=== PATIENT | female | born 1950 | race Caucasian/White ===

== ENCOUNTER 2017-08-07 15:46 | Emergency (ER) | payer MEDICARE, OTHER ==
[2017-08-07] MEDS ORDERED: ONDANSETRON 4 MG/2 ML VIAL IVP STA (16:05)
[2017-08-07] MEDS ORDERED: SODIUM CHLORIDE 0.9% 1,000 ML IV STA ×2 (16:05)
[2017-08-07] MEDS ORDERED: ACETAMINOPHEN IV (For NPO) 1,000 MG in EMPTY BAG 1 BAG IVPB STA (16:05)
[2017-08-07] MEDS ORDERED: KETOROLAC 30 MG/ML 1 ML VIAL IVP STA (16:05)
--- NOTE | 2017-08-07 16:06 | ED ---
General Adult HPI - General Chief complaint: Fever Stated complaint: Diarrhea Time Seen by Provider: 08/07/17 16:04 Source: patient, RN notes reviewed, old records reviewed Mode of arrival: ambulatory Limitations: no limitations - History of Present Illness Initial comments: This is a 67 showed female to the ER for evaluation. This patient presents for evaluation regarding nausea vomiting and diarrhea. Patient will slurred of fever. No recent antibiotic use. Denies cough or congestion no sore throat no rashes. No dysuria. No blood in her stool or vomit. No known sick contacts or recent travel history. - Related Data Previous Rx's Medication Instructions Recorded Ondansetron Odt [Zofran ODT] 4 mg PO Q8HR PRN #30 tab 08/07/17 Allergies Allergy/AdvReac Type Severity Reaction Status Date / Time Penicillins Allergy Unknown Verified 08/07/17 16:58 Review of Systems ROS Statement: Those systems with pertinent positive or pertinent negative responses have been documented in the HPI. ROS Other: All systems not noted in ROS Statement are negative. Past Medical History Past Medical History: No Reported History History of Any Multi-Drug Resistant Organisms: None Reported Past Surgical History: Joint Replacement Past Psychological History: No Psychological Hx Reported Smoking Status: Never smoker Past Alcohol Use History: None Reported Past Drug Use History: None Reported General Exam Limitations: no limitations General appearance: alert, in no apparent distress Head exam: Present: atraumatic, normocephalic, normal inspection Eye exam: Present: normal appearance, PERRL, EOMI. Absent: scleral icterus, conjunctival injection, periorbital swelling ENT exam: Present: normal exam, mucous membranes moist Neck exam: Present: normal inspection. Absent: tenderness, meningismus, lymphadenopathy Respiratory exam: Present: normal lung sounds bilaterally. Absent: respiratory distress, wheezes, rales, rhonchi, stridor Cardiovascular Exam: Present: normal rhythm, tachycardia, normal heart sounds. Absent: systolic murmur, diastolic murmur, rubs, gallop, clicks GI/Abdominal exam: Present: soft, normal bowel sounds. Absent: distended, tenderness, guarding, rebound, rigid Extremities exam: Present: normal inspection, full ROM, normal capillary refill. Absent: tenderness, pedal edema, joint swelling, calf tenderness Back exam: Present: normal inspection Neurological exam: Present: alert, oriented X3, CN II-XII intact Psychiatric exam: Present: normal affect, normal mood Skin exam: Present: warm, dry, intact, normal color. Absent: rash Course Vital Signs 08/07/17 08/07/17 08/07/17 15:54 16:19 16:30 Temperature 102.4 F H 102.5 F H Pulse Rate 112 H 110 H Respiratory 20 18 Rate Blood Pressure 137/62 130/69 O2 Sat by Pulse 96 96 Oximetry 08/07/17 08/07/17 17:52 20:08 Temperature 100.2 F H 99.0 F Pulse Rate 88 106 H Respiratory 18 18 Rate Blood Pressure 100/51 100/53 O2 Sat by Pulse 98 Oximetry EKG Findings - EKG Comments: EKG Findings:: EKG shows sinus tachycardia rate 105, RI 124, QRS 96, QTc 462 Medical Decision Making - Medical Decision Making 67-year-old female to the ER for evaluation of fever. Diarrhea. No source of fever found. Flow as well as significant 30 for fever negative and patient can be discharged home - Lab Data Result diagrams: 08/07/17 16:10 08/07/17 16:10 Lab Results 08/07/17 08/07/17 08/07/17 Range/Units 16:10 16:10 16:10 WBC 15.4 H (3.8-10.6) k/uL RBC 4.49 (3.80-5.40) m/uL Hgb 13.5 (11.4-16.0) gm/dL Hct 40.1 (34.0-46.0) % MCV 89.2 (80.0-100.0) fL MCH 30.0 (25.0-35.0) pg MCHC 33.6 (31.0-37.0) g/dL RDW 14.5 (11.5-15.5) % Plt Count 176 (150-450) k/uL Neutrophils % 83 % Lymphocytes % 4 % Monocytes % 9 % Eosinophils % 0 % Basophils % 0 % Neutrophils # 12.9 H (1.3-7.7) k/uL Lymphocytes # 0.6 L (1.0-4.8) k/uL Monocytes # 1.5 H (0-1.0) k/uL Eosinophils # 0.0 (0-0.7) k/uL Basophils # 0.0 (0-0.2) k/uL PT (9.0-12.0) sec INR (<1.2) APTT (22.0-30.0) sec Sodium 132 L (137-145) mmol/L Potassium 4.0 (3.5-5.1) mmol/L Chloride 101 (98-107) mmol/L Carbon Dioxide 20 L (22-30) mmol/L Anion Gap 11 mmol/L BUN 15 (7-17) mg/dL Creatinine 0.81 (0.52-1.04) mg/dL Est GFR (MDRD) Af Amer >60 (>60 ml/min/1.73 sqM) Est GFR (MDRD) Non-Af >60 (>60 ml/min/1.73 sqM) Glucose 104 H (74-99) mg/dL Calcium 8.9 (8.4-10.2) mg/dL Phosphorus 2.4 L (2.5-4.5) mg/dL Magnesium 1.7 (1.6-2.3) mg/dL Total Bilirubin 1.0 (0.2-1.3) mg/dL AST 25 (14-36) U/L ALT 30 (9-52) U/L Alkaline Phosphatase 73 (38-126) U/L Total Creatine Kinase 95 (30-135) U/L CK-MB (CK-2) 0.7 (0.0-2.4) ng/mL CK-MB (CK-2) Rel Index 0.7 Troponin I 0.017 (0.000-0.034) ng/mL Total Protein 6.5 (6.3-8.2) g/dL Albumin 3.9 (3.5-5.0) g/dL Lipase 56 (23-300) U/L Urine Color Urine Appearance (Clear) Urine pH (5.0-8.0) Ur Specific [place] (1.001-1.035) Urine Protein (Negative) Urine Glucose (UA) (Negative) Urine Ketones (Negative) Urine Blood (Negative) Urine Nitrite (Negative) Urine Bilirubin (Negative) Urine Urobilinogen (<2.0) mg/dL Ur Leukocyte Esterase (Negative) Urine RBC (0-5) /hpf Urine WBC (0-5) /hpf Ur Squamous Epith Cells (0-4) /hpf Urine Bacteria (None) /hpf Cellular Casts (0) /lpf Granular Casts (0) /lpf Urine Mucus (None) /hpf Influenza Type A RNA (Not Detectd) Influenza Type B (PCR) (Not Detectd) 08/07/17 08/07/17 08/07/17 Range/Units 16:10 16:10 16:57 WBC (3.8-10.6) k/uL RBC (3.80-5.40) m/uL Hgb (11.4-16.0) gm/dL Hct (34.0-46.0) % MCV (80.0-100.0) fL MCH (25.0-35.0) pg MCHC (31.0-37.0) g/dL RDW (11.5-15.5) % Plt Count (150-450) k/uL Neutrophils % % Lymphocytes % % Monocytes % % Eosinophils % % Basophils % % Neutrophils # (1.3-7.7) k/uL Lymphocytes # (1.0-4.8) k/uL Monocytes # (0-1.0) k/uL Eosinophils # (0-0.7) k/uL Basophils # (0-0.2) k/uL PT 12.1 H (9.0-12.0) sec INR 1.2 H (<1.2) APTT 29.3 (22.0-30.0) sec Sodium (137-145) mmol/L Potassium (3.5-5.1) mmol/L Chloride (98-107) mmol/L Carbon Dioxide (22-30) mmol/L Anion Gap mmol/L BUN (7-17) mg/dL Creatinine (0.52-1.04) mg/dL Est GFR (MDRD) Af Amer (>60 ml/min/1.73 sqM) Est GFR (MDRD) Non-Af (>60 ml/min/1.73 sqM) Glucose (74-99) mg/dL Calcium (8.4-10.2) mg/dL Phosphorus (2.5-4.5) mg/dL Magnesium (1.6-2.3) mg/dL Total Bilirubin (0.2-1.3) mg/dL AST (14-36) U/L ALT (9-52) U/L Alkaline Phosphatase (38-126) U/L Total Creatine Kinase (30-135) U/L CK-MB (CK-2) (0.0-2.4) ng/mL CK-MB (CK-2) Rel Index Troponin I (0.000-0.034) ng/mL Total Protein (6.3-8.2) g/dL Albumin (3.5-5.0) g/dL Lipase (23-300) U/L Urine Color Yellow Urine Appearance Cloudy H (Clear) Urine pH 5.5 (5.0-8.0) Ur Specific [place] 1.023 (1.001-1.035) Urine Protein 2+ H (Negative) Urine Glucose (UA) Negative (Negative) Urine Ketones 2+ H (Negative) Urine Blood Moderate H (Negative) Urine Nitrite Negative (Negative) Urine Bilirubin Negative (Negative) Urine Urobilinogen <2.0 (<2.0) mg/dL Ur Leukocyte Esterase Negative (Negative) Urine RBC 15 H (0-5) /hpf Urine WBC 6 H (0-5) /hpf Ur Squamous Epith Cells <1 (0-4) /hpf Urine Bacteria Occasional H (None) /hpf Cellular Casts 1 (0) /lpf Granular Casts 6 (0) /lpf Urine Mucus Moderate H (None) /hpf Influenza Type A RNA Not Detected (Not Detectd) Influenza Type B (PCR) Not Detected (Not Detectd) - Radiology Data Radiology results: report reviewed (Gallbladder ultrasound, x-ray, CT head and pelvis is negative for acute disease), image reviewed Disposition Clinical Impression: Viral infection, Fever, Colitis Disposition: HOME SELF-CARE Condition: Good Instructions: Fever in Adults (ED), Colitis (ED) Prescriptions: Ondansetron Odt [Zofran ODT] 4 mg PO Q8HR PRN #30 tab PRN Reason: nausea/vomiting Referrals: Joby Loredo DO [Primary Care Provider] - 1-2 days
[2017-08-07 16:37] VITALS: RESP 18
[2017-08-07 16:43] LABS: Basophils % (A) 0 %; CH 29.3; CHCM 33.1; Eosinophils % (A) 0 %; HCT 40.1 % (34.0-46.0); HDW 2.58; HGB 13.5 gm/dL (11.4-16.0); Luc # (Auto) 0.42; Luc % (Auto) 3; Lymphocytes # (A) 0.6 k/uL (1.0-4.8); Lymphocytes % (A) 4 %; MCHC 33.6 g/dL (31.0-37.0); MCV 89.2 fL (80.0-100.0); Monocytes # (A) 1.5 k/uL (0-1.0); Monocytes % (A) 9 %; Neutrophils # (A) 12.9 k/uL (1.3-7.7); Neutrophils % (A) 83 %; RBC 4.49 m/uL (3.80-5.40); RDW 14.5 % (11.5-15.5); WBC 15.4 k/uL (3.8-10.6); WBC (Perox) 16.05
--- NOTE | 2017-08-07 16:48 | XR ---
EXAMINATION TYPE: XR chest 2V DATE OF EXAM: 08/07/2017 COMPARISON: NONE HISTORY: Weakness and diarrhea TECHNIQUE: Frontal and lateral views of the chest are obtained. FINDINGS: Heart is enlarged. There is no heart failure. Lungs are clear of consolidation. There is m ild thoracolumbar kyphotic curvature with 15% wedging of T12 vertebra. There is 10% wedging of T11. T here are no hilar masses. IMPRESSION: Cardiomegaly. No acute lung disease.
[2017-08-07 16:53] LABS: INR 1.2 (<1.2); Partial Thromboplastin Time 29.3 sec (22.0-30.0); Prothrombin Time 12.1 sec (9.0-12.0)
[2017-08-07 16:57] LABS: ALT 30 U/L (9-52); AST 25 U/L (14-36); Alkaline Phosphatase 73 U/L (38-126); Anion Gap 11 mmol/L; Blood Urea Nitrogen 15 mg/dL (7-17); Calcium 8.9 mg/dL (8.4-10.2); Carbon Dioxide 20 mmol/L (22-30); Chloride 101 mmol/L (98-107); Glucose 104 mg/dL (74-99); Magnesium 1.7 mg/dL (1.6-2.3); Non-African American GFR(MDRD) >60 (>60 ml/min/1.73 sqM); Phosphorus 2.4 mg/dL (2.5-4.5); Sodium 132 mmol/L (137-145); Total Protein 6.5 g/dL (6.3-8.2)
[2017-08-07 17:12] LABS: Appearance,Urine Cloudy (Clear); Bacteria,Urine Occasional /hpf; Bilirubin,Urine Negative (Negative); Glucose,Urine (UA) Negative (Negative); Granular Casts,Urine 6 /lpf (0); Ketones,Urine 2+ (Negative); Leukocyte Esterase,Urine Negative (Negative); Mucus,Urine Moderate /hpf; Nitrite,Urine Negative (Negative); PH, Urine 5.5 (5.0-8.0); Particle Count 17182; Protein,Urine 2+ (Negative); RBC,Urine 15 /hpf (0-5); Specific Gravity,Urine 1.023 (1.001-1.035); Squamous Epithelial Cell,Urine <1 /hpf (0-4); UA Billing (MACRO vs. MICRO) MICRO; Urobilinogen,Urine <2.0 mg/dL (<2.0); WBC,Urine 6 /hpf (0-5)
[2017-08-07 17:17] LABS: Creatine Kinase MB 0.7 ng/mL (0.0-2.4); Troponin I 0.017 ng/mL (0.000-0.034)
[2017-08-07] MEDS ORDERED: RX INFO: IV CONTRAST WAS GIVEN 1 EACH MISC MISCELLANE PRN (17:52)
--- NOTE | 2017-08-07 18:59 | CT ---
EXAMINATION TYPE: CT abdomen pelvis w con DATE OF EXAM: 08/07/2017 COMPARISON: NONE HISTORY: Fever and diarrhea x4 days. CT DLP: 865 mGycm Automated exposure control for dose reduction was used. TECHNIQUE: Helical acquisition of images was performed from the lung bases through the pelvis. CONTRAST: Performed without Oral Contrast and with IV Contrast, patient injected with 100 mL of Omnipaque 300. FINDINGS: Heart is markedly enlarged. There is some patchy atelectasis at the lung bases. There is no pleural e ffusion. Gallbladder is large and measures 4.5 cm in diameter. There is mild enlargement of the biliary tree. The common bile duct measures 8 mm. The pancreas appears normal. Spleen is large. There is no adrenal mass. Kidneys show satisfactory contrast opacification. There is no hydronephrosi s. Left hip prosthesis is noted. There is fluid in the rectosigmoid colon. The bladder distends augusta hly. Detail in the pelvis is limited by metal artifact. Appendix is not seen. There is no sign of cornelia endicitis. There are tortuous veins at the splenic hilum. There is a large portal vein that measures 1.8 cm. There are probably some varices at the gastroesophageal junction. IMPRESSION: THERE IS FLUID IN THE RECTOSIGMOID COLON CONSISTENT WITH DIARRHEA. MILD DILATION OF THE BILIARY TREE AND BORDERLINE DILATED GALLBLADDER. THIS IS CONSISTENT WITH GALLBLA DDER DYSFUNCTION. COMMON BILE DUCT OBSTRUCTION CANNOT BE EXCLUDED. BORDERLINE SPLENOMEGALY. THERE IS EVIDENCE FOR PORTAL VENOUS HYPERTENSION. CARDIOMEGALY.
--- NOTE | 2017-08-07 20:03 | US ---
EXAMINATION TYPE: US gallbladder DATE OF EXAM: 08/07/2017 COMPARISON: NONE CLINICAL HISTORY: Pain. Diarrhea EXAM MEASUREMENTS: Liver Length: 15.4 cm Gallbladder Wall: 0.19 cm CBD: 0.53 cm Right Kidney: 9.3 x 3.4 x 4.2 cm Pancreas: wnl Liver: wnl Gallbladder: wnl Evidence for sonographic Borjas's sign: No CBD: wnl Right Kidney: No hydronephrosis or masses seen IMPRESSION: Negative right upper quadrant abdominal sonogram. No gallstones or dilated ducts.
[2017-08-07 20:09] VITALS: BP 100/53; PULSE 106; TEMP 99
== END 2017-08-07 20:33 | disposition home or self-care (01) ==
LOC: SUPCPDRO 15:46 → EC 15:46
DX: K52.9 Noninfective gastroenteritis and colitis, unspecified (principal); B34.9 Viral infection, unspecified; Z88.0 Allergy status to penicillin
CPT/HCPCS: 36415; 93005; 80053; 82550; 82553; 83690; 83735; 84100; 84484; 85025; 85610; 85730; 81001; 87040; 87086; 87502; 71020; 76705; 74177; 99284; 96374; 96375 ×2; 96361 ×4; J2405; J1885; Q9967; J0131

== ENCOUNTER 2017-08-08 17:52 | Inpatient (IN) | payer MEDICARE ==
[2017-08-08] MEDS ORDERED: SODIUM CHLORIDE 0.9% 1,000 ML IV STA ×2 (18:02)
[2017-08-08] MEDS ORDERED: IBUPROFEN 600 MG TAB PO STA (18:02)
[2017-08-08] MEDS ORDERED: ACETAMINOPHEN TAB 500 MG TAB PO STA (18:02)
[2017-08-08] MEDS ORDERED: SODIUM CHLORIDE 0.9% 500 ML IV STA (18:02)
[2017-08-08 18:40] LABS: Basophils # (A) 0.1 k/uL (0-0.2); Basophils % (A) 0 %; CH 30.3; CHCM 33.3; Eosinophils % (A) 0 %; HCT 42.7 % (34.0-46.0); HDW 2.74; Luc # (Auto) 0.26; Luc % (Auto) 1; Lymphocytes # (A) 0.3 k/uL (1.0-4.8); MCH 29.9 pg (25.0-35.0); MCHC 32.7 g/dL (31.0-37.0); MCV 91.3 fL (80.0-100.0); Mean Platelet Volume 7.7; Monocytes # (A) 1.3 k/uL (0-1.0); Monocytes % (A) 6 %; Neutrophils # (A) 20.8 k/uL (1.3-7.7); RBC 4.67 m/uL (3.80-5.40); RDW 13.2 % (11.5-15.5); WBC 22.7 k/uL (3.8-10.6)
[2017-08-08 18:44] LABS: Lymphocytes % (A) 1 %; Neutrophils % (A) 92 %
[2017-08-08 18:52] LABS: ALT 37 U/L (9-52); AST 29 U/L (14-36); Alkaline Phosphatase 85 U/L (38-126); Anion Gap 13 mmol/L; Blood Urea Nitrogen 28 mg/dL (7-17); Carbon Dioxide 19 mmol/L (22-30); Chloride 99 mmol/L (98-107); Glucose 94 mg/dL (74-99); Non-African American GFR(MDRD) 50 (>60 ml/min/1.73 sqM); Potassium 4.1 mmol/L (3.5-5.1); Sodium 131 mmol/L (137-145); Total Bilirubin 0.8 mg/dL (0.2-1.3); Total Protein 5.9 g/dL (6.3-8.2)
--- NOTE | 2017-08-08 18:54 | ED ---
General Adult HPI - General Chief complaint: Fever Stated complaint: disoriented, confused Time Seen by Provider: 08/08/17 18:01 Source: patient, RN notes reviewed, old records reviewed Mode of arrival: ambulatory Limitations: no limitations - History of Present Illness Initial comments: This is a 67-year-old female to the ER for evaluation. Patient's mildly altered secondary to likely dehydration and fever. Patient brought in by past or who found patient not acting appropriately. Patient states she's had persistent fever since her ER discharge yesterday she does remember event is remarkable going home states she has not been eating or drinking since she left the hospital does not feel well. But doesn't denies any new complaints aside from diarrhea. No headache chest pain shortness of breath no neck pain back pain no abdominal pain. No nausea vomiting. Has had 2 episodes of diarrhea. - Related Data Home Medications Medication Instructions Recorded Confirmed Acetaminophen Tab [Tylenol Tab] 325 - 650 mg PO Q4H PRN 08/08/17 08/08/17 Previous Rx's Medication Instructions Recorded Ondansetron Odt [Zofran ODT] 4 mg PO Q8HR PRN #30 tab 08/07/17 Allergies Allergy/AdvReac Type Severity Reaction Status Date / Time Penicillins Allergy Unknown Verified 08/08/17 18:57 Review of Systems ROS Statement: Those systems with pertinent positive or pertinent negative responses have been documented in the HPI. ROS Other: All systems not noted in ROS Statement are negative. Past Medical History Past Medical History: No Reported History History of Any Multi-Drug Resistant Organisms: None Reported Past Surgical History: Joint Replacement Past Psychological History: Anxiety Smoking Status: Never smoker Past Alcohol Use History: None Reported Past Drug Use History: None Reported General Exam Limitations: no limitations General appearance: alert, in no apparent distress, anxious, in distress Head exam: Present: atraumatic, normocephalic, normal inspection Eye exam: Present: normal appearance, PERRL, EOMI. Absent: scleral icterus, conjunctival injection, periorbital swelling ENT exam: Present: mucous membranes dry Neck exam: Present: normal inspection. Absent: tenderness, meningismus, lymphadenopathy Respiratory exam: Present: normal lung sounds bilaterally. Absent: respiratory distress, wheezes, rales, rhonchi, stridor Cardiovascular Exam: Present: normal rhythm, tachycardia, normal heart sounds. Absent: systolic murmur, diastolic murmur, rubs, gallop, clicks GI/Abdominal exam: Present: soft, normal bowel sounds. Absent: distended, tenderness, guarding, rebound, rigid Extremities exam: Present: normal inspection, full ROM, normal capillary refill. Absent: tenderness, pedal edema, joint swelling, calf tenderness Back exam: Present: normal inspection Neurological exam: Present: alert, oriented X3, CN II-XII intact Psychiatric exam: Present: normal affect, normal mood Skin exam: Present: warm, dry, intact, normal color. Absent: rash Course Vital Signs 08/08/17 08/08/17 17:53 19:17 Temperature 103.2 F H 99.1 F Pulse Rate 133 H 97 Respiratory 20 18 Rate Blood Pressure 137/75 110/53 O2 Sat by Pulse 96 Oximetry - Reevaluation(s) Reevaluation #1: 08/08/17 19:22 ER visit from yesterday is thoroughly reviewed Reevaluation #2: 08/08/17 19:22 Symptoms control at this point EKG Findings - EKG Comments: EKG Findings:: EKG shows sinus tachycardia rate 119, RI 126, QRS 92, QTc 450 Medical Decision Making - Medical Decision Making 67-year-old ER for evaluation of persistent fever, altered mental status. Patient's coming in the ER for evaluation regarding consistent fever since yesterday continued diarrhea. Patient denies any other complaints of fever no source of fever found. Patient is increased white count from yesterday today and will admit for hospital antibiotic coverage and continued evaluation and treatment, rehydration. - Lab Data Result diagrams: 08/08/17 18:18 08/08/17 18:18 Lab Results 08/08/17 08/08/17 08/08/17 Range/Units 18:18 18:18 18:18 WBC 22.7 H (3.8-10.6) k/uL RBC 4.67 (3.80-5.40) m/uL Hgb 14.0 (11.4-16.0) gm/dL Hct 42.7 (34.0-46.0) % MCV 91.3 (80.0-100.0) fL MCH 29.9 (25.0-35.0) pg MCHC 32.7 (31.0-37.0) g/dL RDW 13.2 (11.5-15.5) % Plt Count 214 (150-450) k/uL Neutrophils % 92 % Lymphocytes % 1 % Monocytes % 6 % Eosinophils % 0 % Basophils % 0 % Neutrophils # 20.8 H (1.3-7.7) k/uL Lymphocytes # 0.3 L (1.0-4.8) k/uL Monocytes # 1.3 H (0-1.0) k/uL Eosinophils # 0.0 (0-0.7) k/uL Basophils # 0.1 (0-0.2) k/uL Sodium 131 L (137-145) mmol/L Potassium 4.1 (3.5-5.1) mmol/L Chloride 99 (98-107) mmol/L Carbon Dioxide 19 L (22-30) mmol/L Anion Gap 13 mmol/L BUN 28 H (7-17) mg/dL Creatinine 1.10 H (0.52-1.04) mg/dL Est GFR (MDRD) Af Amer >60 (>60 ml/min/1.73 sqM) Est GFR (MDRD) Non-Af 50 (>60 ml/min/1.73 sqM) Glucose 94 (74-99) mg/dL Plasma Lactic Acid Karel (0.7-2.0) mmol/L Calcium 9.0 (8.4-10.2) mg/dL Total Bilirubin 0.8 (0.2-1.3) mg/dL AST 29 (14-36) U/L ALT 37 (9-52) U/L Alkaline Phosphatase 85 (38-126) U/L Total Protein 5.9 L (6.3-8.2) g/dL Albumin 3.6 (3.5-5.0) g/dL Urine Color Urine Appearance (Clear) Urine pH (5.0-8.0) Ur Specific [place] (1.001-1.035) Urine Protein (Negative) Urine Glucose (UA) (Negative) Urine Blood (Negative) Urine Nitrite (Negative) Urine Bilirubin (Negative) Urine Urobilinogen (<2.0) mg/dL Ur Leukocyte Esterase (Negative) Urine RBC (0-5) /hpf Urine WBC (0-5) /hpf Urine Bacteria (None) /hpf Granular Casts (0) /lpf Urine Mucus (None) /hpf Urine Yeast (Budding) (None) /hpf Influenza Type A RNA Not Detected (Not Detectd) Influenza Type B (PCR) Not Detected (Not Detectd) Group A Strep Rapid (Negative) 08/08/17 08/08/17 08/08/17 Range/Units 18:18 18:18 19:00 WBC (3.8-10.6) k/uL RBC (3.80-5.40) m/uL Hgb (11.4-16.0) gm/dL Hct (34.0-46.0) % MCV (80.0-100.0) fL MCH (25.0-35.0) pg MCHC (31.0-37.0) g/dL RDW (11.5-15.5) % Plt Count (150-450) k/uL Neutrophils % % Lymphocytes % % Monocytes % % Eosinophils % % Basophils % % Neutrophils # (1.3-7.7) k/uL Lymphocytes # (1.0-4.8) k/uL Monocytes # (0-1.0) k/uL Eosinophils # (0-0.7) k/uL Basophils # (0-0.2) k/uL Sodium (137-145) mmol/L Potassium (3.5-5.1) mmol/L Chloride (98-107) mmol/L Carbon Dioxide (22-30) mmol/L Anion Gap mmol/L BUN (7-17) mg/dL Creatinine (0.52-1.04) mg/dL Est GFR (MDRD) Af Amer (>60 ml/min/1.73 sqM) Est GFR (MDRD) Non-Af (>60 ml/min/1.73 sqM) Glucose (74-99) mg/dL Plasma Lactic Acid [place] 1.0 (0.7-2.0) mmol/L Calcium (8.4-10.2) mg/dL Total Bilirubin (0.2-1.3) mg/dL AST (14-36) U/L ALT (9-52) U/L Alkaline Phosphatase (38-126) U/L Total Protein (6.3-8.2) g/dL Albumin (3.5-5.0) g/dL Urine Color Dark Brown Urine Appearance Cloudy H (Clear) Urine pH 5.5 (5.0-8.0) Ur Specific [place] 1.033 (1.001-1.035) Urine Protein 3+ H (Negative) Urine Glucose (UA) Negative (Negative) Urine Blood Moderate H (Negative) Urine Nitrite Negative (Negative) Urine Bilirubin 1+ H (Negative) Urine Urobilinogen 3.0 (<2.0) mg/dL Ur Leukocyte Esterase Negative (Negative) Urine RBC 5 (0-5) /hpf Urine WBC 11 H (0-5) /hpf Urine Bacteria Rare H (None) /hpf Granular Casts 8 (0) /lpf Urine Mucus Rare H (None) /hpf Urine Yeast (Budding) Few H (None) /hpf Influenza Type A RNA (Not Detectd) Influenza Type B (PCR) (Not Detectd) Group A Strep Rapid Negative (Negative) - Radiology Data Radiology results: report reviewed (X-ray abdominal series with chest is negative), image reviewed Disposition Clinical Impression: Viral infection, Fever, Colitis Disposition: ADMITTED IP TO THIS HOSP Condition: Fair Referrals: Joby Loredo DO [Primary Care Provider] - 1-2 days
--- NOTE | 2017-08-08 19:01 | XR ---
EXAMINATION TYPE: XR abdomen acute w cxr DATE OF EXAM: 08/08/2017 COMPARISON: NONE HISTORY: Confusion pain and fever TECHNIQUE: Supine, upright, and left side down lateral decubitus views of the abdomen are obtained. FINDINGS: Heart is enlarged. There is no gross heart failure. There is no sign of intestinal obstruction or pne umoperitoneum. Fecal pattern is normal. There is probably infiltrate in the left lower lobe. There ar e some amorphous calcifications over the left upper quadrant. I see no calculi in the left kidney on the CT scan yesterday. There is left hip prosthesis. IMPRESSION: Nonacute abdomen. Cardiomegaly. There is a possible new pneumonia in the left lower lobe compared to CT scan yesterday.
[2017-08-08 19:16] LABS: Appearance,Urine Cloudy (Clear); Bacteria,Urine Rare /hpf; Bilirubin,Urine 1+ (Negative); Glucose,Urine (UA) Negative (Negative); Granular Casts,Urine 8 /lpf (0); Ketones,Urine 2+ (Negative); Leukocyte Esterase,Urine Negative (Negative); Mucus,Urine Rare /hpf; Nitrite,Urine Negative (Negative); PH, Urine 5.5 (5.0-8.0); Particle Count 32292; Protein,Urine 3+ (Negative); RBC,Urine 5 /hpf (0-5); Specific Gravity,Urine 1.033 (1.001-1.035); UA Billing (MACRO vs. MICRO) MICRO; WBC,Urine 11 /hpf (0-5)
[2017-08-08] MEDS ORDERED: LEVOFLOXACIN 750MG-D5W PMX 750 MG in DEXTROSE/WATER 1 150ML.BAG IVPB STA (19:19)
[2017-08-08] MEDS ORDERED: SODIUM CHLORIDE 0.9% 1,000 ML IV SCH (19:30)
[2017-08-08] MEDS: SODIUM CHLORIDE 0.9% 500 ML IV SCH ×2 (19:47→20:20)
[2017-08-08 23:15] VITALS: BMI 21.3
[2017-08-09] MEDS: SODIUM CHLORIDE 0.9% 500 ML IV SCH (00:45)
[2017-08-09] MEDS: LACTATED RINGERS 1,000 ML IV SCH ×3 (04:59→16:25)
[2017-08-09] MEDS: ENOXAPARIN 40 MG/0.4 ML SYRINGE SQ SCH (07:55)
[2017-08-09] MEDS: metroNIDAZOLE 250 MG TABLET PO SCH ×3 (07:55→21:32)
[2017-08-09] MEDS ORDERED: ACETAMINOPHEN TAB 325 MG TAB PO PRN (08:40)
[2017-08-09] MEDS: ACETAMINOPHEN TAB 325 MG TAB PO PRN (09:17)
--- NOTE | 2017-08-09 12:05 | HP ---
HISTORY AND PHYSICAL DATE OF ADMISSION: 08/08/17 DATE OF SERVICE: 08/09/17. PRESENTING COMPLAINT: Not feeling well, fever. HISTORY OF PRESENTING COMPLAINT: This is a very pleasant 67-year-old patient of Dr. Loredo. Unremarkable past medical history. 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 About close to 7-10 days ago, she started having abdominal pain, diarrhea which progressed to get worse started over to 3 times a day up to now 10 times a day yesterday. Denied any blood. Developed a fever, weak, tired, lethargic. The patient presented for the same. Denies any urinary symptoms. Denies any respiratory symptoms. Denies any skin symptoms. REVIEW OF SYSTEMS: CONSTITUTIONAL: Weak, tired, febrile. HEENT: None. RESPIRATORY: None. CARDIOVASCULAR: None. GASTROINTESTINAL: As above. GENITOURINARY: None. MUSCULOSKELETAL: None. DERMATOLOGICAL: Chronic change in the feet. HEMATOLOGIC, LYMPHATIC: None. PSYCHIATRY: The patient was slightly confused yesterday. NEUROLOGICAL: None. PAST MEDICAL HISTORY: Shingles with chronic feet changes including ingrowing toenail for which she sees a mushroom press operator. PAST SURGICAL HISTORY: Left hip replacement. SOCIAL HISTORY: No smoking, no alcohol. Lives by herself. FAMILY HISTORY: Reviewed, noncontributory to presentation. HOME MEDICATIONS: 1. Zofran 4 mg q.8h p.r.n. 2. Tylenol 325 q.4h p.r.n. ALLERGIES: PENICILLIN. PHYSICAL EXAMINATION: Vital signs on presentation temperature 103.2, pulse 133, respiratory blood pressure 137/75, pulse ox 96% on room air. GENERAL APPEARANCE: Average build lying in bed, tired appearing. EYES: Pupils equal. Conjunctivae normal. HEENT: Oral cavity dry mucous membrane. NECK: JVD not raised. Mass not palpable. RESPIRATORY: Effort normal. Lungs are clear. CARDIOVASCULAR: 1st and 2nd sounds normal. No edema. ABDOMEN: Soft. Mild tenderness, diffuse. Liver and spleen not palpable. No guarding or rigidity. LYMPHATIC: No lymph node palpable in the neck or axillae. PSYCHIATRY: Alert and oriented x3. Mood and affect normal. NEUROLOGICAL: Pupils equal. Cranial nerves grossly intact. Power and sensation grossly intact. INVESTIGATIONS: White count 22.7, potassium 4.1, sodium 131, BUN 20, creatinine 1.10. Urine protein 3+, ketone 2+. Stool positive for C. diff. ASSESSMENT: 1. Acute C diff colitis causing severe sepsis on presentation including acute delirium, present on admission from patient having received clindamycin recently. 2. Hyponatremia. 3. Clinical dehydration. PLAN: Patient is started on IV fluids and started on Flagyl. The patient will be put on a liquid diet and Lovenox for DVT prophylaxis. We will check serum osmolality and sodium. Care was discussed with the patient. Questions were answered. MMODL / IJN: [id number] /
[2017-08-09 12:18] LABS: CH 29.3; CHCM 31.8; HDW 2.64; HGB 12.5 gm/dL (11.4-16.0); MCH 29.8 pg (25.0-35.0); MCHC 32.1 g/dL (31.0-37.0); MCV 92.9 fL (80.0-100.0); Mean Platelet Volume 7.9; RDW 14.3 % (11.5-15.5)
[2017-08-09 12:32] LABS: Anion Gap 9 mmol/L; Blood Urea Nitrogen 19 mg/dL (7-17); Calcium 8.3 mg/dL (8.4-10.2); Carbon Dioxide 17 mmol/L (22-30); Chloride 106 mmol/L (98-107); Glucose 87 mg/dL (74-99); Non-African American GFR(MDRD) >60 (>60 ml/min/1.73 sqM); Potassium 3.6 mmol/L (3.5-5.1); Sodium 132 mmol/L (137-145)
[2017-08-09] MEDS: LACTOBACILLUS ACIDOPH & BULGAR 1 EACH PACKET PO SCH ×3 (12:57→21:32)
[2017-08-09] MEDS ORDERED: LEVOFLOXACIN 750MG-D5W PMX 750 MG in DEXTROSE/WATER 1 150ML.BAG IVPB SCH (20:00)
[2017-08-10] MEDS: LACTATED RINGERS 1,000 ML IV SCH ×4 (00:53→23:24)
[2017-08-10] MEDS: metroNIDAZOLE 250 MG TABLET PO SCH ×2 (06:00→13:47)
[2017-08-10 08:05] LABS: Basophils % (A) 0 %; CH 29.8; CHCM 32.3; Eosinophils % (A) 0 %; HCT 39.8 % (34.0-46.0); HDW 2.78; HGB 12.5 gm/dL (11.4-16.0); Luc # (Auto) 0.25; Luc % (Auto) 2; Lymphocytes # (A) 0.4 k/uL (1.0-4.8); Lymphocytes % (A) 2 %; MCH 29.1 pg (25.0-35.0); MCHC 31.4 g/dL (31.0-37.0); MCV 92.8 fL (80.0-100.0); Mean Platelet Volume 7.2; Monocytes # (A) 0.6 k/uL (0-1.0); Monocytes % (A) 4 %; Neutrophils # (A) 15.3 k/uL (1.3-7.7); Neutrophils % (A) 93 %; RBC 4.29 m/uL (3.80-5.40); RDW 13.4 % (11.5-15.5); WBC 16.6 k/uL (3.8-10.6); WBC (Perox) 17.11
[2017-08-10 08:23] LABS: Anion Gap 7 mmol/L; Blood Urea Nitrogen 16 mg/dL (7-17); Calcium 8.2 mg/dL (8.4-10.2); Carbon Dioxide 19 mmol/L (22-30); Chloride 105 mmol/L (98-107); Glucose 99 mg/dL (74-99); Non-African American GFR(MDRD) >60 (>60 ml/min/1.73 sqM); Potassium 3.8 mmol/L (3.5-5.1); Sodium 131 mmol/L (137-145)
[2017-08-10] MEDS: LACTOBACILLUS ACIDOPH & BULGAR 1 EACH PACKET PO SCH ×3 (08:28→22:12)
[2017-08-10] MEDS: ACETAMINOPHEN TAB 325 MG TAB PO PRN (08:28)
[2017-08-10] MEDS: ENOXAPARIN 40 MG/0.4 ML SYRINGE SQ SCH (08:28)
--- NOTE | 2017-08-10 18:45 | PN ---
PROGRESS NOTE DATE OF SERVICE: 08/10/17. ATTENDING NOTE: This patient seen and examined by me. I discussed with nurse practitioner, Ms. Fortune. The patient is admitted with C diff colitis, some improvement in the diarrhea. Still tired. The patient is still what she eats. PHYSICAL EXAMINATION: Temperature 98.5, pulse 94, respirations 16, blood pressure 120/73, pulse ox 95% on room air. ABDOMEN: Soft, minimal tender. LUNGS: Clear. CARDIOVASCULAR: First and second sounds normal. INVESTIGATIONS: White count 15.6, potassium 3.8, serum osmolality 271. ASSESSMENT: 1. Acute C diff colitis causing severe sepsis on presentation including acute delirium, improving slowly. 2. Hyposmolar hyponatremia. 3. Clinical dehydration. 4. Metabolic acidosis. PLAN: Will change the patient from Flagyl to oral vancomycin even though the diarrhea is slowly improving. The patient will be advanced to soft bland diet as she is very selective to what she eats. Continue with IV fluids. Add sodium bicarb tablets. MMODL / IJN: [id number] /
[2017-08-10] MEDS: CHERRY FLAVOR 60 ML BOTTLE PO PRN ×2 (18:46→23:25)
[2017-08-10] MEDS: VANCOMYCIN ORAL SOLUTION 250 MG/5 ML BOTTLE PO SCH ×2 (18:46→23:24)
[2017-08-10] MEDS: SODIUM BICARBONATE TAB 650 MG TAB PO SCH ×2 (18:47→22:13)
[2017-08-11] MEDS: VANCOMYCIN ORAL SOLUTION 250 MG/5 ML BOTTLE PO SCH ×3 (05:55→17:24)
[2017-08-11] MEDS: CHERRY FLAVOR 60 ML BOTTLE PO PRN ×3 (05:55→17:24)
[2017-08-11] MEDS: ENOXAPARIN 40 MG/0.4 ML SYRINGE SQ SCH (07:59)
[2017-08-11] MEDS: LACTOBACILLUS ACIDOPH & BULGAR 1 EACH PACKET PO SCH ×3 (07:59→22:04)
[2017-08-11] MEDS: SODIUM BICARBONATE TAB 650 MG TAB PO SCH ×3 (07:59→22:04)
[2017-08-11 08:17] LABS: Basophils % (A) 0 %; CH 29.8; CHCM 32.2; Eosinophils % (A) 0 %; HCT 40.4 % (34.0-46.0); HDW 2.87; HGB 12.9 gm/dL (11.4-16.0); Luc # (Auto) 0.28; Luc % (Auto) 2; Lymphocytes # (A) 0.3 k/uL (1.0-4.8); Lymphocytes % (A) 2 %; MCH 29.7 pg (25.0-35.0); MCHC 31.9 g/dL (31.0-37.0); MCV 93.2 fL (80.0-100.0); Mean Platelet Volume 7.2; Monocytes # (A) 0.6 k/uL (0-1.0); Monocytes % (A) 4 %; Neutrophils % (A) 92 %; RBC 4.33 m/uL (3.80-5.40); RDW 13.6 % (11.5-15.5); WBC 15.3 k/uL (3.8-10.6); WBC (Perox) 15.89
[2017-08-11 08:30] LABS: Anion Gap 7 mmol/L; Blood Urea Nitrogen 13 mg/dL (7-17); Carbon Dioxide 20 mmol/L (22-30); Chloride 106 mmol/L (98-107); Glucose 112 mg/dL (74-99); Non-African American GFR(MDRD) >60 (>60 ml/min/1.73 sqM); Potassium 3.5 mmol/L (3.5-5.1); Sodium 133 mmol/L (137-145)
[2017-08-11] MEDS: LACTATED RINGERS 1,000 ML IV SCH ×2 (08:45→17:40)
--- NOTE | 2017-08-11 12:18 | CDI ---
In responding to this query, please exercise your independent professional judgment. The [facility] Coding Staff and Clinical Documentation Specialists appreciate your assistance in clarifying documentation, maintaining compliance with coding guidelines, accurately documenting patients condition and capturing severity of illness. The fact that a question is asked does not imply that any particular answer is desired or expected. Communication forms are a method of clarifying documentation and are not made part of the Legal Health Record. Thank you in advance for your clarification. Last Revision, November 2015 Melania Boykin [address] [place] [address] Documentation Clarification Form Date: 08/11/2017 12:03:00 PM From: Milagros Hammonds RN, CCDS Admit Date: 08/08/2017 7:18:00 PM Patient Name: Susanna Krishnamurthy Visit Number: [id number] Dr. Karl Fischer Delirium was documented in the H&P and progress Notes Patient history/risk factors: Foot infection TX as outpt with Abx Clinical Indicators: EC: Patient's mildly altered secondary to likely dehydration and fever. Patient brought in by past or who found patient not acting appropriately. Attending: Severe sepsis with C-diff, clinical dehydration, Hyperosmolar hyponatremia, metabolic acidosis Labs: WBC 22.7/15./16.6/15.3, Na+ 131, BUN 28/19/16, Creatinine 1.1/.78/.73, + C -diff AXR: cardiomegly, new left lower lobe pneumonia compared to CT scan yesterday Treatment: LR @ 125cc/hr Levaquin 750mg IVPB QD 1.5L IVF Bolus In your professional opinion, please clarify the etiology of the altered mental status, if known. Encephalopathy (specify Type-metabolic, toxic, hypertensive and Underlying Medical Illness) Dementia (if know, specify Type and if with/without Behavioral Disturbance) Other condition (please specify) Unable to determine Please document in your progress notes and discharge summary in order to capture severity of illness and risk of mortality. Include clinical findings that support your diagnosis. FYI: Press F11 to launch patient chart. ANGELO
--- NOTE | 2017-08-11 18:06 | P.PN ---
Progress Note - Text Progress Note Date: 08/11/17 DATE OF SERVICE: 08/10/2017 PRESENTING COMPLAINT: Nausea, vomiting, not feeling well HISTORY OF PRESENT ILLNESS: 67-year-old female who presented with not feeling well and fever, finished a course of clindamycin about 3 weeks ago began having abdominal pain about 7-10 days ago with diarrhea which progressively got worse, episodes of diarrhea 10 times a day. Patient admitted with acute C. diff colitis causing severe sepsis. INTERVAL HISTORY: 08/10/2017: Patient seen in follow-up, continues to be nauseated. Has not had any episodes of vomiting today. Diarrhea has slowed down considerably. Patient's ambulatory within the room, can tolerate some of her clear liquid diet. REVIEW OF SYSTEMS: Done for constitutional ,cardiovascular, GI, pulmonary with relevant findings as above. CURRENT MEDICATIONS Tylenol, Lovenox 40 mg subcu daily, Lactinex 1 packet by mouth 3 times a day, sodium bicarbonate tablets. 5 mg by mouth 3 times a day. Vancomycin oral solution 250 mg by mouth every 6 hours. PHYSICAL EXAM VITAL SIGNS: Temperature 100.4, pulse 105, respiratory rate 18, blood pressure 110/70, oxygen saturation 92% on room air. GENERAL APPEARANCE: Sitting up in bed not in distress. EYES: Pupils equal. Conjunctiva normal. HEENT: Oral cavity dry mucous membranes NECK: JVD not raised. Mass not palpable. RESPIRATORY: Respiratory effort normal. Lungs diminished to auscultation. CARDIOVASCULAR: First and second sounds normal. No edema. ABDOMEN: Soft. Liver and spleen not palpable. Mild tenderness. No mass palpable. PSYCHIATRY: Alert and oriented x3. Mood and affect normal. INVESTIGATIONS: White blood cell count 16.6, sodium 131, potassium 3.8 ASSESSMENT: -Acute C. diff colitis causing severe sepsis on presentation including acute delirium, present on admission from patient having clindamycin recently, slow to respond -Hyponatremia, likely hypoosmolar due to decreased oral intake, slow to respond -Clinical dehydration, slow to respond PLAN: Continue IV fluids and antibiotics in the form of Flagyl. Diet changed to a soft diet we'll see how she can tolerate this. Plan of care discussed with the patient at the bedside we will follow closely. 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 Fischer
--- NOTE | 2017-08-11 18:23 | P.PN ---
Progress Note - Text Progress Note Date: 08/11/17 DATE OF SERVICE: 08/11/2017 PRESENTING COMPLAINT: Nausea, vomiting, not feeling well HISTORY OF PRESENT ILLNESS: 67-year-old female who presented with not feeling well and fever, finished a course of clindamycin about 3 weeks ago began having abdominal pain about 7-10 days ago with diarrhea which progressively got worse, episodes of diarrhea 10 times a day. Patient admitted with acute C. diff colitis causing severe sepsis. INTERVAL HISTORY: 08/11/2017: Patient seen in follow-up, remains nauseated, stooling less. No episodes of vomiting today. Patient's ambulatory within the room. Unable to eat much of the food, yogurt is about the only thing she can tolerate. 08/10/2017: Patient seen in follow-up, continues to be nauseated. Has not had any episodes of vomiting today. Diarrhea has slowed down considerably. Patient's ambulatory within the room, can tolerate some of her clear liquid diet. REVIEW OF SYSTEMS: Done for constitutional ,cardiovascular, GI, pulmonary with relevant findings as above. CURRENT MEDICATIONS Tylenol, Lovenox 40 mg subcu daily, Lactinex 1 packet by mouth 3 times a day, sodium bicarbonate tablets. 5 mg by mouth 3 times a day. Vancomycin oral solution 250 mg by mouth every 6 hours. PHYSICAL EXAM VITAL SIGNS: Temperature 99.1, pulse 76, respiratory rate 16, blood pressure 122/74, oxygen saturation 92% on room air. GENERAL APPEARANCE: Lying in bed not in distress. EYES: Pupils equal. Conjunctiva normal. HEENT: Oral cavity dry mucous membranes NECK: JVD not raised. Mass not palpable. RESPIRATORY: Respiratory effort normal. Lungs diminished to auscultation. CARDIOVASCULAR: First and second sounds normal. No edema. ABDOMEN: Soft. Liver and spleen not palpable. No tenderness. No mass palpable. PSYCHIATRY: Alert and oriented x3. Mood and affect normal. INVESTIGATIONS: White blood cell count 15.3, sodium 133, potassium 3.5 ASSESSMENT: -Acute C. diff colitis causing severe sepsis on presentation, present on admission from patient having clindamycin recently, slow to respond -acute delirium likely due to metabolic encephalopathy secondary to severe sepsis, resolved -Hyponatremia, likely hypoosmolar due to decreased oral intake, slow to respond -Clinical dehydration, slow to respond PLAN: Continue IV fluids and antibiotics in the form of Flagyl. Diet changed to a soft diet we'll see how she can tolerate this. Plan of care discussed with the patient at the bedside we will follow closely. 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 Fischer
--- NOTE | 2017-08-11 18:40 | PN ---
PROGRESS NOTE DATE OF SERVICE: August 11, 2017. ATTENDING NOTE: The patient was seen and examined by me. I discussed with my nurse practitioner, Ms. Fortune. Patient admitted with C diff colitis. I started the patient on vancomycin yesterday. Diarrhea slowly getting better. The patient is rather picky about her food, ate some. PHYSICAL EXAMINATION: On examination, afebrile, pulse 76, respirations 16. Blood pressure 120/74. ABDOMEN: Soft, minimal tenderness if any. Bowel sounds are present. INVESTIGATIONS: White count 15.3, potassium 3.5. ASSESSMENT: 1. Acute C diff colitis causing severe sepsis on presentation including acute delirium, slow to respond but improving. 2. Hyposmolar hyponatremia. 3. Metabolic acidosis. PLAN: Keep the patient on current dose of vancomycin. Keep with IV fluids. The patient encouraged to be out of bed. HEENA / UCHEN: [id number] /
[2017-08-12] MEDS: CHERRY FLAVOR 60 ML BOTTLE PO PRN ×3 (00:20→12:02)
[2017-08-12] MEDS: VANCOMYCIN ORAL SOLUTION 250 MG/5 ML BOTTLE PO SCH ×3 (00:20→12:02)
[2017-08-12] MEDS: LACTATED RINGERS 1,000 ML IV SCH ×2 (02:24→10:08)
[2017-08-12 08:03] VITALS: BP 141/94; PULSE 62; RESP 15; TEMP 97.7
[2017-08-12] MEDS: SODIUM BICARBONATE TAB 650 MG TAB PO SCH (08:10)
[2017-08-12] MEDS: LACTOBACILLUS ACIDOPH & BULGAR 1 EACH PACKET PO SCH (08:10)
[2017-08-12] MEDS: ENOXAPARIN 40 MG/0.4 ML SYRINGE SQ SCH (08:10)
[2017-08-12 08:53] LABS: Anion Gap 6 mmol/L; Blood Urea Nitrogen 9 mg/dL (7-17); Calcium 8.3 mg/dL (8.4-10.2); Carbon Dioxide 23 mmol/L (22-30); Chloride 104 mmol/L (98-107); Glucose 119 mg/dL (74-99); Non-African American GFR(MDRD) >60 (>60 ml/min/1.73 sqM); Potassium 3.3 mmol/L (3.5-5.1); Sodium 133 mmol/L (137-145)
--- NOTE | 2017-08-12 17:50 | DS ---
DISCHARGE SUMMARY DATE OF ADMISSION: 08/08/17. DATE OF DISCHARGE: 08/12/17 FINAL DIAGNOSES: 1. Acute C diff colitis with severe sepsis, present on admission from having taking clindamycin recently. 2. Acute delirium and acute metabolic encephalopathy secondary to severe sepsis, present on admission, resolved. 3. Hyponatremia likely hypoosmolar due to decreased salt intake. 4. Dehydration present on admission. HOSPITAL COURSE: This is a patient who presents with diarrhea for which C diff colitis positive. Responded well to vancomycin. At the time of discharge was down to 1 or 2 bowel movements a day. Diet is greatly improved. Up and about. No further abdominal pain. PHYSICAL EXAMINATION: On exam abdomen is soft, nontender. Psych AO x3 3. Care was discussed with the patient. DISCHARGE MEDICATIONS: 1. Zofran 4 mg q.8h p.r.n. 2. Lactinex 1 tab p.o. t.i.d., 60 tablets. 3. Sodium bicarb 325 p.o. t.i.d. 4. Vancomycin 250 mg p.o. q.6 for [address] Loredo on August 15, 2017. Diet soft bland. Care was discussed the patient and friend at the bedside. Questions were answered. Copy to Dr. Loredo. MMODL / IJN: [id number] /
== END 2017-08-12 16:00 | disposition home or self-care (01) | DRG 871 ==
LOC: EC 17:52 → 4MS4W 19:18
PROVIDERS: ADMIT Hospitalist; ATTEND Hospitalist
DX: A41.9 Sepsis, unspecified organism (principal); G93.41 Metabolic encephalopathy; E87.2 Acidosis; A04.72 Enterocolitis due to Clostridium difficile, not specified as recurrent; E87.1 Hypo-osmolality and hyponatremia; R65.20 Severe sepsis without septic shock; E86.0 Dehydration; Z96.642 Presence of left artificial hip joint; Z88.0 Allergy status to penicillin
CPT/HCPCS: 36415; 71020; 74022; 74177; 76705; 80048; 80053; 81001; 82550; 82553; 83605; 83690; 83735; 83930; 84100; 84484; 85025; 85027; 85610; 85730; 87040; 87081; 87086; 87324; 87430; 87502; 93005; 94760; 96361; 96365; 96374; 96375; 99284; 99285

== ENCOUNTER → 2017-12-11 | Outpatient (CLI) | payer MEDICARE ==
--- NOTE | 2017-12-15 10:53 | MM ---
Reason for exam: screening (asymptomatic). Last mammogram was performed 2 years and 9 months ago. History: Patient is postmenopausal and is nulliparous. Benign US biopsy breast VAD LT of the left breast, March 03, 2015. Benign right mammotome panel of the right breast, April 07, 2009. Physical Findings: A clinical breast exam by your physician is recommended on an annual basis and results should be correlated with mammographic findings. MG 3D Screening Mammo W/Cad Bilateral CC and MLO view(s) were taken. Prior study comparison: March 03, 2015, left breast MG diagnostic mammo LT w CAD. February 14, 2015, left breast MG work up mamm w CAD LT. The breast tissue is heterogeneously dense. This may lower the sensitivity of mammography. Stable benign calcifications. No significant changes when compared with prior studies. ASSESSMENT: Benign, BI-RAD 2 RECOMMENDATION: Routine screening mammogram of both breasts in 1 year.
== END | disposition home or self-care (01) ==
LOC: RADMAMWWP 12:50
PROVIDERS: ATTEND Family Medicine
DX: Z12.31 Encounter for screening mammogram for malignant neoplasm of breast (principal)
CPT/HCPCS: 77063; 77067

== ENCOUNTER 2020-02-16 02:53 | Emergency (ER) | payer MEDICARE ==
[2020-02-16] MEDS ORDERED: SODIUM CHLORIDE 0.9% 500 ML 500 ML IV ONE (02:59)
--- NOTE | 2020-02-16 03:02 | ED ---
General Adult HPI - General Source: patient, EMS, RN notes reviewed, old records reviewed <Mateo Ogden - Last Filed: 02/16/20 05:56> <Remigio Rodriguez - Last Filed: 02/16/20 11:43> - General Stated complaint: Altered Mental Status Time Seen by Provider: 02/16/20 02:59 - History of Present Illness Initial comments: 69-year-old female presented for evaluation of confusion, visual hallucination. Patient had contacted police stating that there was agreeable who had been in her house and was now missing. She states that this girl had a cat on a leash and that the cat was no longer on a leash. Please had investigated and there was no child in the home. The patient lives alone with no close family. She denies any previous psychiatric history. She denies fever. She states she has been eating and drinking well. No vomiting. No dyspnea. Patient is convinced that she had a small child in the home with a cat who is now missing. (Mateo Ogden) - Related Data Previous Rx's Medication Instructions Recorded Ondansetron Odt [Zofran ODT] 4 mg PO Q8HR PRN #30 tab 08/07/17 Lactobacillus Acidoph & Bulgar 1 each PO TID #60 packet 08/12/17 [Lactinex] Sodium Bicarbonate Tab 325 mg PO TID tab 08/12/17 Vancomycin Oral Solution 250 mg PO Q6HR 7 Days #140 ml 08/12/17 Allergies Allergy/AdvReac Type Severity Reaction Status Date / Time Penicillins Allergy Unknown Verified 08/08/17 18:57 Review of Systems ROS Other: All systems not noted in ROS Statement are negative. <Mateo Ogden - Last Filed: 02/16/20 05:56> ROS Other: All systems not noted in ROS Statement are negative. <Remigio Rodriguez - Last Filed: 02/16/20 11:43> ROS Statement: Those systems with pertinent positive or pertinent negative responses have been documented in the HPI. Past Medical History Past Medical History: No Reported History Additional Past Medical History / Comment(s): Shingles 10/2016 History of Any Multi-Drug Resistant Organisms: None Reported Past Surgical History: Joint Replacement Additional Past Surgical History / Comment(s): Left hip replacement. Past Psychological History: No Psychological Hx Reported Smoking Status: Never smoker Past Alcohol Use History: None Reported Past Drug Use History: None Reported <Mateo Ogden - Last Filed: 02/16/20 05:56> General Exam General appearance: alert, in no apparent distress Head exam: Present: atraumatic, normocephalic Eye exam: Present: normal appearance, PERRL ENT exam: Present: normal exam, mucous membranes dry Neck exam: Present: normal inspection. Absent: tenderness, meningismus Respiratory exam: Present: normal lung sounds bilaterally. Absent: respiratory distress, wheezes Cardiovascular Exam: Present: regular rate, normal rhythm GI/Abdominal exam: Present: soft. Absent: distended, tenderness, guarding, rebound Extremities exam: Present: normal inspection, full ROM. Absent: tenderness Neurological exam: Present: alert, oriented X3, CN II-XII intact. Absent: motor sensory deficit Psychiatric exam: Present: normal affect, normal mood. Absent: homicidal ideation, suicidal ideation Skin exam: Present: warm, dry, intact. Absent: cyanosis, diaphoretic <Mateo Ogden - Last Filed: 02/16/20 05:56> Course <Mateo Ogden - Last Filed: 02/16/20 05:56> Vital Signs 02/16/20 02/16/20 03:03 11:00 Temperature 98.4 F 98.0 F Pulse Rate 82 78 Respiratory 16 18 Rate Blood Pressure 153/88 130/77 O2 Sat by Pulse 100 99 Oximetry - Reevaluation(s) Reevaluation #1: 02/16/20 04:30 Patient is alert and oriented however she has some persistent odd conversation and continues to refer to the hallucination of a small child with a cat. (Mateo Ogden) Reevaluation #2: 02/16/20 04:31 Multiple attempts to contact the listed next of kin, unsuccessful at this time. (Mateo Ogden) Reevaluation #3: 02/16/20 05:22 Was able to discuss the patient's baseline mental status with her friend Maria Teresa ways her listed next of kin. She states that she's had increasing thoughts and paranoia she has been having hallucinations over the course of several weeks. She states this has progressed over weeks to months. She states that this behav ior is new for this patient, no history of dementia, no history of psychiatric illness. 02/16/20 0600 (Mateo Ogden) EKG Findings - EKG Comments: EKG Findings:: EKG: Sinus rhythm, occasional PVC, short NC, rate of 80, NC interval 102, QRS duration 90, QTC 452, no ST segment elevation <Mateo Ogden - Last Filed: 02/16/20 05:56> Medical Decision Making - Lab Data Result diagrams: 02/16/20 03:23 02/16/20 03:23 <Mateo Ogden - Last Filed: 02/16/20 05:56> - Lab Data Result diagrams: 02/16/20 03:23 02/16/20 03:23 <Remigio Rodriguez - Last Filed: 02/16/20 11:43> - Medical Decision Making 69-year-old female presented to the emergency department after calling 911 stating that there was a small child in her home. She states that the child did not speak and was accompanied by a cat. Workup in the emergency department reveals normal CBC, normal CMP, trace signs of urinary tract infection with culture pending. Head CT is negative for intracranial hemorrhage or mass ef fect. Patient remained stable while the emergency department. Patient's care is signed out at shift change to Dr. Rodriguez awaiting EPS evaluation. (Mateo Ogden) Patient care signed out to me by previous shift physician. Briefly, patient is a 61-year-old female presents with visual hallucinations. Plan at sign out was follow-up with EPS recommendations. Patient medically stable. She is evaluated by EPS. Because recommends discharge. Outpatient planning was arranged by EPS. Patient cooperative likely stable for discharge at this time. Patient not exhibiting any visual or auditory hallucinations at this time. She does not appear to be psychotic upon evaluation. (Remigio Rodriguez) - Lab Data Lab Results 02/16/20 02/16/20 02/16/20 Range/Units 03:23 03:23 03:23 WBC 5.4 (3.8-10.6) k/uL RBC 4.55 (3.80-5.40) m/uL Hgb 13.2 (11.4-16.0) gm/dL Hct 40.8 (34.0-46.0) % MCV 89.7 (80.0-100.0) fL MCH 29.0 (25.0-35.0) pg MCHC 32.3 (31.0-37.0) g/dL RDW 13.4 (11.5-15.5) % Plt Count 178 (150-450) k/uL Neutrophils % 67 % Lymphocytes % 17 % Monocytes % 10 % Eosinophils % 3 % Basophils % 1 % Neutrophils # 3.6 (1.3-7.7) k/uL Lymphocytes # 0.9 L (1.0-4.8) k/uL Monocytes # 0.5 (0-1.0) k/uL Eosinophils # 0.1 (0-0.7) k/uL Basophils # 0.1 (0-0.2) k/uL PT 10.7 (9.0-12.0) sec INR 1.0 (<1.2) APTT 25.0 (22.0-30.0) sec Sodium (137-145) mmol/L Potassium (3.5-5.1) mmol/L Chloride (98-107) mmol/L Carbon Dioxide (22-30) mmol/L Anion Gap mmol/L BUN (7-17) mg/dL Creatinine (0.52-1.04) mg/dL Est GFR (CKD-EPI)AfAm (>60 ml/min/1.73 sqM) Est GFR (CKD-EPI)NonAf (>60 ml/min/1.73 sqM) Glucose (74-99) mg/dL Calcium (8.4-10.2) mg/dL Total Bilirubin (0.2-1.3) mg/dL AST (14-36) U/L ALT (4-34) U/L Alkaline Phosphatase (38-126) U/L Total Protein (6.3-8.2) g/dL Albumin (3.5-5.0) g/dL Urine Color Yellow Urine Appearance Clear (Clear) Urine pH 5.5 (5.0-8.0) Ur Specific [place] 1.009 (1.001-1.035) Urine Protein Negative (Negative) Urine Glucose (UA) Negative (Negative) Urine Ketones Negative (Negative) Urine Blood Negative (Negative) Urine Nitrite Negative (Negative) Urine Bilirubin Negative (Negative) Urine Urobilinogen <2.0 (<2.0) mg/dL Ur Leukocyte Esterase Large H (Negative) Urine RBC <1 (0-5) /hpf Urine WBC 18 H (0-5) /hpf Urine Bacteria Rare H (None) /hpf Urine Mucus Rare H (None) /hpf Urine Opiates Screen Not Detected (NotDetected) Ur Oxycodone Screen Not Detected (NotDetected) Urine Methadone Screen Not Detected (NotDetected) Ur Propoxyphene Screen Not Detected (NotDetected) Ur Barbiturates Screen Not Detected (NotDetected) U Tricyclic Antidepress Not Detected (NotDetected) Ur Phencyclidine Scrn Not Detected (NotDetected) Ur Amphetamines Screen Not Detected (NotDetected) U Methamphetamines Scrn Not Detected (NotDetected) U Benzodiazepines Scrn Not Detected (NotDetected) Urine Cocaine Screen Not Detected (NotDetected) U Marijuana (THC) Screen Not Detected (NotDetected) Serum Alcohol mg/dL 02/16/20 Range/Units 03:23 WBC (3.8-10.6) k/uL RBC (3.80-5.40) m/uL Hgb (11.4-16.0) gm/dL Hct (34.0-46.0) % MCV (80.0-100.0) fL MCH (25.0-35.0) pg MCHC (31.0-37.0) g/dL RDW (11.5-15.5) % Plt Count (150-450) k/uL Neutrophils % % Lymphocytes % % Monocytes % % Eosinophils % % Basophils % % Neutrophils # (1.3-7.7) k/uL Lymphocytes # (1.0-4.8) k/uL Monocytes # (0-1.0) k/uL Eosinophils # (0-0.7) k/uL Basophils # (0-0.2) k/uL PT (9.0-12.0) sec INR (<1.2) APTT (22.0-30.0) sec Sodium 137 (137-145) mmol/L Potassium 4.9 (3.5-5.1) mmol/L Chloride 104 (98-107) mmol/L Carbon Dioxide 26 (22-30) mmol/L Anion Gap 7 mmol/L BUN 20 H (7-17) mg/dL Creatinine 0.72 (0.52-1.04) mg/dL Est GFR (CKD-EPI)AfAm >90 (>60 ml/min/1.73 sqM) Est GFR (CKD-EPI)NonAf 87 (>60 ml/min/1.73 sqM) Glucose 89 (74-99) mg/dL Calcium 9.1 (8.4-10.2) mg/dL Total Bilirubin 0.7 (0.2-1.3) mg/dL AST 35 (14-36) U/L ALT 14 (4-34) U/L Alkaline Phosphatase 43 (38-126) U/L Total Protein 6.8 (6.3-8.2) g/dL Albumin 4.2 (3.5-5.0) g/dL Urine Color Urine Appearance (Clear) Urine pH (5.0-8.0) Ur Specific [place] (1.001-1.035) Urine Protein (Negative) Urine Glucose (UA) (Negative) Urine Ketones (Negative) Urine Blood (Negative) Urine Nitrite (Negative) Urine Bilirubin (Negative) Urine Urobilinogen (<2.0) mg/dL Ur Leukocyte Esterase (Negative) Urine RBC (0-5) /hpf Urine WBC (0-5) /hpf Urine Bacteria (None) /hpf Urine Mucus (None) /hpf Urine Opiates Screen (NotDetected) Ur Oxycodone Screen (NotDetected) Urine Methadone Screen (NotDetected) Ur Propoxyphene Screen (NotDetected) Ur Barbiturates Screen (NotDetected) U Tricyclic Antidepress (NotDetected) Ur Phencyclidine Scrn (NotDetected) Ur Amphetamines Screen (NotDetected) U Methamphetamines Scrn (NotDetected) U Benzodiazepines Scrn (NotDetected) Urine Cocaine Screen (NotDetected) U Marijuana (THC) Screen (NotDetected) Serum Alcohol <10 mg/dL Disposition <Mateo Ogden - Last Filed: 02/16/20 05:56> Is patient prescribed a controlled substance at d/c from ED?: No Time of Disposition: 11:43 <Bayudan,Remigio D - Last Filed: 02/16/20 11:43> Clinical Impression: Hallucinations Disposition: HOME SELF-CARE Condition: Good Instructions (If sedation given, give patient instructions): Hallucinations (ED) Referrals: Joby Loredo DO [Primary Care Provider] - 1-2 days
--- NOTE | 2020-02-16 03:25 | CT ---
EXAMINATION TYPE: CT brain wo con DATE OF EXAM: 02/16/2020 COMPARISON: None HISTORY: AMS CT DLP: 1078.40 mGycm Automated exposure control for dose reduction was used. Ventricles have normal size. There is no mass effect nor midline shift. There is no sign of intracran ial hemorrhage. Calvarium is intact. The skull base is intact. IMPRESSION: Negative unenhanced head CT scan.
[2020-02-16 03:42] LABS: Basophils # (A) 0.1 k/uL (0-0.2); Basophils % (A) 1 %; Eosinophils # (A) 0.1 k/uL (0-0.7); Eosinophils % (A) 3 %; HCT 40.8 % (34.0-46.0); HGB 13.2 gm/dL (11.4-16.0); Lymphocytes # (A) 0.9 k/uL (1.0-4.8); Lymphocytes % (A) 17 %; MCHC 32.3 g/dL (31.0-37.0); MCV 89.7 fL (80.0-100.0); Monocytes # (A) 0.5 k/uL (0-1.0); Monocytes % (A) 10 %; Neutrophils # (A) 3.6 k/uL (1.3-7.7); Neutrophils % (A) 67 %; Platelet Count 178 k/uL (150-450); RBC 4.55 m/uL (3.80-5.40); RDW 13.4 % (11.5-15.5); WBC 5.4 k/uL (3.8-10.6)
[2020-02-16 03:46] LABS: Appearance,Urine Clear (Clear); Bacteria,Urine Rare /hpf; Bilirubin,Urine Negative (Negative); Blood,Urine Negative (Negative); Color,Urine Yellow; Glucose,Urine (UA) Negative (Negative); Ketones,Urine Negative (Negative); Leukocyte Esterase,Urine Large (Negative); Mucus,Urine Rare /hpf; Nitrite,Urine Negative (Negative); PH, Urine 5.5 (5.0-8.0); Protein,Urine Negative (Negative); RBC,Urine <1 /hpf (0-5); Specific Gravity,Urine 1.009 (1.001-1.035); Urobilinogen,Urine <2.0 mg/dL (<2.0); WBC,Urine 18 /hpf (0-5)
[2020-02-16 03:52] LABS: ALT 14 U/L (4-34); AST 35 U/L (14-36); African American GFR (CKD) >90 (>60 ml/min/1.73 sqM); Albumin 4.2 g/dL (3.5-5.0); Alcohol <10 mg/dL; Alkaline Phosphatase 43 U/L (38-126); Amphetamine Screen,Urine Not Detected (NotDetected); Anion Gap 7 mmol/L; Barbiturate Screen,Urine Not Detected (NotDetected); Benzodiazepines Screen,Urine Not Detected (NotDetected); Blood Urea Nitrogen 20 mg/dL (7-17); Calcium 9.1 mg/dL (8.4-10.2); Carbon Dioxide 26 mmol/L (22-30); Chloride 104 mmol/L (98-107); Cocaine Screen,Urine Not Detected (NotDetected); Glucose 89 mg/dL (74-99); Methadone Screen, Urine Not Detected (NotDetected); Non-African American GFR(CKD) 87 (>60 ml/min/1.73 sqM); Opiate Screen,Urine Not Detected (NotDetected); Oxycodone Screen, Urine Not Detected (NotDetected); Phencyclidine Screen,Urine Not Detected (NotDetected); Sodium 137 mmol/L (137-145); Total Bilirubin 0.7 mg/dL (0.2-1.3); Total Protein 6.8 g/dL (6.3-8.2); Tricyclic Antidepressant,Urine Not Detected (NotDetected); Urn Cannabinoid Scrn Not Detected (NotDetected)
[2020-02-16 03:53] LABS: Prothrombin Time 10.7 sec (9.0-12.0)
[2020-02-16 03:55] LABS: Potassium 4.9 mmol/L (3.5-5.1)
[2020-02-16] MEDS ORDERED: cefTRIAXone IN SWFI 1,000 MG/10 ML SYRINGE IVP STA (05:21)
[2020-02-16 11:03] VITALS: BP 130/77; PULSE 78; RESP 18; TEMP 98
== END 2020-02-16 11:50 | disposition home or self-care (01) ==
LOC: EC 02:53
DX: R44.1 Visual hallucinations (principal); R41.82 Altered mental status, unspecified; Z88.0 Allergy status to penicillin; Z96.642 Presence of left artificial hip joint
CPT/HCPCS: 99285 ×2; 96374 ×2; 36415; 93005; 80053; 85025; 85610; 85730; 81001; 80306; 87086; 70450; G0480; J0696; 80320

== ENCOUNTER 2020-02-17 17:49 | Inpatient (IN) | payer MEDICAID, MEDICARE ==
--- NOTE | 2020-02-17 18:26 | ED ---
Psych HPI - General Source: patient Mode of arrival: ambulatory <David Figueroa - Last Filed: 02/17/20 19:40> <Roshan Sherman - Last Filed: 02/17/20 22:58> - General Chief Complaint: Psychiatric Symptoms Stated Complaint: UTI/hallucinations Time Seen by Provider: 02/17/20 18:07 - History of Present Illness Initial Comments: Patient is a 69-year-old female presents emergency department for hallucinations. Patient brought to the ED by her friend. The friend states that she was recently discharged from the hospital with a urinary tract infection. Patient states after she was discharged from the hospital, she continues to have visual hallucinations of people walking in her house. States they keep pushing her away and a running quickly passer. The patient's friend states the patient is not getting better after she was discharged from the hospital. She is concerned for the patient's well-being as she lives alone in a condo with no family members nearby. Patient denies any night sweats fevers or chills. Denies any nausea vomiting diarrhea. Denies any abdominal pain. Denies any suicidal thoughts or ideations. (David Figueroa) - Related Data Home Medications Medication Instructions Recorded Confirmed Alendronate Sodium [Fosamax] 70 mg PO WE 02/16/20 02/17/20 Ergocalciferol [Vitamin D2 50,000 unit PO HULL 02/16/20 02/17/20 (DRISDOL)] Fluticasone Propionate 1 spray EA NOSTRIL DAILY 02/16/20 02/17/20 Metoprolol Succinate [Toprol XL] 25 mg PO DAILY 02/16/20 02/17/20 Aspirin EC [Ecotrin Low Dose] 81 mg PO DAILY 02/17/20 02/17/20 Allergies Allergy/AdvReac Type Severity Reaction Status Date / Time Penicillins Allergy Unknown Verified 02/17/20 21:07 Review of Systems ROS Other: All systems not noted in ROS Statement are negative. <David Figueroa - Last Filed: 02/17/20 19:40> ROS Other: All systems not noted in ROS Statement are negative. <Roshan Sherman - Last Filed: 02/17/20 22:58> ROS Statement: Those systems with pertinent positive or pertinent negative responses have been documented in the HPI. Past Medical History Past Medical History: No Reported History Additional Past Medical History / Comment(s): Shingles 10/2016 History of Any Multi-Drug Resistant Organisms: None Reported Past Surgical History: Joint Replacement Additional Past Surgical History / Comment(s): Left hip replacement. Past Psychological History: No Psychological Hx Reported Smoking Status: Never smoker Past Alcohol Use History: None Reported Past Drug Use History: None Reported <David Figueroa - Last Filed: 02/17/20 19:40> General Exam Limitations: no limitations General appearance: alert, in no apparent distress Head exam: Present: atraumatic, normocephalic, normal inspection Eye exam: Present: normal appearance, PERRL, EOMI Pupils: Present: normal accommodation ENT exam: Present: normal exam Neck exam: Present: normal inspection, full ROM Respiratory exam: Present: normal lung sounds bilaterally Cardiovascular Exam: Present: regular rate, normal rhythm, normal heart sounds Extremities exam: Present: normal inspection, full ROM Back exam: Present: normal inspection, full ROM Neurological exam: Present: alert, CN II-XII intact, normal gait Psychiatric exam: Present: normal affect, normal mood Skin exam: Present: warm, dry, intact, normal color <David Figueroa - Last Filed: 02/17/20 19:40> Course Vital Signs 02/17/20 18:01 Temperature 98.2 F Pulse Rate 85 Respiratory 20 Rate Blood Pressure 111/61 O2 Sat by Pulse 96 Oximetry Medical Decision Making <David Figueroa - Last Filed: 02/17/20 19:40> <Roshan Sherman - Last Filed: 02/17/20 22:58> - Medical Decision Making Patient is 69-year-old female presenting to the emergency department chief complaint of hallucinations. Patient brought to the ED by her friend. UA pending. EPS notified. At this time patient care will be transferred to Dr. Sherman. (David Figueroa) EPS evaluated the patient and determined the patient needed admission. (Roshan Sherman) - Lab Data Lab Results 02/17/20 Range/Units 19:35 Urine Color Yellow Urine Appearance Clear (Clear) Urine pH 5.0 (5.0-8.0) Ur Specific [place] 1.023 (1.001-1.035) Urine Protein Negative (Negative) Urine Glucose (UA) Negative (Negative) Urine Ketones Negative (Negative) Urine Blood Trace H (Negative) Urine Nitrite Negative (Negative) Urine Bilirubin Negative (Negative) Urine Urobilinogen <2.0 (<2.0) mg/dL Ur Leukocyte Esterase Small H (Negative) Urine RBC 2 (0-5) /hpf Urine WBC 12 H (0-5) /hpf Ur Squamous Epith Cells <1 (0-4) /hpf Hyaline Casts 1 (0-2) /lpf Urine Mucus Rare H (None) /hpf Disposition <David Figueroa - Last Filed: 02/17/20 19:40> <Roshan Sherman - Last Filed: 02/17/20 22:58> Clinical Impression: Hallucinations, Acute psychosis Disposition: ADMITTED IP TO THIS HOSP Condition: Good Referrals: Joby Loredo DO [Primary Care Provider] - 1-2 days
[2020-02-17 19:48] LABS: Appearance,Urine Clear (Clear); Bilirubin,Urine Negative (Negative); Blood,Urine Trace (Negative); Color,Urine Yellow; Glucose,Urine (UA) Negative (Negative); Hyaline Casts,Urine 1 /lpf (0-2); Ketones,Urine Negative (Negative); Leukocyte Esterase,Urine Small (Negative); Mucus,Urine Rare /hpf; Nitrite,Urine Negative (Negative); Protein,Urine Negative (Negative); RBC,Urine 2 /hpf (0-5); Specific Gravity,Urine 1.023 (1.001-1.035); Squamous Epithelial Cell,Urine <1 /hpf (0-4); Urobilinogen,Urine <2.0 mg/dL (<2.0); WBC,Urine 12 /hpf (0-5)
[2020-02-18] MEDS ORDERED: ZIPRASIDONE 20 MG VIAL IM PRN (02:24)
[2020-02-18] MEDS ORDERED: MAGNESIUM HYDROXIDE 2,400 MG/10 ML CUP PO PRN (02:24)
[2020-02-18] MEDS: ACETAMINOPHEN TAB 325 MG TAB PO PRN (06:28)
[2020-02-18 07:22] LABS: Basophils % (A) 1 %; Eosinophils # (A) 0.2 k/uL (0-0.7); Eosinophils % (A) 3 %; HCT 45.3 % (34.0-46.0); HGB 14.9 gm/dL (11.4-16.0); Lymphocytes # (A) 1.2 k/uL (1.0-4.8); Lymphocytes % (A) 15 %; MCH 30.2 pg (25.0-35.0); MCHC 32.8 g/dL (31.0-37.0); MCV 92.1 fL (80.0-100.0); Mean Platelet Volume 8.1; Monocytes # (A) 0.6 k/uL (0-1.0); Monocytes % (A) 8 %; Neutrophils # (A) 5.5 k/uL (1.3-7.7); Neutrophils % (A) 71 %; Platelet Count 228 k/uL (150-450); RBC 4.92 m/uL (3.80-5.40); RDW 13.6 % (11.5-15.5); WBC 7.7 k/uL (3.8-10.6)
[2020-02-18 07:31] LABS: ALT 14 U/L (4-34); AST 28 U/L (14-36); African American GFR (CKD) >90 (>60 ml/min/1.73 sqM); Albumin 4.5 g/dL (3.5-5.0); Alkaline Phosphatase 63 U/L (38-126); Anion Gap 9 mmol/L; Bilirubin,Unconjugated 0.8 mg/dL (0.0-1.1); Blood Urea Nitrogen 18 mg/dL (7-17); Calcium 9.7 mg/dL (8.4-10.2); Carbon Dioxide 22 mmol/L (22-30); Chloride 108 mmol/L (98-107); Cholesterol 202 mg/dL (<200); Glucose 82 mg/dL (74-99); HDL Cholesterol 82 mg/dL (40-60); LDL Cholesterol,Calculated 102 mg/dL (0-99); Non-African American GFR(CKD) >90 (>60 ml/min/1.73 sqM); Potassium 4.5 mmol/L (3.5-5.1); Sodium 139 mmol/L (137-145); Total Bilirubin 0.7 mg/dL (0.2-1.3); Total Protein 7.1 g/dL (6.3-8.2); Triglycerides 89 mg/dL (<150)
[2020-02-18] MEDS: FLUTICASONE 50MCG/SPRAY NASAL 16GM EA NOSTRIL SCH (09:56)
[2020-02-18] MEDS: METOPROLOL SUCCINATE (ER) 25 MG TAB.ER.24H PO SCH (09:56)
[2020-02-18] MEDS: ASPIRIN 81 MG PO SCH (09:58)
[2020-02-18 14:20] LABS: Hemoglobin A1C 5.7 % (4.0-6.0)
--- NOTE | 2020-02-18 14:41 | P.HP ---
Psychiatric H&P - . H&P Date: 02/18/20 History & Physical: IDENTIFYING DATA: The patient is single 69-year-old female admitted voluntarily to the psychiatric unit. HISTORY OF PRESENT ILLNESS: [facility] with the complaint of visual hallucinations that have been present intermittently over the last "couple weeks" She describes several experiences where she saw "people" and her house. She talked about "strangers" walking into her house and sit at her kitchen table or on her couch in the living room. These people would not speak to her. She also talked about them suddenly "disappearing." She is distressed by this experience because he understands that is not normal. She attributes these visual experiences to the aftereffects of anesthesia. She talked about having a heart valve replacement last year. She denied other symptoms of psychosis including auditory, tactile or olfactory hallucinations. She denied experiencing ideas reference, thought insertion, thought broadcasting or thought control. She did not express paranoid thoughts or paranoid police. She is anxious about these experiences but she denied persistent, severe and uncontrolled anxiety. She denied panic attacks, obsessions or compulsions. She denied feeling persistently depressed or having thoughts of or suicide. She does not drink alcohol and denied use of drugs to get high, help her sleep or change her mood. PAST PSYCHIATRIC HISTORY: She denied a history of psychiatric treatment or psychiatric hospitalizations PAST MEDICAL HISTORY: Shingles, joint replacement ALLERGIES: Penicillin SUBSTANCE USE HISTORY: She denied history of substance abuse problems FAMILY PSYCHIATRIC/SUBSTANCE USE HISTORY:. She did not have family history of psychiatric or substance use LEGAL HISTORY: Denied SOCIAL HISTORY: She reported recent intact family. She was an only child. She is single and has no children. 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 She lives alone in an apartment in [place]. MENTAL STATUS EXAM: She presented as a casually groomed short elderly female with close cropped hair and glasses. She made eye contact and attended to the interview. She had no distinction features. She had scoliosis. She had a anxious facial expression. She was alert and oriented to person, place and time. She showed no abnormality of psychomotor activity. She had no abnormal movements. Her speech was spontaneous with normal rate, rhythm and volume. Her affect was anxious but stable and appropriate. She denied suicidal ideation and wishes. She denied homicidal ideation. She denied feeling hopeless, helpless or worthless. She ruminated about her hallucinatory experiences but did not express ideas reference, paranoid ideation or delusions. Her thinking was concrete. Associations were coherent, logical and goal directed. She had difficulty with memory and word finding. She described visual hallucinations but did not describe depersonalization or derealization. Global impression of intellect is average to above. She has insight or understanding of her illness and need for treatment. [facility] completed the [facility]. Her total score was 19/30; a score of less than 26 is consistent with cognitive impairment. She had impairment with visual spatial executive functioning, naming and delayed recall. Specifically, he could not perform alternating trails were copied a cube. She did not accurately the name the images of animals. She is unable to remember any of the memory words. She was oriented to date, month, year, day and city but did not know the name of the hospital. STRENGTHS: Able income, stable housing, relatively good health WEAKNESSES: Cognitive impairment, lack of psychosocial support IMPRESSION: She is a 61-year-old single female with no history of psychiatric illness or substance use problems. She presented with recent onset of visual hallucinations involving well formed perceptions of people. She denied experiencing other symptoms of psychosis as well as symptoms suggestive of major mood or anxiety disorder. Her performance on formal mental status testing is consistent with a major neurocognitive disorder. PRINCIPLE DIAGNOSIS: Unspecified neurocognitive disorder, rule out major neurocognitive disorder due to Alzheimer's disease, with Lewy bodies, vascular neurocognitive disorder or neurocognitive disorder due to multiple medical conditions. RECOMMENDATION: Admit to the psychiatric unit. Safety precautions. Consult medicine for initial physical exam and medical history. cardroom worker completed initial psychosocial assessment and coordinate discharge and aftercare. We discussed treatment options and she agreed to a trial of Namenda. Encourage participation in therapeutic groups and activities. Evaluate clinical status response to treatment daily basis. Allergies Allergy/AdvReac Type Severity Reaction Status Date / Time Penicillins Allergy Unknown Verified 02/17/20 21:07 Vital Signs Temp 97.8 F 02/18/20 01:00 Pulse 84 02/18/20 09:59 Resp 16 02/18/20 09:59 BP 112/78 02/18/20 09:59 Pulse Ox 98 02/17/20 23:52 Intake & Output 02/17/20 02/18/2020 18:59 06:59 18:59 Weight 51.71 kg 50.802 kg Laboratory Last Values WBC 7.7 k/uL (3.8-10.6) 02/18/20 06:42 RBC 4.92 m/uL (3.80-5.40) 02/18/20 06:42 Hgb 14.9 gm/dL (11.4-16.0) 02/18/20 06:42 Hct 45.3 % (34.0-46.0) 02/18/20 06:42 MCV 92.1 fL (80.0-100.0) 02/18/20 06:42 MCH 30.2 pg (25.0-35.0) 02/18/20 06:42 MCHC 32.8 g/dL (31.0-37.0) 02/18/20 06:42 RDW 13.6 % (11.5-15.5) 02/18/20 06:42 Plt Count 228 k/uL (150-450) 02/18/20 06:42 Neutrophils % 71 % 02/18/20 06:42 Lymphocytes % 15 % 02/18/20 06:42 Monocytes % 8 % 02/18/20 06:42 Eosinophils % 3 % 02/18/20 06:42 Basophils % 1 % 02/18/20 06:42 Neutrophils # 5.5 k/uL (1.3-7.7) 02/18/20 06:42 Lymphocytes # 1.2 k/uL (1.0-4.8) 02/18/20 06:42 Monocytes # 0.6 k/uL (0-1.0) 02/18/20 06:42 Eosinophils # 0.2 k/uL (0-0.7) 02/18/20 06:42 Basophils # 0.0 k/uL (0-0.2) 02/18/20 06:42 Sodium 139 mmol/L (137-145) 02/18/20 06:42 Potassium 4.5 mmol/L (3.5-5.1) 02/18/20 06:42 Chloride 108 mmol/L (98-107) H 02/18/20 06:42 Carbon Dioxide 22 mmol/L (22-30) 02/18/20 06:42 Anion Gap 9 mmol/L 02/18/20 06:42 BUN 18 mg/dL (7-17) H 02/18/20 06:42 Creatinine 0.67 mg/dL (0.52-1.04) 02/18/20 06:42 Est GFR (CKD-EPI)AfAm >90 (>60 ml/min/1.73 sqM) 02/18/20 06:42 Est GFR (CKD-EPI)NonAf >90 (>60 ml/min/1.73 sqM) 02/18/20 06:42 Glucose 82 mg/dL (74-99) 02/18/20 06:42 Calcium 9.7 mg/dL (8.4-10.2) 02/18/20 06:42 Total Bilirubin 0.7 mg/dL (0.2-1.3) 02/18/20 06:42 Conjugated Bilirubin 0.0 mg/dL (0.0-0.3) 02/18/20 06:42 Unconjugated Bilirubin 0.8 mg/dL (0.0-1.1) 02/18/20 06:42 Delta Bilirubin 0.0 mg/dL (0.0-0.2) 02/18/20 06:42 AST 28 U/L (14-36) 02/18/20 06:42 ALT 14 U/L (4-34) 02/18/20 06:42 Alkaline Phosphatase 63 U/L (38-126) 02/18/20 06:42 Total Protein 7.1 g/dL (6.3-8.2) 02/18/20 06:42 Albumin 4.5 g/dL (3.5-5.0) 02/18/20 06:42 Triglycerides 89 mg/dL (<150) 02/18/20 06:42 Cholesterol 202 mg/dL (<200) H 02/18/20 06:42 LDL Cholesterol, Calc 102 mg/dL (0-99) H 02/18/20 06:42 HDL Cholesterol 82 mg/dL (40-60) H 02/18/20 06:42 TSH 2.740 mIU/L (0.465-4.680) 02/18/20 06:42 Urine Color Yellow 02/17/20 19:35 Urine Appearance Clear (Clear) 02/17/20 19:35 Urine pH 5.0 (5.0-8.0) 02/17/20 19:35 Ur Specific [place] 1.023 (1.001-1.035) 02/17/20 19:35 Urine Protein Negative (Negative) 02/17/20 19:35 Urine Glucose (UA) Negative (Negative) 02/17/20 19:35 Urine Ketones Negative (Negative) 02/17/20 19:35 Urine Blood Trace (Negative) H 02/17/20 19:35 Urine Nitrite Negative (Negative) 02/17/20 19:35 Urine Bilirubin Negative (Negative) 02/17/20 19:35 Urine Urobilinogen <2.0 mg/dL (<2.0) 02/17/20 19:35 Ur Leukocyte Esterase Small (Negative) H 02/17/20 19:35 Urine RBC 2 /hpf (0-5) 02/17/20 19:35 Urine WBC 12 /hpf (0-5) H 02/17/20 19:35 Ur Squamous Epith Cells <1 /hpf (0-4) 02/17/20 19:35 Hyaline Casts 1 /lpf (0-2) 02/17/20 19:35 Urine Mucus Rare /hpf (None) H 02/17/20 19:35 02/18/20 12:55 02/18/20 14:40
--- NOTE | 2020-02-19 03:06 | P.CONS ---
History of Present Illness - Reason for Consult Consult date: 02/19/20 - History of Present Illness Patient is a 69-year-old female with a PMH of osteoporosis and shingles presented to the ED with complaints of visual hallucinations ongoing for the past several weeks. She was voluntarily admitted to the mental health unit where she was seen and evaluated. She was in good spirits and denied any active complaints. She denied chest pain, shortness of breath, fever, chills, abdominal pain, nausea, or vomiting. She underwent an extensive evaluation in the emergency room with WBC count 7.7, hemoglobin 14.9, platelets 228, sodium 139, potassium 4.5, chloride 108, BUN 18, creatinine 0.67. Review of Systems Pertinent positives and negatives as discussed in HPI, a complete review of systems was performed and all other systems are negative. Past Medical History Past Medical History: No Reported History Additional Past Medical History / Comment(s): Shingles 10/2016 History of Any Multi-Drug Resistant Organisms: None Reported Past Surgical History: Joint Replacement Additional Past Surgical History / Comment(s): Left hip replacement. Smoking Status: Never smoker Medications and Allergies Home Medications Medication Instructions Recorded Confirmed Type Alendronate Sodium [Fosamax] 70 mg PO WE 02/16/20 02/17/20 History Ergocalciferol [Vitamin D2 50,000 unit PO HULL 02/16/20 02/17/20 History (DRISDOL)] Fluticasone Propionate 1 spray EA NOSTRIL DAILY 02/16/20 02/17/20 History Metoprolol Succinate [Toprol XL] 25 mg PO DAILY 02/16/20 02/17/20 History Aspirin EC [Ecotrin Low Dose] 81 mg PO DAILY 02/17/20 02/17/20 History Allergies Allergy/AdvReac Type Severity Reaction Status Date / Time Penicillins Allergy Unknown Verified 02/17/20 21:07 Physical Exam Vitals: Vital Signs Temp Pulse Resp BP 02/18/20 22:30 98.5 F 02/18/20 18:54 98.5 F 02/18/20 13:30 98.9 F 02/18/20 09:59 84 16 112/78 General: non toxic, no distress, appears at stated age, normal weight Derm: no unusual rashes/lesions no unusual ecchymoses, warm, dry Head: atraumatic, normocephalic, symmetric Eyes: EOMI, no lid lag, anicteric sclera, pupils equal round reactive to light ENT: Nose and ears atraumatic, no thrush, no pharyngeal erythema Neck: No thyromegaly, no cervical lymphadenopathy, trachea midline, supple Mouth: no lip lesion, mucus membranes moist Cardiovascular: S1S2 reg, no murmur, positive posterior tibial pulse bilateral, no edema, capillary refill less than 2 seconds Lungs: CTA bilateral, no rhonchi, no rales , no accessory muscle use Abdominal: soft, nontender to palpation, no guarding, no appreciable organomegaly, normal bowel sounds Ext: no gross muscle atrophy, muscle strength 5 out of 5 in all 4 extremities grossly, no contractures, Neuro: CN II-XI grossly intact, light touch intact all 4 extremities, finger to nose within normal limits, Psych: Alert, oriented, appropriate affect Results CBC & Chem 7: 02/18/20 06:42 02/18/20 06:42 Labs: Abnormal Lab Results - Last 24 Hours (Table) 02/18/20 Range/Units 06:42 Chloride 108 H (98-107) mmol/L BUN 18 H (7-17) mg/dL Cholesterol 202 H (<200) mg/dL LDL Cholesterol, Calc 102 H (0-99) mg/dL HDL Cholesterol 82 H (40-60) mg/dL Microbiology - Last 24 Hours (Table) 02/17/20 19:35 Urine Culture - Final Urine,Voided Assessment and Plan Plan: Abnormal UA, likely asymptomatic bacteriuria -Patient denied urinary complaints or abdominal pain Osteoporosis -Continue home meds Hallucinations -As per psychiatry Thank you for allowing us to participate in the care of this patient. We will follow peripherally. Do not hesitate to contact us with questions. Someone can be reached from the [facility] hospitalist group at all hours of the day at [phone].
[2020-02-19] MEDS: MAG HYDROX/AL HYDROX/SIMETH 30 ML CUP PO PRN ×2 (06:07→17:19)
[2020-02-19] MEDS: ASPIRIN 81 MG PO SCH (07:58)
[2020-02-19] MEDS: MEMANTINE 5 MG TAB PO SCH (07:58)
[2020-02-19] MEDS: FLUTICASONE 50MCG/SPRAY NASAL 16GM EA NOSTRIL SCH (07:58)
[2020-02-19] MEDS: METOPROLOL SUCCINATE (ER) 25 MG TAB.ER.24H PO SCH (07:59)
[2020-02-19 08:02] VITALS: RESP 16
[2020-02-19 14:55] LABS: T4, Free (Free Thyroxine) 1.7 ng/dL (0.78-2.19)
--- NOTE | 2020-02-19 15:16 | P.PN ---
Progress Note - Text Progress Note Date: 02/19/20 Clinical Problems: Unspecified neurocognitive disorder, rule out major neurocognitive disorder due to Alzheimer's disease, with Lewy bodies, vascular neurocognitive disorder or neurocognitive disorder due to multiple medical conditions. Interim history: I reviewed the medical record and interviewed the patient. Her only concern was going home. We again talked about my diagnostic impression and I attempted to explain as sensitively as I could that I suspect that she has a major neurocognitive disorder or what he sometimes called a "dementia". I explained that in terms related to her recognized difficulties with word finding and memory. She denied that she has experienced "visions" (visual hallucinations) since her admission and while she has been on this unit. She took the first dose of Namenda this morning and denied adverse effects. I also reviewed the computed tomography scan completed on 02/16/2020. Although was read as normal by the radiologist she didn't appear to have enlarged ventricles and increased atrophy particularly in the cerebellum. Mental status exam: She presented as a small, thin and frail-appearing elderly woman with scoliosis. She made eye contact and attended to interview. She showed no abnormality of psychomotor activity. Speech was spontaneous with normal rate and rhythm. She had intermittent word finding difficulties and word errors. Her affect was blunted but stable and appropriate. She denied suicidal ideation or wishes. She denied feeling hopeless, helpless or worthless. She denied visual hallucinations and did not appear to responding to internal stimuli. Assessment: She has signs and symptoms of major neurocognitive disorder and evidence from the computed tomography scan of atrophy. She benefit from a neurology consult and evaluation. Plan: Continue inpatient pending the neurology evaluation. Continue safety pr ecautions. Continue Namenda 5 mg daily and titrated according to clinical response and tolerance. Continue other medications as recommended by the insolvency consultant hospitalist. Evaluate clinical status response to treatment daily basis.
--- NOTE | 2020-02-19 17:07 | P.CNNES ---
History of Present Illness Consult date: 02/19/20 Reason for Consult: mental status change Chief complaint: visual hallucinations History of Present Illness: The patient is a 69-year-old female who is seen in neurologic consultation on February 19, 2020, via teleneurology. She presented to the emergency department, with her friend who brought her in because of visual hallucinations. The patient is able to tell me that she has been experiencing these hallucina tions for approximately 3-4 weeks. She does not refer to them as hallucinations area she says she has been seeing people in her house. She says they are walking around her house. When she initially saw them she was afraid they would harm her. She says these people do not come into her house every day. She denies actual interaction with these people. They have not touched her. They have not spoken to her. The patient denies a history of similar events. The patient denies tactile and auditory hallucinations. In regards to her memory, the patient has noted difficulty for proximally one year. She feels as if her thinking has slowed down. She has difficulty describing it for me. She denies forgetting to turn off the stove, the water, forgetting to take her medications and locking the doors. The patient continues to drive. She denies getting lost in her own neighborhood. The patient does report occasional difficulty with word finding. She denies difficulties with balance. She denies visual changes and headache. She denies weakness, paresthesias and falls. Patient denies difficulty sleeping. Past Medical History Past Medical History: No Reported History Additional Past Medical History / Comment(s): Nas 10/2016 History of Any Multi-Drug Resistant Organisms: None Reported Past Surgical History: Joint Replacement Additional Past Surgical History / Comment(s): Left hip replacement. Smoking Status: Never smoker Medications and Allergies Home Medications Medication Instructions Recorded Confirmed Type Alendronate Sodium [Fosamax] 70 mg PO WE 02/16/20 02/17/20 History Ergocalciferol [Vitamin D2 50,000 unit PO HULL 02/16/20 02/17/20 History (DRISDOL)] Fluticasone Propionate 1 spray EA NOSTRIL DAILY 02/16/20 02/17/20 History Metoprolol Succinate [Toprol XL] 25 mg PO DAILY 02/16/20 02/17/20 History Aspirin EC [Ecotrin Low Dose] 81 mg PO DAILY 02/17/20 02/17/20 History Allergies Allergy/AdvReac Type Severity Reaction Status Date / Time Penicillins Allergy Unknown Verified 02/17/20 21:07 Physical Examination - Vital Signs Vital Signs: Vital Signs Temp Pulse Resp BP Pulse Ox 02/19/20 12:49 98.6 F 02/19/20 08:01 85 16 119/69 02/19/20 05:58 98.8 F 92 18 104/58 98 02/18/20 22:30 98.5 F 02/18/20 18:54 98.5 F Gen.: The patient is well-nourished, well-developed and in no acute distress. She is dressed in her street clothes. HEENT: Head is atraumatic, normocephalic. Fundus not visualized. There is no scleral icterus. Mucous membranes are moist. Heart: Regular rate and rhythm Lungs: Clear to auscultation Extremities: Without edema Neurological examination Mental status: The patient is awake, alert and oriented to her name, date of , age, current year, month, and Pres. She incorrectly states that the day of the week as "Friday" when it is actually Friday. There is registration of 3/3 objects. There is recall of 1/3 objects after 5 minutes and distraction. T he patient is able to accurately spell "world" forward and backward. The patient accurately perform his serial threes from 20 until getting to 8, when she then subtracts 1 and states that she thinks she is done. There is no a anomia, or right left confusion. The patient is oriented to the state she is in. She is not oriented to her current location, city or County. The patient is able to tell me her home address. The patient is able to accurately repeat phrases. When drawing the face of a clock, the patient initially draws a small [place] and attempts to place the numbers inside the [place]. She makes a second attempt and draws the [place] larger. She places all of the numbers on the c lock, however they are not all in the correct position and are not accurately spaced. When attempting to place the hands on the clock to show the time of 1:45, she places one hand pointing to the #4 and the other hand pointing to the #5. The patient is able to accurately write a sentence. Cranial nerves: Pupils are equal, round and reactive to light. Visual kendall are full to confrontation. Extraocular movements are intact. There is no nystagmus. Facial sensation is intact. There is no facial asymmetry. Hearing is grossly intact. Uvula and palate are midline. Shoulder shrug is symmetric. Tongue protrudes midline. Motor: Strength is 5/5 throughout Sensation: Grossly intact to light touch Coordination: Finger to nose testing and rapid alternating movements are intact Deep tendon reflexes: 2+/4+ throughout Results - Laboratory Findings CBC and BMP: 02/18/20 06:42 02/18/20 06:42 Abnormal Lab Findings: Abnormal Labs 02/17/20 02/18/20 19:35 06:42 Chloride 108 H BUN 18 H Cholesterol 202 H LDL Cholesterol, Calc 102 H HDL Cholesterol 82 H Urine Blood Trace H Ur Leukocyte Esterase Small H Urine WBC 12 H Urine Mucus Rare H - Diagnostic Findings Additional findings: CT scan of the brain images are reviewed. There does appear to be some cerebellar atrophy. Ventricles are not enlarged Assessment and Plan Assessment: 1. Mental status changes, consisting of visual hallucinations 2-3 weeks and memory problems 1 year Abnormal Mini-Mental Status exam 2. Abnormal urinalysis Plan: 1. Check labs for metabolic etiology of memory problems-TSH, vitamin B12 level, VDRL, 2. MRI of brain Time with Patient: Greater than 30 (spent 45 minutes with patient via teleneurology)
[2020-02-20] MEDS: ASPIRIN 81 MG PO SCH (08:50)
[2020-02-20] MEDS: FLUTICASONE 50MCG/SPRAY NASAL 16GM EA NOSTRIL SCH (08:51)
[2020-02-20] MEDS: MEMANTINE 5 MG TAB PO SCH (08:51)
[2020-02-20] MEDS ORDERED: ERGOCALCIFEROL 50,000 UNIT CAP PO SCH (09:00)
--- NOTE | 2020-02-20 10:31 | P.PN ---
Progress Note - Text Progress Note Date: 02/20/20 Clinical Problems: Unspecified neurocognitive disorder with behavioral changes, rule out major neurocognitive disorder due to Alzheimer's disease, with Lewy bodies, vascular neurocognitive disorder or neurocognitive disorder due to multiple medical conditions. Interim history: I reviewed the medical record and interviewed the patient. She reported recurrence of visual hallucinations or "illusions" last night. She talked about a group of people in the hallway outside his room practicing for what she thought was a play or a musical. She also talked about seeing people walking back and forth across her window last night. She recognizes that these experiences are unusual but is not overtly distressed, frightened or scared. She denied side effects to the initial dose of Namenda. Neurology consult appreciated. TSH normal, vitamin B12 pending. The neurologist also ordered a MRI of the brain. Mental status exam: She presented as a Frail appearing elderly woman who was pleasant on approach. She made eye contact and attended the interview. She was anxious but not restless or agitated. Her speech was spontaneous and she had difficulty with word finding. Her affect was anxious but appropriate. She denied suicidal ideation, or homicidal ideation. Her she did not feel hopeless, helpless or worthless. She did not express ideas reference, paranoid ideation or delusions. Her thinking was concrete but her associations were coherent and logical. She denied current auditory of visual or olfactory hallucinations did not appear to be responding to internal stimuli. Assessment: She continues to have intermittent visual hallucinations. She is on the initial dose of Namenda. I'm reluctant to start an antipsychotic because she has not had an adequate trial of memory enhancing agents. Plan: Continue inpatient treatment. Continue safety precautions. Continue Na menda 5 mg daily and titrate according to clinical response and tolerance. Begin Aricept 5 mg at bedtime and titrated according to clinical response and tolerance. MRI of the brain pending. suction worker to coordinate discharge and aftercare services. Evaluate clinical status response to treatment daily basis.
[2020-02-20] MEDS: METOPROLOL SUCCINATE (ER) 25 MG TAB.ER.24H PO SCH (10:40)
[2020-02-20] MEDS ORDERED: LOPERAMIDE 2 MG CAP PO STA (13:57)
[2020-02-20] MEDS ORDERED: LOPERAMIDE 2 MG CAP PO PRN (13:57)
[2020-02-20] MEDS: DONEPEZIL 5 MG TAB PO SCH (20:59)
[2020-02-21] MEDS: FLUTICASONE 50MCG/SPRAY NASAL 16GM EA NOSTRIL SCH (08:49)
[2020-02-21] MEDS: MEMANTINE 5 MG TAB PO SCH (08:49)
[2020-02-21] MEDS: METOPROLOL SUCCINATE (ER) 25 MG TAB.ER.24H PO SCH (08:49)
[2020-02-21] MEDS: ASPIRIN 81 MG PO SCH (08:49)
--- NOTE | 2020-02-21 11:34 | P.PN ---
Progress Note - Text Progress Note Date: 02/21/20 Clinical Problems: Unspecified neurocognitive disorder with behavioral changes, rule out major neurocognitive disorder due to Alzheimer's disease, with Lewy bodies, vascular neurocognitive disorder or neurocognitive disorder due to multiple medical conditions. Interim history: I reviewed the medical record and interviewed the patient. She thought she saw him "little people" last night but when she went to investigate a disappeared. She had experience was not as well formed or persistent as well as occurred on Friday morning. She denied side effects to initial dose of either Aricept or Namenda. We had planned on discharge day but the MRI is scheduled for tomorrow. After discussion with the treatment team thought was best to postpone the discharge until she completes the MRI and MRA is reviewed by the neurologist. Mental status exam: She presented as a frail appearing elderly woman who was pleasant on approach. She made eye contact and attended the interview. She was anxious but not restless or agitated. Her speech was spontaneous and she had difficulty with word finding. Her affect was anxious but appropriate. She denied suicidal ideation, or homicidal ideation. Her she did not feel hopeless, helpless or worthless. She did not express ideas reference, paranoid ideation or delusions. Her thinking was concrete but her associations were coherent and logical. She denied current auditory of visual or olfactory hallucinations did not appear to be responding to internal stimuli. Assessment: The visual hallucinations may be diminishing. I'm reluctant to start an antipsychotic because she has not had an adequate trial of memory enhancing agents. Plan: Continue inpatient treatment. Continue safety precautions. Continue Namenda 5 mg daily and Aricept 5 mg and titrate according to clinical response and tolerance. Discharge tomorrow after the MRI and reviewed with MRI by the neurologist. dialysis social worker to coordinate discharge and aftercare services. Evaluate clinical status response to treatment daily basis.
[2020-02-21] MEDS: ACETAMINOPHEN TAB 325 MG TAB PO PRN (16:13)
[2020-02-21] MEDS: DONEPEZIL 5 MG TAB PO SCH (19:48)
[2020-02-22] MEDS ORDERED: LORazepam 1 MG TAB PO PRN (08:32)
[2020-02-22] MEDS: ASPIRIN 81 MG PO SCH (08:35)
[2020-02-22] MEDS: FLUTICASONE 50MCG/SPRAY NASAL 16GM EA NOSTRIL SCH (08:35)
[2020-02-22] MEDS: MEMANTINE 5 MG TAB PO SCH (08:37)
[2020-02-22] MEDS: METOPROLOL SUCCINATE (ER) 25 MG TAB.ER.24H PO SCH (10:53)
[2020-02-22 10:55] VITALS: BP 133/88; PULSE 86
--- NOTE | 2020-02-22 11:45 | P.DS ---
Providers Date of admission: 02/17/20 23:19 Attending physician: Manuel Vaughan MD Consults: 02/18/20 02:24 Consult Physician Routine Consulting Provider: Katy Collins Consult Reason/Comments: H & P and medical management Do you want consulting provider notified?: Already Contacted 02/19/20 08:54 Consult Physician Routine Consulting Provider: Elisabeth Briceño Consult Reason/Comments: new dementia. CT read normal but apparent cerebellar degeneration Do you want consulting provider notified?: Yes Primary care physician: Joby Allen Bacheldor - Discharge Diagnosis(es) (1) Major neurocognitive disorder due to Alzheimer's disease, possible Current Visit: Yes Status: Chronic Priority: Medium (2) Hallucinations Current Visit: Yes Status: Acute Priority: Medium Hospital Course: he patient is single 69-year-old female admitted voluntarily to the psychiatric unit. [facility] with the complaint of visual hallucinations that have been present intermittently over the last "couple weeks" She describes several experiences where she saw "people" and her house. She talked about "strangers" walking into her house and sit at her kitchen table or on her couch in the living room. These people would not speak to her. She also talked about them suddenly "disappearing." She is distressed by this experience because he understands that is not normal. She attributes these visual experiences to the aftereffects of anesthesia. She talked about having a heart valve replacement last year. She denied other symptoms of psychosis including auditory, tactile or olfactory hallucinations. She denied experiencing ideas reference, thought insertion, thought broadcasting or thought control. She did not express paranoid thoughts or paranoid police. She is anxious about these experiences but she denied persistent, severe and uncontrolled anxiety. She denied panic attacks, obsessions or compulsions. She denied feeling persistently depressed or having thoughts of or suicide. She does not drink alcohol and denied use of drugs to get high, help her sleep or change her mood. We completed the [place] Cognitive Assessment. Her total score was 19/30; a score of less than 26 is consistent with cognitive impairment. She had impairment with visual spatial executive functioning, naming and delayed recall. Specifically, he could not perform alternating trails were copied a cube. She did not accurately the name the images of animals. She is unable to remember any of the memory words. She was oriented to date, month, year, day and city bu t did not know the name of the hospital. We admitted her voluntarily to the psychiatric unit under care of this investment underwriter. Provided a competence a biopsychosocial assessment. The customer support consultant Hospital was completed initial physical exam and medical history and diagnosed osteoporosis and an abnormal UA likely asymptomatic bacteremia. The hospitalist did not recommend specific treatments. We resumed her outpatient medications including aspirin 81 mg per day, vitamin D to 50,000 units once per week, Flonase daily, Toprol-XL 25 mg daily and Fosamax 70 mg by mouth once weekly. And on contrasted computed tomography scan of the brain from 02/16/2020 showed no signs of intracranial hemorrhage, mass effect or midline shift. The consultants neurology for evaluation of new onset dementia. Neurologist recommended TSH, B12 the and VDRL as well as MRI of the brain. His laboratory tests were normal. The MRI will need to be completed as an outpatient. We started the Namenda 5 mg daily and Aricept 5 mg at bedtime with treatment of memory impairment in perceptual disturbances. During the first few nights hospitalization she reported experiencing the visual hallucinations. Some of these experiences were well formed. However after starting Namenda and Aricept she reported an absence of these visual hallucinations. The time of discharge she presented as a casually groomed short elderly woman who was pleasant on approach. She made eye contact and attended the interview. She had marked scoliosis but no distinguishing features she had a blunted but bright facial expression. She showed slight psychomotor retardation but no abnormal movements or speech was spontaneous with normal rate, rhythm and volume. She had word finding difficulties. Her affect was blunted but stable and appropriate. She denied suicidal ideation or wishes. She denied homicidal ideation. She denied feeling hopeless, helpless or worthless. She did not express ideas reference, paranoid ideation or delusions. Her thinking was abstract and associations were coherent and logical. She denied hallucinations and did not appear to be responding to internal stimuli. Patient Condition at Discharge: Good Plan - Discharge Summary New Discharge Prescriptions: New Donepezil [Aricept] 5 mg PO HS #30 tab Memantine [Namenda] 5 mg PO DAILY #30 tab Continue Metoprolol Succinate [Toprol XL] 25 mg PO DAILY Fluticasone Propionate 1 spray EA NOSTRIL DAILY Ergocalciferol [Vitamin D2 (DRISDOL)] 50,000 unit PO HULL Alendronate Sodium [Fosamax] 70 mg PO WE Aspirin EC [Ecotrin Low Dose] 81 mg PO DAILY Discharge Medication List Alendronate Sodium [Fosamax] 70 mg PO WE 02/16/20 [History] Ergocalciferol [Vitamin D2 (DRISDOL)] 50,000 unit PO UHLL 02/16/20 [History] Fluticasone Propionate 1 spray EA NOSTRIL DAILY 02/16/20 [History] Metoprolol Succinate [Toprol XL] 25 mg PO DAILY 02/16/20 [History] Aspirin EC [Ecotrin Low Dose] 81 mg PO DAILY 02/17/20 [History] Donepezil [Aricept] 5 mg PO HS #30 tab 02/21/20 [Rx] Memantine [Namenda] 5 mg PO DAILY #30 tab 02/21/20 [Rx] Follow up Appointment(s)/Referral(s): Niharika Garza [facility] [Outside] - 02/24/20 10:30 am (Bhumika Remy) Joby Loredo DO [Primary Care Provider] - 1-2 days Discharge Disposition: HOME SELF-CARE
[2020-02-22 16:46] VITALS: TEMP 97.8
[2020-02-23] MEDS ORDERED: NON FORMULARY DRUG (Alendronate Sodium [Fosamax] 70 MG) PO SCH (09:00)
== END 2020-02-22 17:17 | disposition home or self-care (01) | DRG 57 ==
LOC: EC 17:49 → 3MHU 23:19
PROVIDERS: ADMIT Psychiatry & Neurology Psychiatry; ATTEND Psychiatry & Neurology Psychiatry
DX: G30.9 Alzheimer's disease, unspecified (principal); F23 Brief psychotic disorder; F02.80 Dementia in other diseases classified elsewhere, unspecified severity, without behavioral disturbance, psychotic disturbance, mood disturbance, and anxiety; M41.9 Scoliosis, unspecified; M81.0 Age-related osteoporosis without current pathological fracture; Z79.82 Long term (current) use of aspirin; Z79.83 Long term (current) use of bisphosphonates; Z79.899 Other long term (current) drug therapy; Z96.642 Presence of left artificial hip joint; Z88.0 Allergy status to penicillin
CPT/HCPCS: 80053; 80061; 81001; 82075; 82140; 82248; 82607; 83036; 84439; 84443; 85025; 87086; 99285

== ENCOUNTER 2020-10-21 07:21 | Emergency (ER) | payer MEDICARE ==
[2020-10-21 07:38] VITALS: TEMP 98.4
--- NOTE | 2020-10-21 08:02 | ED ---
General Adult HPI - General Chief complaint: Altered Mental Status Stated complaint: Very confused/poss uti Source: patient Mode of arrival: ambulatory Limitations: no limitations - History of Present Illness Initial comments: Susanna is a pleasant 70-year-old female who is brought in by private vehicle this morning for evaluation of confusion and concern that she has a urinary tract infection. Patient reports that for the past week she's had some lower urinary tract symptoms, S urine that she reports is darker than usual and cloudy. This morning she got confused and walked to a local gas station looking for her vehicle that was apparently parked in her garage. EMS was called the patient was able to contact a friend who agreed to bring her to the hospital for further evaluation. Patient denies any fevers chills nausea or vomiting she reports she's been eating and drinking well. She denies any injuries headaches or other symptoms. Per the patient's medical record she was admitted in January 2020 for confusion related to UTI and there was concern she had dementia, she was previously prescribed aricept and namenda but denies taking them at this time. - Related Data Home Medications Medication Instructions Recorded Confirmed Alendronate Sodium [Fosamax] 70 mg PO WE 02/16/20 10/21/20 Ergocalciferol [Vitamin D2 50,000 unit PO HULL 02/16/20 10/21/20 (DRISDOL)] Metoprolol Succinate [Toprol XL] 25 mg PO DAILY 02/16/20 10/21/20 Aspirin EC [Ecotrin Low Dose] 81 mg PO DAILY 02/17/20 10/21/20 Previous Rx's Medication Instructions Recorded Donepezil [Aricept] 5 mg PO HS #30 tab 02/21/20 Memantine [Namenda] 5 mg PO DAILY #30 tab 02/21/20 Allergies Allergy/AdvReac Type Severity Reaction Status Date / Time Penicillins Allergy Unknown Verified 10/21/20 09:57 Review of Systems ROS Statement: Those systems with pertinent positive or pertinent negative responses have been documented in the HPI. ROS Other: All systems not noted in ROS Statement are negative. Past Medical History Past Medical History: Atrial Fibrillation Additional Past Medical History / Comment(s): [place]enn[place] 10/2016 History of Any Multi-Drug Resistant Organisms: None Reported Past Surgical History: Cardiac Valve Replacement, Joint Replacement Additional Past Surgical History / Comment(s): Left hip replacement. Past Psychological History: No Psychological Hx Reported Smoking Status: Never smoker Past Alcohol Use History: None Reported Past Drug Use History: None Reported General Exam - General Exam Comments Initial Comments: Physical Exam GENERAL: Patient is well-developed and well-nourished. Patient is nontoxic and well-hydrated and is in no distress. HENT: Normocephalic, Atraumatic. EYES: PERRL, EOMI PULMONARY: Unlabored respirations. CARDIOVASCULAR: RRR Warm and well perfused extremities ABDOMEN: Non-distended SKIN: No rashes or bruising : Deferred NEUROLOGIC: Alert and oriented to person place and month Normal speech Normal gait, ambulating independently throughout the department MUSCULOSKELETAL: Moving all extremities with no apparent injury Thoracic kyphosis PSYCHIATRIC: No SI/HI Limitations: no limitations Course Vital Signs 10/21/20 10/21/20 10/21/20 07:30 10:13 12:00 Temperature 98.4 F Pulse Rate 78 82 80 Respiratory 18 16 16 Rate Blood Pressure 146/88 140/88 144/80 O2 Sat by Pulse 95 100 100 Oximetry Medical Decision Making - Medical Decision Making Patient was seen and evaluated, history obtained from patient, friend at bedside and EMS Patient with some confusion this morning, concerned she has UTI as she has had similar symptoms in the past Per medical record patient has history of dementia but non-compliant with medications due to side effects UA with no signs of UTI Labs and CT with no significant abnormality, CT with chronic changes Patient remains awake, alert, oriented to person, place, month/year, president and reason for visit to ER She has been on the phone with multiple friends checking on her, patient has called a friend for a ride home. Patient feels comfortable being discharged at this time. This time there is no indication for admission patient remains awake alert and oriented and will be discharged home with planned follow-up with her primary care physician. Close return parameters or need to call 911 were discussed with the patient who expresses understanding. Patient was able to ambulate independently out of the emergency department. - Lab Data Result diagrams: 10/21/20 08:03 10/21/20 08:03 Lab Results 10/21/20 10/21/20 10/21/20 Range/Units 07:51 08:03 08:03 WBC 8.7 (3.8-10.6) k/uL RBC 5.19 (3.80-5.40) m/uL Hgb 15.8 (11.4-16.0) gm/dL Hct 47.0 H (34.0-46.0) % MCV 90.5 (80.0-100.0) fL MCH 30.4 (25.0-35.0) pg MCHC 33.6 (31.0-37.0) g/dL RDW 12.9 (11.5-15.5) % Plt Count 223 (150-450) k/uL MPV 7.6 Neutrophils % 78 % Lymphocytes % 11 % Monocytes % 8 % Eosinophils % 1 % Basophils % 1 % Neutrophils # 6.8 (1.3-7.7) k/uL Lymphocytes # 1.0 (1.0-4.8) k/uL Monocytes # 0.7 (0-1.0) k/uL Eosinophils # 0.1 (0-0.7) k/uL Basophils # 0.1 (0-0.2) k/uL Sodium 139 (137-145) mmol/L Potassium 4.3 (3.5-5.1) mmol/L Chloride 104 (98-107) mmol/L Carbon Dioxide 27 (22-30) mmol/L Anion Gap 8 mmol/L BUN 18 H (7-17) mg/dL Creatinine 0.67 (0.52-1.04) mg/dL Est GFR (CKD-EPI)AfAm >90 (>60 ml/min/1.73 sqM) Est GFR (CKD-EPI)NonAf >90 (>60 ml/min/1.73 sqM) Glucose 99 (74-99) mg/dL Calcium 9.9 (8.4-10.2) mg/dL Total Bilirubin 0.7 (0.2-1.3) mg/dL AST 29 (14-36) U/L ALT 15 (4-34) U/L Alkaline Phosphatase 61 (38-126) U/L Total Protein 8.0 (6.3-8.2) g/dL Albumin 5.0 (3.5-5.0) g/dL Urine Color Yellow Urine Appearance Clear (Clear) Urine pH 6.0 (5.0-8.0) Ur Specific [place] 1.013 (1.001-1.035) Urine Protein Negative (Negative) Urine Glucose (UA) Negative (Negative) Urine Ketones Negative (Negative) Urine Blood Trace H (Negative) Urine Nitrite Negative (Negative) Urine Bilirubin Negative (Negative) Urine Urobilinogen <2.0 (<2.0) mg/dL Ur Leukocyte Esterase Trace H (Negative) Urine RBC 2 (0-5) /hpf Urine WBC 1 (0-5) /hpf Urine Bacteria Rare H (None) /hpf Urine Mucus Rare H (None) /hpf Disposition Clinical Impression: Confusion Disposition: HOME SELF-CARE Condition: Stable Additional Instructions: Contact your regular doctor today to discuss dementia Call 911 or return to the ER if you have any confusion Is patient prescribed a controlled substance at d/c from ED?: No Referrals: Joby Loredo DO [Primary Care Provider] - 1-2 days
[2020-10-21 08:25] LABS: Appearance,Urine Clear (Clear); Bacteria,Urine Rare /hpf; Bilirubin,Urine Negative (Negative); Blood,Urine Trace (Negative); Color,Urine Yellow; Glucose,Urine (UA) Negative (Negative); Ketones,Urine Negative (Negative); Leukocyte Esterase,Urine Trace (Negative); Mucus,Urine Rare /hpf; Nitrite,Urine Negative (Negative); Protein,Urine Negative (Negative); RBC,Urine 2 /hpf (0-5); Specific Gravity,Urine 1.013 (1.001-1.035); Urobilinogen,Urine <2.0 mg/dL (<2.0); WBC,Urine 1 /hpf (0-5)
[2020-10-21] MEDS ORDERED: SODIUM CHLORIDE 0.9% 500 ML 500 ML IV ONE (08:32)
[2020-10-21 09:02] LABS: Basophils # (A) 0.1 k/uL (0-0.2); Basophils % (A) 1 %; Eosinophils # (A) 0.1 k/uL (0-0.7); Eosinophils % (A) 1 %; HGB 15.8 gm/dL (11.4-16.0); Lymphocytes % (A) 11 %; MCH 30.4 pg (25.0-35.0); MCHC 33.6 g/dL (31.0-37.0); MCV 90.5 fL (80.0-100.0); Mean Platelet Volume 7.6; Monocytes # (A) 0.7 k/uL (0-1.0); Monocytes % (A) 8 %; Neutrophils # (A) 6.8 k/uL (1.3-7.7); Neutrophils % (A) 78 %; Platelet Count 223 k/uL (150-450); RBC 5.19 m/uL (3.80-5.40); RDW 12.9 % (11.5-15.5); WBC 8.7 k/uL (3.8-10.6)
[2020-10-21 09:12] LABS: ALT 15 U/L (4-34); AST 29 U/L (14-36); African American GFR (CKD) >90 (>60 ml/min/1.73 sqM); Alkaline Phosphatase 61 U/L (38-126); Anion Gap 8 mmol/L; Blood Urea Nitrogen 18 mg/dL (7-17); Calcium 9.9 mg/dL (8.4-10.2); Carbon Dioxide 27 mmol/L (22-30); Chloride 104 mmol/L (98-107); Glucose 99 mg/dL (74-99); Non-African American GFR(CKD) >90 (>60 ml/min/1.73 sqM); Potassium 4.3 mmol/L (3.5-5.1); Sodium 139 mmol/L (137-145); Total Bilirubin 0.7 mg/dL (0.2-1.3)
--- NOTE | 2020-10-21 09:33 | XR ---
EXAMINATION TYPE: XR chest 2V DATE OF EXAM: 10/21/2020 COMPARISON: 08/07/2017 INDICATION: Altered mental status TECHNIQUE: Frontal and lateral views of the chest are obtained. FINDINGS: The heart size is normal. Sternotomy wires are present from prior CABG and cardiac valve surgery The pulmonary vasculature is normal. The lungs are clear. There is increased AP diameter is exaggeration of the thoracic kyphosis. Correl ate for senile emphysematous change IMPRESSION: 1. No acute pulmonary process.
--- NOTE | 2020-10-21 09:43 | CT ---
EXAMINATION TYPE: CT brain wo con DATE OF EXAM: 10/21/2020 COMPARISON: 02/16/2020 INDICATION: Altered mental status DLP: 1090 mGycm, Automated exposure control for dose reduction was used. CONTRAST: None CT of the brain is performed utilizing 3 mm thick sections through the posterior fossa and 3 mm thick sections through the remaining calvarium. Study is performed within 24 hours of arrival to the hosp ital. No abnormal hyperdensity is present to suggest an acute intracranial hemorrhage. No mass lesion is evident. No acute infarcts are evident. Some mild subcortical white matter changes are present may be related to microvascular ischemic change. Ventricles and sulci are prominent for the patient age. This may be more focal in the cerebellum. Paranasal sinuses and mastoid air cells within the [id number] are clear. IMPRESSIONS: 1. Cerebral atrophy. There is some mild deep white matter chronic appearing ischemic change 2. No acute intracranial process.
[2020-10-21 10:45] VITALS: RESP 16
[2020-10-21 12:01] VITALS: BP 144/80; PULSE 80
== END 2020-10-21 12:00 | disposition home or self-care (01) ==
LOC: EC 07:21
DX: R41.0 Disorientation, unspecified (principal); F03.90 Unspecified dementia, unspecified severity, without behavioral disturbance, psychotic disturbance, mood disturbance, and anxiety; Z79.82 Long term (current) use of aspirin; Z91.14 Patient's other noncompliance with medication regimen; Z88.0 Allergy status to penicillin; Z96.642 Presence of left artificial hip joint; Z95.2 Presence of prosthetic heart valve
CPT/HCPCS: 70450; 71046; 80053; 81001; 85025; 96360; 99285

== ENCOUNTER 2022-01-30 17:15 | Emergency (ER) | payer MEDICARE ==
[2022-01-30] MEDS ORDERED: SODIUM CHLORIDE 0.9% 1,000 ML IV ONE (17:29)
[2022-01-30 17:32] VITALS: RESP 16; TEMP 98.8
[2022-01-30 18:08] LABS: Appearance,Urine Clear (Clear); Bilirubin,Urine Negative (Negative); Blood,Urine Small (Negative); Color,Urine Light Yellow; Glucose,Urine (UA) Negative (Negative); Ketones,Urine Negative (Negative); Leukocyte Esterase,Urine Negative (Negative); Nitrite,Urine Negative (Negative); Protein,Urine Negative (Negative); RBC,Urine 3 /hpf (0-5); Urobilinogen,Urine <2.0 mg/dL (<2.0); WBC,Urine <1 /hpf (0-5)
[2022-01-30 18:09] LABS: Basophils % (A) 1 %; Eosinophils # (A) 0.1 k/uL (0-0.7); Eosinophils % (A) 2 %; HCT 45.1 % (34.0-46.0); HGB 14.3 gm/dL (11.4-16.0); Lymphocytes # (A) 0.7 k/uL (1.0-4.8); Lymphocytes % (A) 10 %; MCH 29.4 pg (25.0-35.0); MCHC 31.8 g/dL (31.0-37.0); MCV 92.6 fL (80.0-100.0); Monocytes # (A) 0.7 k/uL (0-1.0); Monocytes % (A) 10 %; Neutrophils # (A) 5.6 k/uL (1.3-7.7); Neutrophils % (A) 75 %; Platelet Count 221 k/uL (150-450); RBC 4.87 m/uL (3.80-5.40); RDW 13.8 % (11.5-15.5); WBC 7.5 k/uL (3.8-10.6)
[2022-01-30 18:15] LABS: Partial Thromboplastin Time 26.7 sec (22.0-30.0); Prothrombin Time 10.8 sec (9.0-12.0)
[2022-01-30 18:18] LABS: Amphetamine Screen,Urine Not Detected (NotDetected); Barbiturate Screen,Urine Not Detected (NotDetected); Benzodiazepines Screen,Urine Not Detected (NotDetected); Cocaine Screen,Urine Not Detected (NotDetected); Methadone Screen, Urine Not Detected (NotDetected); Opiate Screen,Urine Not Detected (NotDetected); Oxycodone Screen, Urine Not Detected (NotDetected); Phencyclidine Screen,Urine Not Detected (NotDetected); Tricyclic Antidepressant,Urine Not Detected (NotDetected); Urn Cannabinoid Scrn Not Detected (NotDetected)
[2022-01-30 18:24] LABS: ALT 11 U/L (4-34); AST 29 U/L (14-36); African American GFR (CKD) >90 (>60 ml/min/1.73 sqM); Albumin 4.5 g/dL (3.5-5.0); Alkaline Phosphatase 66 U/L (38-126); Anion Gap 6 mmol/L; Blood Urea Nitrogen 16 mg/dL (7-17); Calcium 9.3 mg/dL (8.4-10.2); Carbon Dioxide 24 mmol/L (22-30); Chloride 107 mmol/L (98-107); Glucose 93 mg/dL (74-99); Non-African American GFR(CKD) 89 (>60 ml/min/1.73 sqM); Sodium 137 mmol/L (137-145); Total Bilirubin 0.7 mg/dL (0.2-1.3); Total Protein 7.3 g/dL (6.3-8.2)
--- NOTE | 2022-01-30 18:28 | XR ---
EXAMINATION TYPE: XR chest 2V DATE OF EXAM: 01/30/2022 COMPARISON: 10/21/2020 INDICATION: Altered mental status TECHNIQUE: Frontal and lateral views of the chest are obtained. FINDINGS: The heart size is a prominent. The pulmonary vasculature is common and. The lungs are clear. Hyperinflation flattening of the diaphragms with increased AP diameter is prese nt compatible with COPD. IMPRESSION: 1. No acute pulmonary process. 2. COPD
--- NOTE | 2022-01-30 18:31 | CT ---
EXAMINATION TYPE: CT brain wo con DATE OF EXAM: 01/30/2022 COMPARISON: 10/21/2020 INDICATION: weakness, ams DLP: 1100.4 mGycm, Automated exposure control for dose reduction was used. CONTRAST: None CT of the brain is performed utilizing 3 mm thick sections through the posterior fossa and 3 mm thick sections through the remaining calvarium. Study is performed within 24 hours of arrival to the hosp ital. No abnormal hyperdensity is present to suggest an acute intracranial hemorrhage. No mass lesion is evident. No acute infarcts are evident. Subtle periventricular and deep white matter low density is present ma y be related to microvascular ischemic change, present previously. There is some focal atrophy of the cerebellum. This been present previously. Ventricles and sulci ar e otherwise appropriate for the patient age. Paranasal sinuses and mastoid air cells within the [id number] are clear. IMPRESSIONS: 1. Chronic Atrophy, greater within the cerebellum. Exam is stable from comparison. 2. No acute intracranial process radiographically apparent. MRI can be performed if additional evalua tion is clinically appropriate.
[2022-01-30 18:32] LABS: Potassium 4.2 mmol/L (3.5-5.1)
--- NOTE | 2022-01-30 19:56 | ED ---
Altered Mental Status HPI - General Chief Complaint: Altered Mental Status Stated Complaint: Altered Mental Status Time Seen by Provider: 01/30/22 17:29 Source: patient Mode of arrival: EMS - History of Present Illness Initial Comments: Patient states that she wasn't feeling right earlier today. She has no chest or belly or back pain. She has no headache, lightheadedness or dizziness. She has no nausea or vomiting. The symptoms began several hours ago. She is feeling like she is getting better. She took no medicine for the symptoms. She wasn't doing anything specific when this began. - Related Data Home Medications Medication Instructions Recorded Confirmed Alendronate Sodium [Fosamax] 70 mg PO WE 02/16/20 10/21/20 Ergocalciferol [Vitamin D2 50,000 unit PO HULL 02/16/20 10/21/20 (DRISDOL)] Metoprolol Succinate [Toprol XL] 25 mg PO DAILY 02/16/20 10/21/20 Aspirin EC [Ecotrin Low Dose] 81 mg PO DAILY 02/17/20 10/21/20 Previous Rx's Medication Instructions Recorded Donepezil [Aricept] 5 mg PO HS #30 tab 02/21/20 Memantine [Namenda] 5 mg PO DAILY #30 tab 02/21/20 Allergies Allergy/AdvReac Type Severity Reaction Status Date / Time Penicillins Allergy Unknown Verified 10/21/20 09:57 Review of Systems ROS Statement: Those systems with pertinent positive or pertinent negative responses have been documented in the HPI. ROS Other: All systems not noted in ROS Statement are negative. Past Medical History Past Medical History: Atrial Fibrillation Additional Past Medical History / Comment(s): Shingles 10/2016 History of Any Multi-Drug Resistant Organisms: None Reported Past Surgical History: Cardiac Valve Replacement, Joint Replacement Additional Past Surgical History / Comment(s): Left hip replacement. Past Psychological History: No Psychological Hx Reported Smoking Status: Never smoker Past Alcohol Use History: None Reported Past Drug Use History: None Reported General Exam General appearance: alert, in no apparent distress Head exam: Present: atraumatic, normocephalic, normal inspection Eye exam: Present: normal appearance, PERRL, EOMI. Absent: scleral icterus, conjunctival injection, periorbital swelling ENT exam: Present: normal exam, mucous membranes moist Neck exam: Present: normal inspection. Absent: tenderness, meningismus, lymphadenopathy Respiratory exam: Present: normal lung sounds bilaterally. Absent: respiratory distress, wheezes, rales, rhonchi, stridor Cardiovascular Exam: Present: regular rate, normal rhythm, normal heart sounds. Absent: systolic murmur, diastolic murmur, rubs, gallop, clicks GI/Abdominal exam: Present: soft, normal bowel sounds. Absent: distended, tenderness, guarding, rebound, rigid Extremities exam: Present: normal inspection, full ROM, normal capillary refill. Absent: tenderness, pedal edema, joint swelling, calf tenderness Back exam: Present: normal inspection Neurological exam: Present: alert, oriented X3, CN II-XII intact Psychiatric exam: Present: normal affect, normal mood Skin exam: Present: warm, dry, intact, normal color. Absent: rash Course Vital Signs 01/30/22 01/30/22 17:26 18:54 Temperature 98.8 F Pulse Rate 88 85 Respiratory 16 16 Rate Blood Pressure 149/78 133/82 O2 Sat by Pulse 98 97 Oximetry Medical Decision Making - Medical Decision Making Patient presents for evaluation after not feeling well earlier today. Her entire workup is totally normal. Her exam is unremarkable. She is alert and oriented 4. I can find no evidence of an emergency condition. I did offer her admission for observation which she declined. She would prefer to go home. - Lab Data Result diagrams: 01/30/22 17:52 01/30/22 17:52 Lab Results 01/30/22 01/30/22 01/30/22 Range/Units 17:52 17:52 17:52 WBC 7.5 (3.8-10.6) k/uL RBC 4.87 (3.80-5.40) m/uL Hgb 14.3 (11.4-16.0) gm/dL Hct 45.1 (34.0-46.0) % MCV 92.6 (80.0-100.0) fL MCH 29.4 (25.0-35.0) pg MCHC 31.8 (31.0-37.0) g/dL RDW 13.8 (11.5-15.5) % Plt Count 221 (150-450) k/uL MPV 8.0 Neutrophils % 75 % Lymphocytes % 10 % Monocytes % 10 % Eosinophils % 2 % Basophils % 1 % Neutrophils # 5.6 (1.3-7.7) k/uL Lymphocytes # 0.7 L (1.0-4.8) k/uL Monocytes # 0.7 (0-1.0) k/uL Eosinophils # 0.1 (0-0.7) k/uL Basophils # 0.0 (0-0.2) k/uL PT 10.8 (9.0-12.0) sec INR 1.0 (<1.2) APTT 26.7 (22.0-30.0) sec Sodium (137-145) mmol/L Potassium (3.5-5.1) mmol/L Chloride (98-107) mmol/L Carbon Dioxide (22-30) mmol/L Anion Gap mmol/L BUN (7-17) mg/dL Creatinine (0.52-1.04) mg/dL Est GFR (CKD-EPI)AfAm (>60 ml/min/1.73 sqM) Est GFR (CKD-EPI)NonAf (>60 ml/min/1.73 sqM) Glucose (74-99) mg/dL Calcium (8.4-10.2) mg/dL Total Bilirubin (0.2-1.3) mg/dL AST (14-36) U/L ALT (4-34) U/L Alkaline Phosphatase (38-126) U/L Ammonia (<30) umol/L Troponin I (0.000-0.034) ng/mL Total Protein (6.3-8.2) g/dL Albumin (3.5-5.0) g/dL Urine Color Light Yellow Urine Appearance Clear (Clear) Urine pH 5.0 (5.0-8.0) Ur Specific [place] 1.010 (1.001-1.035) Urine Protein Negative (Negative) Urine Glucose (UA) Negative (Negative) Urine Ketones Negative (Negative) Urine Blood Small H (Negative) Urine Nitrite Negative (Negative) Urine Bilirubin Negative (Negative) Urine Urobilinogen <2.0 (<2.0) mg/dL Ur Leukocyte Esterase Negative (Negative) Urine RBC 3 (0-5) /hpf Urine WBC <1 (0-5) /hpf Urine Opiates Screen Not Detected (NotDetected) Ur Oxycodone Screen Not Detected (NotDetected) Urine Methadone Screen Not Detected (NotDetected) Ur Propoxyphene Screen Not Detected (NotDetected) Ur Barbiturates Screen Not Detected (NotDetected) U Tricyclic Antidepress Not Detected (NotDetected) Ur Phencyclidine Scrn Not Detected (NotDetected) Ur Amphetamines Screen Not Detected (NotDetected) U Methamphetamines Scrn Not Detected (NotDetected) U Benzodiazepines Scrn Not Detected (NotDetected) Urine Cocaine Screen Not Detected (NotDetected) U Marijuana (THC) Screen Not Detected (NotDetected) 01/30/22 01/30/22 01/30/22 Range/Units 17:52 17:52 17:52 WBC (3.8-10.6) k/uL RBC (3.80-5.40) m/uL Hgb (11.4-16.0) gm/dL Hct (34.0-46.0) % MCV (80.0-100.0) fL MCH (25.0-35.0) pg MCHC (31.0-37.0) g/dL RDW (11.5-15.5) % Plt Count (150-450) k/uL MPV Neutrophils % % Lymphocytes % % Monocytes % % Eosinophils % % Basophils % % Neutrophils # (1.3-7.7) k/uL Lymphocytes # (1.0-4.8) k/uL Monocytes # (0-1.0) k/uL Eosinophils # (0-0.7) k/uL Basophils # (0-0.2) k/uL PT (9.0-12.0) sec INR (<1.2) APTT (22.0-30.0) sec Sodium 137 (137-145) mmol/L Potassium 4.2 (3.5-5.1) mmol/L Chloride 107 (98-107) mmol/L Carbon Dioxide 24 (22-30) mmol/L Anion Gap 6 mmol/L BUN 16 (7-17) mg/dL Creatinine 0.68 (0.52-1.04) mg/dL Est GFR (CKD-EPI)AfAm >90 (>60 ml/min/1.73 sqM) Est GFR (CKD-EPI)NonAf 89 (>60 ml/min/1.73 sqM) Glucose 93 (74-99) mg/dL Calcium 9.3 (8.4-10.2) mg/dL Total Bilirubin 0.7 (0.2-1.3) mg/dL AST 29 (14-36) U/L ALT 11 (4-34) U/L Alkaline Phosphatase 66 (38-126) U/L Ammonia <9 (<30) umol/L Troponin I <0.012 (0.000-0.034) ng/mL Total Protein 7.3 (6.3-8.2) g/dL Albumin 4.5 (3.5-5.0) g/dL Urine Color Urine Appearance (Clear) Urine pH (5.0-8.0) Ur Specific [place] (1.001-1.035) Urine Protein (Negative) Urine Glucose (UA) (Negative) Urine Ketones (Negative) Urine Blood (Negative) Urine Nitrite (Negative) Urine Bilirubin (Negative) Urine Urobilinogen (<2.0) mg/dL Ur Leukocyte Esterase (Negative) Urine RBC (0-5) /hpf Urine WBC (0-5) /hpf Urine Opiates Screen (NotDetected) Ur Oxycodone Screen (NotDetected) Urine Methadone Screen (NotDetected) Ur Propoxyphene Screen (NotDetected) Ur Barbiturates Screen (NotDetected) U Tricyclic Antidepress (NotDetected) Ur Phencyclidine Scrn (NotDetected) Ur Amphetamines Screen (NotDetected) U Methamphetamines Scrn (NotDetected) U Benzodiazepines Scrn (NotDetected) Urine Cocaine Screen (NotDetected) U Marijuana (THC) Screen (NotDetected) Disposition Clinical Impression: Malaise Disposition: HOME SELF-CARE Condition: Good Instructions (If sedation given, give patient instructions): Weakness (ED) Is patient prescribed a controlled substance at d/c from ED?: No Referrals: Joby Loredo DO [Primary Care Provider] - 1-2 days
[2022-01-30 20:42] VITALS: BP 133/81; PULSE 94
== END 2022-01-30 21:06 | disposition home or self-care (01) ==
LOC: EC 17:15
DX: R41.82 Altered mental status, unspecified (principal); R53.81 Other malaise; Z88.0 Allergy status to penicillin
CPT/HCPCS: 36415; 70450; 71046; 80053; 80306; 81001; 82140; 84484; 85025; 85610; 85730; 93005

== ENCOUNTER → 2022-03-21 | Outpatient (CLI) | payer MEDICARE ==
--- NOTE | 2022-03-21 16:02 | BD ---
EXAMINATION TYPE: Axial Bone Density DATE OF EXAM: 03/21/2022 COMPARISON: 06.21.2011 CLINICAL HISTORY: 71 years year old Female. ICD-10 CODE: M81.0 AGE-RELATED OSTEOPOROSIS Height: 58.5 Weight: 106 FRAX RISK QUESTIONS: History of Fracture in Adulthood: YES Secondary Osteoporosis: 3. 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 Bone mineral density as measured about the Lumbar spine is: ----- L1-L4(G/cm2): 0.758 T Score Values are as follows: ----- L1: -1.9 ----- L2: -3.4 ----- L3: -4.1 ----- L4: -4.4 ----- L1-L4: -3.5 Bone mineral density has: Decreased -11.4% since study of: 06.21.2011 Bone mineral density about the R hip (g/cm2): 0.652 T Score values are as follows: -----R Neck: -3.0 -----R Total: -2.8 Bone mineral density has: Decreased -12.8% since study of: 06.21.2011 FRAX%s: The graph provided illustrates a 27.4% chance for a major osteoporotic fx and a 9.8% chance f or the hips probability for fx in 10 years time. IMPRESSION: Osteoporosis (T Score less than -2.5). There is increased fracture risk and therapy is usually indicated based on age. Re-Screen 1-2 years. NOTE: T-SCORE=SD OF THE YOUNG ADULT MEAN.
--- NOTE | 2022-03-22 07:58 | MM ---
Reason for Exam: Screening (asymptomatic). Last mammogram was performed 4 year(s) and 3 month(s) ago. Patient History: Menarche at age 12. Patient has no children. Postmenopausal. 03/03/2015, Benign Core Biopsy on the left side. 04/07/2009, Benign Core Biopsy on the right side. Risk Values: Josee 5 year model risk: 3.2%. NCI Lifetime model risk: 9.1%. Prior Study Comparison: 07/19/2013 Bilateral Screening Mammogram, [facility]. 02/14/2015 Left Diagnostic Mammogram, [facility]. 03/03/2015 Left Diagnostic Mammogram, [facility]. 12/11/2017 Bilateral Screening Mammogram, [facility]. Tissue Density: The breast tissue is heterogeneously dense. This may lower the sensitivity of mammography. Findings: Analyzed By CAD. HX OF BIOPSIES BOTH BREASTS There is no suspicious group of microcalcifications or new suspicious mass in either breast. Stable postoperative distortion right breast. Overall Assessment: Benign, BI-RAD 2 Management: Screening Mammogram of both breasts in 1 year. A clinical breast exam by your physician is recommended on an annual basis and results should be correlated with mammographic findings. Electronically signed and approved by: Omer Zarate M.D. Radiologis
== END | disposition home or self-care (01) ==
LOC: RADMAMWWP 10:39
PROVIDERS: ATTEND Family Medicine
DX: Z12.31 Encounter for screening mammogram for malignant neoplasm of breast (principal); M81.0 Age-related osteoporosis without current pathological fracture; Z78.0 Asymptomatic menopausal state
CPT/HCPCS: 77063; 77067; 77080

== ENCOUNTER 2022-12-15 11:35 | Emergency (ER) | payer MEDICARE ==
[2022-12-15 11:56] VITALS: BP 143/67; PULSE 66; RESP 18; TEMP 98.5
--- NOTE | 2022-12-15 13:06 | XR ---
EXAMINATION TYPE: XR wrist complete 3 views BILATERAL, XR hand complete 3 views BILATERAL DATE OF EXAM: 12/15/2022 COMPARISON: NONE HISTORY: 72-year-old female fall and pain FINDINGS: LEFT: There is severe degenerative change at the first CMC and triscaphe joints. Negative ulnar variance no melissa. Osteopenia. Overlying fiberglass splint obscures fine osseous detail. No acute fracture clearly identified at the level of the wrist. With attention to the hand, the patient is unable to perform a true lateral view. There appears to be a displaced and impacted fracture deformity of the second metacarpal head and neck with lateral disp lacement and proximal migration. Fracture line not well seen. Suspect a more subacute to chronic inju ry. Further clinical correlation will be needed. No additional acute fracture seen. RIGHT: Severe degenerative change at the first CMC and triscaphe joints. Negative ulnar variance. Impacted a nd dorsally angulated, comminuted distal radial metaphyseal fracture. Fracture appears to extend into the articular surface of the radial lunate joint and distal radioulnar joint. There is some impactio n deformity to the head of the ulna also noted. Dorsal wrist and carpal soft tissue swelling is prese nt. Overlying fiberglass splint obscures fine osseous detail. With attention to the hand, additional degenerative change prominent at the first IP joint. The degre e of osteopenia limits evaluation on the lateral view. No definite additional acute fracture is seen. Partial flexion of the fingers further limits assessment. IMPRESSION (bilateral wrists and hands): 1. Left: Suspect a subacute to chronic fracture deformity of the second metacarpal head and neck with impaction and ulnar displacement. Correlate as to time since injury. There is an overlying fiberglas s splint. 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 2. Right: Overlying fiberglass splint here as well. There is an underlying acute to subacute comminut ed and impacted, dorsally angulated fracture of the distal radial metaphysis and epiphysis. Additiona l impaction injury to the ulnar head. 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
--- NOTE | 2022-12-15 13:10 | ED ---
Upper Extremity HPI - General Chief Complaint: Extremity Injury, Upper Stated Complaint: arm injury - sent by urgent care Time Seen by Provider: 12/15/22 11:59 Source: patient Mode of arrival: ambulatory Limitations: no limitations - History of Present Illness Initial Comments: Patient is a 72-year-old female presenting from urgent care for bilateral hand and wrist injuries. Patient had a slip and fall today landing on the bilateral outstretched hands. She denies hitting her head, no loss of consciousness, no blood thinners. Patient was seen in urgent care, placed in bilateral volar splints, and states she was sent here to get a cast applied. X-ray reports for the right hand and wrist described a nondisplaced fracture involving the neck of the second metacarpal with palmar angulation and severely comminuted fracture involving the distal radius with dorsal displacement of distal fracture fragment. No numbness or tingling. No headache, vision or hearing changes, neck pain or stiffness, nausea, vomiting, dizziness, chest pain, difficulty breathing, palpitations - Related Data Home Medications Medication Instructions Recorded Confirmed Alendronate Sodium [Fosamax] 70 mg PO WE 02/16/20 10/21/20 Ergocalciferol [Vitamin D2 50,000 unit PO HULL 02/16/20 10/21/20 (DRISDOL)] Metoprolol Succinate [Toprol XL] 25 mg PO DAILY 02/16/20 10/21/20 Aspirin EC [Ecotrin Low Dose] 81 mg PO DAILY 02/17/20 10/21/20 Previous Rx's Medication Instructions Recorded Donepezil [Aricept] 5 mg PO HS #30 tab 02/21/20 Memantine [Namenda] 5 mg PO DAILY #30 tab 02/21/20 Allergies Allergy/AdvReac Type Severity Reaction Status Date / Time Penicillins Allergy Unknown Verified 12/15/22 11:56 Review of Systems ROS Statement: Those systems with pertinent positive or pertinent negative responses have been documented in the HPI. ROS Other: All systems not noted in ROS Statement are negative. Past Medical History Past Medical History: Atrial Fibrillation Additional Past Medical History / Comment(s): Shingles 10/2016 History of Any Multi-Drug Resistant Organisms: None Reported Past Surgical History: Cardiac Valve Replacement, Joint Replacement Additional Past Surgical History / Comment(s): Left hip replacement. Past Psychological History: No Psychological Hx Reported Smoking Status: Never smoker Past Alcohol Use History: None Reported Past Drug Use History: None Reported General Exam Limitations: no limitations General appearance: alert, in no apparent distress Head exam: Present: atraumatic, normocephalic, normal inspection Eye exam: Present: normal appearance Neck exam: Present: normal inspection, full ROM Respiratory exam: Present: normal lung sounds bilaterally. Absent: respiratory distress, wheezes, rales, rhonchi, stridor Cardiovascular Exam: Present: regular rate, normal rhythm, normal heart sounds. Absent: systolic murmur, diastolic murmur, rubs, gallop, clicks Extremities exam: Present: tenderness. Absent: full ROM Neurological exam: Present: alert, oriented X3, CN II-XII intact Expanded Eye Response: (4) open spontaneously Motor Response: (6) obeys commands Verbal Response: (5) oriented Rafat Total: 15 Psychiatric exam: Present: normal affect, normal mood Skin exam: Present: warm, dry, intact, normal color. Absent: rash Course Vital Signs 12/15/22 11:52 Temperature 98.5 F Pulse Rate 66 Respiratory 18 Rate Blood Pressure 143/67 O2 Sat by Pulse 99 Oximetry Medical Decision Making - Medical Decision Making Was pt. sent in by a medical professional or institution (, [facility], [employer], urgent care, hospital, or group home...) When possible be specific @ -Sent by urgent care Did you speak to anyone other than the patient for history (EMS, parent, family, police, friend...)? What history was obtained from this source @ -Patient's family member Did you review nursing and triage notes (agree or disagree)? Why? @ -I reviewed and agree with nursing and triage notes Were old charts reviewed (outside hosp., previous admission, EMS record, old EKG, old radiological studies, urgent care reports/EKG's, group home records)? Report findings @ -X-ray reports from [facility] urgent care are reviewed Differential Diagnosis (chest pain, altered mental status, abdominal pain women, abdominal pain men, vaginal bleeding, weakness, fever, dyspnea, syncope, headache, dizziness, GI bleed, back pain, seizure, CVA, palpatations, mental health, musculoskeletal)? @ -not applicable EKG interpreted by me (3pts min.). @ -As above X-rays interpreted by me (1pt min.). @ -X-ray on the left shows a subacute to chronic fracture deformity of the second metacarpal head and neck with impaction and ulnar displacement. X-ray of the right side shows underlying acute to subacute comminuted and impacted dorsally angulated fracture of the distal radial metaphysis and epiphysis. Additional impaction injury to the ulnar head. CT interpreted by me (1pt min.). @ -None done U/S interpreted by me (1pt. min.). @ -None done What testing was considered but not performed or refused? (CT, X-rays, U/S, labs)? Why? @ -None What meds were considered but not given or refused? Why? @ -None Did you discuss the management of the patient with other professionals (fredrick jon i.e. , PA, C[employer]ON F[employer]DER, lab, RT, psych nurse, professor of social work, test baker, teacher, quarantine officer, case aide)? Give summary @ -No Was smoking cessation discussed for >3mins.? @ -No Was critical care preformed (if so, how long)? @ -No Were there social determinants of health that impacted care today? How? (Homelessness, low income, unemployed, alcoholism, drug addiction, transportation, low edu. Level, literacy, decrease access to med. care, care home, rehab)? @ -No Was there de-escalation of care discussed even if they declined (Discuss DNR or withdrawal of care, Hospice)? DNR status @ -No What co-morbidities impacted this encounter? (DM, HTN, Smoking, COPD, CAD, Cancer, CVA, ARF, Chemo, Hep., AIDS, mental health diagnosis, sleep apnea, morbid obesity)? @ -None Was patient admitted / discharged? Hospital course, mention meds given and route, prescriptions, significant lab abnormalities, going to OR and other pertinent info. @ -Patient is a 72-year-old female sent here from urgent care for concerns of bilateral fractures to the wrist after fall on out stretched hands earlier today. No head injury, loss of consciousness, or use of blood thinners. Patient was placed in bilateral volar splints and supposedly sent here for the application of a cast. I explained to the patient and her family member that a cast cannot be applied at this time as the injury is in the acute phase and there is still a good amount of swelling that will occur, applying a cast boot compromised blood flow to the limbs. They have reports of the right hand and wrist x-ray performed at urgent care, no reports for the left side and no images are included. Repeat imaging in our facility is obtained to ensure that the patient is placed in the correct splint. While waiting for the x-ray reports patient and family member walked out, I explained to them that repeat imaging is necessary at this time to ensure the correct splint is placed in explained why placing a cast would be harmful at this time. Patient's family member accompanying her states that they need to go home because she is a type I diabetic and needs to eat and needs to give the patient Tylenol. I offered them food and Tylenol here in the ER and they refused and left AGAINST MEDICAL ADVICE. They should follow-up with PCP and orthopedics. Undiagnosed new problem with uncertain prognosis? @ -No Drug Therapy requiring intensive monitoring for toxicity (Heparin, Nitro, Insulin, Cardizem)? @ -No Were any procedures done? @ -No Diagnosis/symptom? @ -Fractures of the bilateral hands and wrists Acute, or Chronic, or Acute on Chronic? @ -Acute Uncomplicated (without systemic symptoms) or Complicated (systemic symptoms)? @ -Uncomplicated Side effects of treatment? @ -No Exacerbation, Progression, or Severe Exacerbation? @ -No Poses a threat to life or bodily function? How? (Chest pain, [place], [place], pneumonia, PE, COPD, DKA, ARF, appy, cholecystitis, CVA, Diverticulitis, Homicidal, Suicidal, threat to staff... and all critical care pts) @ -No Disposition Clinical Impression: Metacarpal bone fracture, Distal radius fracture Disposition: Left Against Medical Advice Condition: Fair Referrals: Joby Loredo DO [Primary Care Provider] - 1-2 days Lemuel Cardenas DO [Doctor of Osteopathic Medicine] - 1-2 days
== END 2022-12-15 13:30 | disposition left against medical advice (07) ==
LOC: EC 11:35
DX: S52.121A Displaced fracture of head of right radius, initial encounter for closed fracture (principal); S52.502A Unspecified fracture of the lower end of left radius, initial encounter for closed fracture; S62.301A Unspecified fracture of second metacarpal bone, left hand, initial encounter for closed fracture; S62.300A Unspecified fracture of second metacarpal bone, right hand, initial encounter for closed fracture; I48.91 Unspecified atrial fibrillation; Z88.0 Allergy status to penicillin; Z79.899 Other long term (current) drug therapy; Z53.29 Procedure and treatment not carried out because of patient's decision for other reasons; W01.0XXA Fall on same level from slipping, tripping and stumbling without subsequent striking against object, initial encounter
CPT/HCPCS: 99283

== ENCOUNTER 2023-07-08 03:46 | Emergency (ER) | payer MEDICARE ==
[2023-07-08 04:10] VITALS: BP 130/71; PULSE 98; RESP 18; TEMP 98.8
[2023-07-08 04:30] LABS: Basophils % (A) 0 %; Eosinophils # (A) 0.1 k/uL (0-0.7); Eosinophils % (A) 1 %; HCT 44.1 % (34.0-46.0); HGB 14.6 gm/dL (11.4-16.0); Lymphocytes # (A) 0.5 k/uL (1.0-4.8); Lymphocytes % (A) 6 %; MCH 31.7 pg (25.0-35.0); MCHC 33.1 g/dL (31.0-37.0); MCV 95.8 fL (80.0-100.0); Mean Platelet Volume 7.5; Monocytes # (A) 0.5 k/uL (0-1.0); Monocytes % (A) 6 %; Neutrophils # (A) 7.4 k/uL (1.3-7.7); Neutrophils % (A) 86 %; Platelet Count 239 k/uL (150-450); WBC 8.5 k/uL (3.8-10.6)
[2023-07-08 04:42] LABS: ALT 17 U/L (4-34); AST 28 U/L (14-36); African American GFR (CKD) >90 (>60 ml/min/1.73 sqM); Albumin 4.7 g/dL (3.5-5.0); Alkaline Phosphatase 72 U/L (38-126); Anion Gap 12 mmol/L; Blood Urea Nitrogen 16 mg/dL (7-17); Calcium 9.9 mg/dL (8.4-10.2); Carbon Dioxide 23 mmol/L (22-30); Chloride 100 mmol/L (98-107); Glucose 95 mg/dL (74-99); Non-African American GFR(CKD) >90 (>60 ml/min/1.73 sqM); Potassium 4.5 mmol/L (3.5-5.1); Sodium 135 mmol/L (137-145); Total Bilirubin 1.6 mg/dL (0.2-1.3); Total Protein 7.5 g/dL (6.3-8.2)
== END 2023-07-08 05:08 | disposition left against medical advice (07) ==
LOC: EC 03:46
DX: Z53.21 Procedure and treatment not carried out due to patient leaving prior to being seen by health care provider (principal); R53.1 Weakness; I48.91 Unspecified atrial fibrillation
CPT/HCPCS: 36415; 80053; 85025; 99499

== ENCOUNTER 2023-07-16 12:19 | Emergency (ER) | payer MEDICARE ==
[2023-07-16 12:46] VITALS: BP 107/71; PULSE 74; RESP 16; TEMP 98.2
--- NOTE | 2023-07-16 13:28 | XR ---
EXAMINATION TYPE: XR Hip Complete RT DATE OF EXAM: 07/16/2023 CLINICAL HISTORY: pain TECHNIQUE: AP and frogleg views of the right hip are obtained. COMPARISON: None. FINDINGS: There is no acute fracture/dislocation evident. There appears to be deformity of the right superior and inferior pubic rami. The joint space appears within normal limits. The overlying soft tissue appears unremarkable. IMPRESSION: 1. There appears to be deformity of the right superior and inferior pubic rami. Right hip is grossl y intact.
--- NOTE | 2023-07-16 15:37 | XR ---
EXAMINATION TYPE: XR pelvis AP view DATE OF EXAM: 07/16/2023 COMPARISON: NONE HISTORY: Pain FINDINGS: Diffuse osteopenia. 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 Postsurgical change of left hip. Vascular calcification in the pelvis. IMPRESSION: 1. No acute fracture. Chronic deformity involving the pubic rami is stable from CAT scan of 06/23/2023 . If there is high clinical concern for fracture or the patient is unable to weight bear correlate wi th CAT scan given the rotation of the patient and chronic deformity of the pubic rami. 2. postsurgical change left hip.
--- NOTE | 2023-07-16 15:58 | ED ---
Fall HPI - General Chief Complaint: Fall Stated Complaint: right hip pain Time Seen by Provider: 07/16/23 14:17 Source: patient, family, RN notes reviewed Mode of arrival: ambulatory Limitations: no limitations - History of Present Illness Initial Comments: 73-year-old female presented for a fall one week ago. Patient has mild hip pain on the right but is able to ambulate. States his just sore no head injury no loss conscious she's had a prior fracture. Patient denies any back pain no bowel bladder incontinence attention. - Related Data Home Medications Medication Instructions Recorded Confirmed Alendronate Sodium [Fosamax] 70 mg PO WE 02/16/20 10/21/20 Ergocalciferol [Vitamin D2 50,000 unit PO HULL 02/16/20 10/21/20 (DRISDOL)] Metoprolol Succinate [Toprol XL] 25 mg PO DAILY 02/16/20 10/21/20 Aspirin EC [Ecotrin Low Dose] 81 mg PO DAILY 02/17/20 10/21/20 Previous Rx's Medication Instructions Recorded Donepezil [Aricept] 5 mg PO HS #30 tab 02/21/20 Memantine [Namenda] 5 mg PO DAILY #30 tab 02/21/20 Allergies Allergy/AdvReac Type Severity Reaction Status Date / Time Penicillins Allergy Unknown Verified 07/16/23 12:43 Sulfa (Sulfonamide Allergy Rash/Hives Verified 07/16/23 12:43 Antibiotics) Review of Systems ROS Statement: Those systems with pertinent positive or pertinent negative responses have been documented in the HPI. ROS Other: All systems not noted in ROS Statement are negative. Past Medical History Past Medical History: Atrial Fibrillation Additional Past Medical History / Comment(s): Nas 10/2016 History of Any Multi-Drug Resistant Organisms: None Reported Past Surgical History: Cardiac Valve Replacement, Joint Replacement Additional Past Surgical History / Comment(s): Left hip replacement. Past Psychological History: No Psychological Hx Reported Smoking Status: Never smoker Past Alcohol Use History: None Reported Past Drug Use History: None Reported General Exam Limitations: no limitations General appearance: alert, in no apparent distress Head exam: Present: atraumatic, normocephalic, normal inspection Respiratory exam: Present: normal lung sounds bilaterally. Absent: respiratory distress, wheezes, rales, rhonchi, stridor Cardiovascular Exam: Present: regular rate, normal rhythm, normal heart sounds. Absent: systolic murmur, diastolic murmur, rubs, gallop, clicks Extremities exam: Present: other (Minimal tenderness neurovascular intact right hip, no shortening or rotation) Back exam: Present: full ROM. Absent: tenderness, paraspinal tenderness, vertebral tenderness Course Vital Signs 07/16/23 12:43 Temperature 98.2 F Pulse Rate 74 Respiratory 16 Rate Blood Pressure 107/71 O2 Sat by Pulse 97 Oximetry Medical Decision Making - Medical Decision Making Was pt. sent in by a medical professional or institution (, [facility], SENIOR RESEARCH PROJECT MANAGER, urgent care, hospital, or prison...) When possible be specific @ -No Did you speak to anyone other than the patient for history (EMS, parent, family, police, friend...)? What history was obtained from this source @ -No Did you review nursing and triage notes (agree or disagree)? Why? @ -I reviewed and agree with nursing and triage notes Were old charts reviewed (outside hosp., previous admission, EMS record, old EKG, old radiological studies, urgent care reports/EKG's, prison records)? Report findings @ -No old charts were reviewed Differential Diagnosis (chest pain, altered mental status, abdominal pain women, abdominal pain men, vaginal bleeding, weakness, fever, dyspnea, syncope, headache, dizziness, GI bleed, back pain, seizure, CVA, palpatations, mental health, musculoskeletal)? @ -Hip fracture, hip contusion, pelvic fracture] EKG interpreted by me (3pts min.). @ -None X-rays interpreted by me (1pt min.). @ -X-ray pelvis, right hip no acute fracture dislocation chronic deformity noted CT interpreted by me (1pt min.). @ -None done U/S interpreted by me (1pt. min.). @ -None done What testing was considered but not performed or refused? (CT, X-rays, U/S, labs)? Why? @ -None What meds were considered but not given or refused? Why? @ -None Did you discuss the management of the patient with other professionals (professionals i.e. [facility] Rios, SENIOR RESEARCH PROJECT MANAGER, lab, RT, psych nurse, group social worker, location man, teacher, employment security officer, telehealth case manager)? Give summary @ -No Was smoking cessation discussed for >3mins.? @ -No Was critical care preformed (if so, how long)? @ -No Were there social determinants of health that impacted care today? How? (Homelessness, low income, unemployed, alcoholism, drug addiction, transportation, low edu. Level, literacy, decrease access to med. care, senior care, rehab)? @ -No Was there de-escalation of care discussed even if they declined (Discuss DNR or withdrawal of care, Hospice)? DNR status @ -No What co-morbidities impacted this encounter? (DM, HTN, Smoking, COPD, CAD, Cancer, CVA, ARF, Chemo, Hep., AIDS, mental health diagnosis, sleep apnea, morbid obesity)? @ -None Was patient admitted / discharged? Hospital course, mention meds given and route, prescriptions, significant lab abnormalities, going to OR and other pertinent info. @ -Discharge patient able to ambulate patient x-ray shows chronic fracture no acute fracture we discharged in stable condition. Undiagnosed new problem with uncertain prognosis? @ -No Drug Therapy requiring intensive monitoring for toxicity (Heparin, Nitro, Insulin, Cardizem)? @ -No Were any procedures done? @ -No Diagnosis/symptom? @ -Right hip contusion Acute, or Chronic, or Acute on Chronic? @ -Acute Uncomplicated (without systemic symptoms) or Complicated (systemic symptoms)? @ -Uncomplicated Side effects of treatment? @ -No Exacerbation, Progression, or Severe Exacerbation? @ -No Poses a threat to life or bodily function? How? (Chest pain, [place], [place], pneumonia, PE, COPD, DKA, ARF, appy, cholecystitis, CVA, Diverticulitis, Homicidal, Suicidal, threat to staff... and all critical care pts) @ -No Disposition Clinical Impression: Fall, Contusion of right hip Disposition: HOME SELF-CARE Condition: Stable Instructions (If sedation given, give patient instructions): Hip Contusion (ED) Additional Instructions: Please return to the Emergency Department if symptoms worsen or any other concerns. Is patient prescribed a controlled substance at d/c from ED?: No Referrals: Joby Loredo DO [Primary Care Provider] - 1-2 days Molina Doyle MD [Medical Doctor] - 1-2 days Time of Disposition: 15:57
== END 2023-07-16 16:26 | disposition home or self-care (01) ==
LOC: EC 12:19
DX: S70.01XA Contusion of right hip, initial encounter (principal); I48.91 Unspecified atrial fibrillation; Z79.82 Long term (current) use of aspirin; Z88.0 Allergy status to penicillin; Z88.2 Allergy status to sulfonamides; W19.XXXA Unspecified fall, initial encounter
CPT/HCPCS: 72170; 73502; 99284

== ENCOUNTER 2024-09-27 09:21 | Emergency (ER) | payer MEDICARE ==
[2024-09-27 09:33] VITALS: PULSE 55
--- NOTE | 2024-09-27 10:05 | ED ---
Altered Mental Status HPI - General Chief Complaint: Altered Mental Status Stated Complaint: Lethargy Time Seen by Provider: 09/27/24 09:24 Source: patient, EMS, RN notes reviewed Mode of arrival: EMS Limitations: altered mental status - History of Present Illness Initial Comments: This is a 74-year-old female who presents to the emergency department for altered mental status. Patient lives at [facility] and has been on antibiotics for the last week for a UTI. This morning she was reportedly difficult to arouse and seemed more altered than usual. She does have a history of dementia and is A&O x 1-2 at baseline. Patient currently denies any complaints but states that she does feel tired. MD Complaint: altered mental status - Related Data Home Medications Medication Instructions Recorded Confirmed Metoprolol Succinate [Toprol XL] 25 mg PO DAILY@0800 02/16/20 09/27/24 ALPRAZolam [Xanax] 0.5 mg PO BID PRN 09/27/24 09/27/24 Acetaminophen Tab [Tylenol] 650 mg PO Q4H PRN 09/27/24 09/27/24 Acetaminophen [Tylenol Arthritis] 650 mg PO BID@08,199909/27/24 09/27/24 Ciprofloxacin HCl [Cipro] 500 mg PO BID@08,199909/27/24 09/27/24 Donepezil [Aricept] 10 mg PO DAILY@0800 09/27/24 09/27/24 Ergocalciferol [Vitamin D2 (1250 1,250 mcg PO MO@79909/27/24 09/27/24 Mcg = 12019 Iu)] Escitalopram [Lexapro] 20 mg PO DAILY@0800 09/27/24 09/27/24 Loperamide HCl [Loperamide] 2 mg PO QID PRN 09/27/24 09/27/24 Loperamide [Imodium] 4 mg PO DAILY@79909/27/24 09/27/24 Melatonin 5 mg PO HS@199909/27/24 09/27/24 Memantine [Namenda] 5 mg PO BID@0800,199909/27/24 09/27/24 Multivitamins, Thera [Multivitamin 1 tab PO DAILY@0800 09/27/24 09/27/24 (formulary)] Oxybutynin Xl [Ditropan XL] 5 mg PO HS@199909/27/24 09/27/24 Sennosides/Docusate Sodium [Senna 2 tab PO HS@199909/27/24 09/27/24 Plus 8.6-50 mg Tablet] Tolnaftate [Tolnaftate 1%] 1 applic TOPICAL BID PRN 09/27/24 09/27/24 Allergies Allergy/AdvReac Type Severity Reaction Status Date / Time Penicillins Allergy Unknown Verified 09/27/24 12:31 Sulfa (Sulfonamide Allergy Rash/Hives Verified 09/27/24 12:31 Antibiotics) Review of Systems ROS Statement: Those systems with pertinent positive or pertinent negative responses have been documented in the HPI. ROS Other: All systems not noted in ROS Statement are negative. Past Medical History Past Medical History: Atrial Fibrillation Additional Past Medical History / Comment(s): Shingles 10/2016 History of Any Multi-Drug Resistant Organisms: None Reported Past Surgical History: Cardiac Valve Replacement, Joint Replacement Additional Past Surgical History / Comment(s): Left hip replacement. Past Psychological History: No Psychological Hx Reported Smoking Status: Never smoker Past Alcohol Use History: None Reported Past Drug Use History: None Reported General Exam Limitations: altered mental status General appearance: alert, in no apparent distress Head exam: Present: atraumatic, normocephalic, normal inspection Eye exam: Present: normal appearance, PERRL, EOMI. Absent: scleral icterus, conjunctival injection, periorbital swelling Respiratory exam: Present: normal lung sounds bilaterally. Absent: respiratory distress, wheezes, rales, rhonchi, stridor Cardiovascular Exam: Present: regular rate, normal rhythm, normal heart sounds. Absent: systolic murmur, diastolic murmur, rubs, gallop, clicks Neurological exam: Present: alert Skin exam: Present: warm, dry, intact, normal color. Absent: rash Course Vital Signs 09/27/24 09/27/24 09/27/24 09:24 11:40 12:42 Temperature 97.7 F 98.1 F Pulse Rate 55 L 56 L 55 L Respiratory 15 17 21 Rate Blood Pressure 140/76 126/75 149/89 O2 Sat by Pulse 97 97 98 Oximetry Medical Decision Making - Medical Decision Making This is a 74-year-old female who presents to the emergency department for altered mental status. Was pt. sent in by a medical professional or institution? @ -No Did you speak to anyone other than the patient for history? @ -EMS and [facility] provided all of the history. Did you review nursing and triage notes? @ -Yes, and I agree, it is accurate with regards to the patient's symptoms. Were old charts reviewed? @ -No Differential Diagnosis? @ -Differential Altered Mental Status: Hypoglycemia, DKA, hypercapnia, ETOH, overdose, CO poisoning, trauma, myxedema coma, HTN encephalopathy, infection, encephalitis, psychosis, intercranial hemorrhage, hepatic encephalopathy, meningitis, CVA, this is not meant to be an all-inclusive list EKG interpreted by me (3pts min.)? @ -EKG interpreted by me demonstrating the following: Sinus bradycardia. Ventricular rate 56 bpm, OR interval 120 ms, QRS duration 91 ms, QTc 451 ms. X-rays interpreted by me (1pt min.)? @ -Chest x-ray obtained, my interpretation identifies no localized consolidations or infiltrates. CT interpreted by me (1pt min.)? @ -CT scan of the brain obtained. My interpretation identifies no evidence of an acute intracranial hemorrhage. U/S interpreted by me (1pt. min.)? @ -Not obtained What testing was considered but not performed? (CT, X-rays, U/S, labs)? Why? @ -None What meds were considered but not given? Why? @ -None Did you discuss the management of the patient with other professionals? @ -No Did you reconcile home meds? @ -No Was smoking cessation discussed for >3mins.? @ -No Was critical care preformed (if so, how long)? @ -No Were there social determinants of health that impacted care today? How? (Homelessness, low income, unemployed, alcoholism, drug addiction, sanchez sportation, low edu. Level, literacy, decrease access to med. care, halfway, rehab)? @ -No Was there de-escalation of care discussed even if they declined? (Discuss DNR or withdrawal of care, Hospice)? @ -No What co-morbidities impacted this encounter? (DM, HTN, Smoking, COPD, CAD, Cancer, CVA, Hep., AIDS, mental health diagnosis, sleep apnea, morbid obesity)? @ -Dementia Was patient admitted / discharged? @ -Discharged. Lab work unremarkable. COVID, influenza, and RSV testing negative. Urinalysis negative for signs of infection. Urine drug screen only positive for benzodiazepines, which she does have a prescription for. Chest x- ray and CT scan of the brain obtained also revealing no acute findings. On arrival she was acting sleepy and difficult to arouse. However, she then became much more active and aggressive, trying to rip out her IV. She does not appear to have any acute illness or other condition contributing to her altered mentation. This could be a progression of the dementia. She was discharged back to [facility] in stable condition. Case discussed with ED attending Dr. Nichole. Undiagnosed new problem with uncertain prognosis? @ -None Drug Therapy requiring intensive monitoring for toxicity (Heparin, Nitro, Insulin, Cardizem)? @ -None Were any procedures done? @ -None Diagnosis/symptom? @ -Change in behavior Acute, or Chronic, or Acute on Chronic? @ -Acute Uncomplicated (without systemic symptoms) or Complicated (systemic symptoms)? @ -Uncomplicated Side effects of treatment? @ -None Exacerbation, Progression, or Severe Exacerbation] @ -Not applicable Poses a threat to life or bodily function? @ -Unlikely - Lab Data Result diagrams: 09/27/24 10:04 09/27/24 10:04 Lab Results 09/27/24 09/27/24 09/27/24 Range/Units 10:04 10:04 10:04 WBC 6.0 (3.8-10.6) k/uL RBC 4.47 (3.80-5.40) m/uL Hgb 13.8 (11.4-16.0) gm/dL Hct 41.0 (34.0-46.0) % MCV 91.8 (80.0-100.0) fL MCH 30.8 (25.0-35.0) pg MCHC 33.6 (31.0-37.0) g/dL RDW 13.0 (11.5-15.5) % Plt Count 184 (150-450) k/uL MPV 7.2 Neutrophils % 78 % Lymphocytes % 8 % Monocytes % 11 % Eosinophils % 1 % Basophils % 0 % Neutrophils # 4.7 (1.3-7.7) k/uL Lymphocytes # 0.5 L (1.0-4.8) k/uL Monocytes # 0.6 (0-1.0) k/uL Eosinophils # 0.0 (0-0.7) k/uL Basophils # 0.0 (0-0.2) k/uL PT 11.9 (10.0-12.5) sec INR 1.1 (<1.2) APTT 25.7 (22.0-30.0) sec Sodium 133 L (137-145) mmol/L Potassium 4.8 (3.5-5.1) mmol/L Chloride 99 (98-107) mmol/L Carbon Dioxide 29 (22-30) mmol/L Anion Gap 5 mmol/L BUN 16 (7-17) mg/dL Creatinine 0.74 (0.52-1.04) mg/dL Est GFR (CKD-EPI)AfAm >90 (>60 ml/min/1.73 sqM) Est GFR (CKD-EPI)NonAf 81 (>60 ml/min/1.73 sqM) Glucose 94 (74-99) mg/dL Calcium 8.8 (8.4-10.2) mg/dL Total Bilirubin 0.9 (0.2-1.3) mg/dL AST 23 (14-36) U/L ALT 11 (4-34) U/L Alkaline Phosphatase 37 L (38-126) U/L Total Protein 6.0 L (6.3-8.2) g/dL Albumin 3.9 (3.5-5.0) g/dL Urine Color Urine Appearance (Clear) Urine pH (5.0-8.0) Ur Specific Mcdermott (1.001-1.035) Urine Protein (Negative) Urine Glucose (UA) (Negative) Urine Ketones (Negative) Urine Blood (Negative) Urine Nitrite (Negative) Urine Bilirubin (Negative) Urine Urobilinogen (<2.0) mg/dL Ur Leukocyte Esterase (Negative) Urine Opiates Screen (NotDetected) Ur Oxycodone Screen (NotDetected) Urine Methadone Screen (NotDetected) Ur Barbiturates Screen (NotDetected) U Tricyclic Antidepress (NotDetected) Ur Phencyclidine Scrn (NotDetected) Ur Amphetamines Screen (NotDetected) U Methamphetamines Scrn (NotDetected) U Benzodiazepines Scrn (NotDetected) Urine Cocaine Screen (NotDetected) U Marijuana (THC) Screen (NotDetected) Influenza Type A (PCR) (Not Detectd) Influenza Type B (PCR) (Not Detectd) RSV (PCR) (Not Detectd) SARS-CoV-2 (PCR) (Not Detectd) 09/27/24 09/27/24 Range/Units 10:04 10:47 WBC (3.8-10.6) k/uL RBC (3.80-5.40) m/uL Hgb (11.4-16.0) gm/dL Hct (34.0-46.0) % MCV (80.0-100.0) fL MCH (25.0-35.0) pg MCHC (31.0-37.0) g/dL RDW (11.5-15.5) % Plt Count (150-450) k/uL MPV Neutrophils % % Lymphocytes % % Monocytes % % Eosinophils % % Basophils % % Neutrophils # (1.3-7.7) k/uL Lymphocytes # (1.0-4.8) k/uL Monocytes # (0-1.0) k/uL Eosinophils # (0-0.7) k/uL Basophils # (0-0.2) k/uL PT (10.0-12.5) sec INR (<1.2) APTT (22.0-30.0) sec Sodium (137-145) mmol/L Potassium (3.5-5.1) mmol/L Chloride (98-107) mmol/L Carbon Dioxide (22-30) mmol/L Anion Gap mmol/L BUN (7-17) mg/dL Creatinine (0.52-1.04) mg/dL Est GFR (CKD-EPI)AfAm (>60 ml/min/1.73 sqM) Est GFR (CKD-EPI)NonAf (>60 ml/min/1.73 sqM) Glucose (74-99) mg/dL Calcium (8.4-10.2) mg/dL Total Bilirubin (0.2-1.3) mg/dL AST (14-36) U/L ALT (4-34) U/L Alkaline Phosphatase (38-126) U/L Total Protein (6.3-8.2) g/dL Albumin (3.5-5.0) g/dL Urine Color Light Yellow Urine Appearance Clear (Clear) Urine pH 7.0 (5.0-8.0) Ur Specific Mcdermott 1.011 (1.001-1.035) Urine Protein Negative (Negative) Urine Glucose (UA) Negative (Negative) Urine Ketones Negative (Negative) Urine Blood Negative (Negative) Urine Nitrite Negative (Negative) Urine Bilirubin Negative (Negative) Urine Urobilinogen <2.0 (<2.0) mg/dL Ur Leukocyte Esterase Negative (Negative) Urine Opiates Screen Not Detected (NotDetected) Ur Oxycodone Screen Not Detected (NotDetected) Urine Methadone Screen Not Detected (NotDetected) Ur Barbiturates Screen Not Detected (NotDetected) U Tricyclic Antidepress Not Detected (NotDetected) Ur Phencyclidine Scrn Not Detected (NotDetected) Ur Amphetamines Screen Not Detected (NotDetected) U Methamphetamines Scrn Not Detected (NotDetected) U Benzodiazepines Scrn Detected H (NotDetected) Urine Cocaine Screen Not Detected (NotDetected) U Marijuana (THC) Screen Not Detected (NotDetected) Influenza Type A (PCR) Not Detected (Not Detectd) Influenza Type B (PCR) Not Detected (Not Detectd) RSV (PCR) Not Detected (Not Detectd) SARS-CoV-2 (PCR) Not Detected (Not Detectd) - Radiology Data Radiology results: report reviewed, image reviewed Disposition Clinical Impression: Change in behavior Disposition: HOME SELF-CARE Instructions (If sedation given, give patient instructions): Altered Mental Status (ED) Additional Instructions: Return to the emergency department with any new, worsening, or concerning sympt oms. Follow up with your primary care provider in 1-2 days. Is patient prescribed a controlled substance at d/c from ED?: No Referrals: Mario Torre MD [Primary Care Provider] - 1-2 days Time of Disposition: 11:44
[2024-09-27 10:22] LABS: Basophils % (A) 0 %; Eosinophils % (A) 1 %; HGB 13.8 gm/dL (11.4-16.0); Lymphocytes # (A) 0.5 k/uL (1.0-4.8); Lymphocytes % (A) 8 %; MCH 30.8 pg (25.0-35.0); MCHC 33.6 g/dL (31.0-37.0); MCV 91.8 fL (80.0-100.0); Mean Platelet Volume 7.2; Monocytes # (A) 0.6 k/uL (0-1.0); Monocytes % (A) 11 %; Neutrophils # (A) 4.7 k/uL (1.3-7.7); Neutrophils % (A) 78 %; Platelet Count 184 k/uL (150-450); RBC 4.47 m/uL (3.80-5.40)
[2024-09-27 10:32] LABS: INR 1.1 (<1.2); Partial Thromboplastin Time 25.7 sec (22.0-30.0); Prothrombin Time 11.9 sec (10.0-12.5)
[2024-09-27 10:36] LABS: ALT 11 U/L (4-34); African American GFR (CKD) >90 (>60 ml/min/1.73 sqM); Albumin 3.9 g/dL (3.5-5.0); Anion Gap 5 mmol/L; Blood Urea Nitrogen 16 mg/dL (7-17); Calcium 8.8 mg/dL (8.4-10.2); Carbon Dioxide 29 mmol/L (22-30); Chloride 99 mmol/L (98-107); Glucose 94 mg/dL (74-99); Non-African American GFR(CKD) 81 (>60 ml/min/1.73 sqM); Sodium 133 mmol/L (137-145); Total Bilirubin 0.9 mg/dL (0.2-1.3)
[2024-09-27 10:40] LABS: AST 23 U/L (14-36); Alkaline Phosphatase 37 U/L (38-126); Potassium 4.8 mmol/L (3.5-5.1)
[2024-09-27 11:09] LABS: Appearance,Urine Clear (Clear); Bilirubin,Urine Negative (Negative); Blood,Urine Negative (Negative); Color,Urine Light Yellow; Glucose,Urine (UA) Negative (Negative); Ketones,Urine Negative (Negative); Leukocyte Esterase,Urine Negative (Negative); Nitrite,Urine Negative (Negative); Protein,Urine Negative (Negative); Specific Gravity,Urine 1.011 (1.001-1.035); Urobilinogen,Urine <2.0 mg/dL (<2.0)
--- NOTE | 2024-09-27 11:11 | XR ---
EXAMINATION TYPE: XR chest 2V DATE OF EXAM: 09/27/2024 11:05 AM COMPARISON: 01/30/2022 CLINICAL INDICATION: Female, 74 years old with history of altered mental status, TECHNIQUE: XR chest 2V view(s) obtained. FINDINGS: The heart size is enlarged. The pulmonary vasculature is normal. The lungs are clear. Sternotomy wires from prior surgery are evident IMPRESSION: 1. No acute pulmonary process. 2. Cardiomegaly [facility], , 09/27/2024 11:08 AM
--- NOTE | 2024-09-27 11:11 | CT ---
EXAMINATION TYPE: CT brain wo con CT DLP: 1095.1 mGycm, Automated exposure control for dose reduction was used. DATE OF EXAM: 09/27/2024 11:01 AM COMPARISON: Prior CT Brain from 01/30/2022, 10/21/2020, 02/16/2020 . CLINICAL INDICATION:Female, 74 years old with history of Altered mental status, AMS TECHNIQUE: Brain: Multiple axial CT images of the brain were obtained without IV contrast. . Coronal and sagitta l reformats reviewed. FINDINGS: Brain: Extra-axial spaces: No abnormal extra-axial fluid collections. Ventricular system: Within normal limits Cerebral parenchyma: Appropriate cerebral volume loss. No acute intraparenchymal hemorrhage or mass e ffect. The lozano-white junction is well differentiated. Cerebellum: Atrophy of the bilateral cerebellum. Mass effect: No evidence of midline shift. Intracranial vasculature: Atherosclerotic calcifications of the intracranial vessels. Soft tissues: Normal. Calvarium/osseous structures: No depressed skull fracture. Benign hyperostosis frontalis noted. Paranasal sinuses and mastoid air cells: The mastoid air cells are clear. 6 mm mucus retention cyst w ithin the left sphenoid sinus. The remaining paranasal sinuses are clear. Visualized orbits: Orbital contents are intact. IMPRESSION: 1. No acute intracranial process. 2. Similar atrophy which is greatest within the cerebellum. [facility], , 09/27/2024 11:09 AM
[2024-09-27 11:22] LABS: Amphetamine Screen,Urine Not Detected (NotDetected); Barbiturate Screen,Urine Not Detected (NotDetected); Benzodiazepines Screen,Urine Detected (NotDetected); Cocaine Screen,Urine Not Detected (NotDetected); Methadone Screen, Urine Not Detected (NotDetected); Opiate Screen,Urine Not Detected (NotDetected); Oxycodone Screen, Urine Not Detected (NotDetected); Phencyclidine Screen,Urine Not Detected (NotDetected); Tricyclic Antidepressant,Urine Not Detected (NotDetected); Urn Cannabinoid Scrn Not Detected (NotDetected)
[2024-09-27] MEDS: SODIUM CHLORIDE 0.9% 500 ML 500 ML IV ONE (11:29)
[2024-09-27 12:46] VITALS: BP 149/89; RESP 21; TEMP 98.1
== END 2024-09-27 13:27 | disposition home or self-care (01) ==
LOC: EC 09:21
DX: R46.89 Other symptoms and signs involving appearance and behavior (principal); Z88.0 Allergy status to penicillin; Z88.2 Allergy status to sulfonamides; Z11.52 Encounter for screening for COVID-19
CPT/HCPCS: 36415; 70450; 71046; 80053; 80306; 81003; 85025; 85610; 85730; 87636; 93005; 96360; 99285

== ENCOUNTER 2024-11-11 11:52 | Observation (INO) | payer MEDICARE ==
--- NOTE | 2024-11-11 12:35 | XR ---
EXAMINATION TYPE: XR chest 1V portable DATE OF EXAM: 11/11/2024 12:14 PM COMPARISON: Chest radiographs from 09/01/2024 CLINICAL INDICATION: Female, 74 years old with history of n/v/weakness; [facility] TECHNIQUE: XR chest 1V portable Frontal view of the chest. FINDINGS: Lungs/Pleura: Increased airspace opacities in the right middle lobe suggested with obscuration right heart border. There is no evidence of pleural effusion, focal consolidation, or pneumothorax. Pulmonary vascularity: Unremarkable. Heart/mediastinum: Cardiomediastinal silhouette is enlarged and stable. Atherosclerotic calcificatio ns are seen in the aorta. Left atrial appendage occlusion device is present. Musculoskeletal: No acute osseous pathology. Midline sternotomy wires are noted. IMPRESSION: Right middle lobe airspace opacities may be present correlate fore pneumonia [facility], , 11/11/2024 12:33 PM
[2024-11-11 12:42] LABS: Basophils % (A) 0 %; Eosinophils % (A) 0 %; HCT 43.8 % (34.0-46.0); HGB 14.7 gm/dL (11.4-16.0); Lymphocytes # (A) 0.1 k/uL (1.0-4.8); Lymphocytes % (A) 1 %; MCH 31.2 pg (25.0-35.0); MCHC 33.6 g/dL (31.0-37.0); MCV 92.9 fL (80.0-100.0); Mean Platelet Volume 8.3; Monocytes # (A) 0.5 k/uL (0-1.0); Monocytes % (A) 4 %; Neutrophils # (A) 10.3 k/uL (1.3-7.7); Neutrophils % (A) 94 %; Platelet Count 176 k/uL (150-450); RBC 4.72 m/uL (3.80-5.40); RDW 13.7 % (11.5-15.5)
[2024-11-11] MEDS: SODIUM CHLORIDE 0.9% 1,000 ML IV STA ×2 (12:53→12:54)
[2024-11-11] MEDS: ONDANSETRON 4 MG/2 ML VIAL IVP STA (12:53)
[2024-11-11 12:54] LABS: ALT 12 U/L (4-34); AST 20 U/L (14-36); African American GFR (CKD) >90 (>60 ml/min/1.73 sqM); Albumin 4.4 g/dL (3.5-5.0); Alkaline Phosphatase 49 U/L (38-126); Anion Gap 8 mmol/L; Blood Urea Nitrogen 29 mg/dL (7-17); Calcium 9.1 mg/dL (8.4-10.2); Carbon Dioxide 24 mmol/L (22-30); Chloride 105 mmol/L (98-107); Glucose 129 mg/dL (74-99); Magnesium 1.8 mg/dL (1.6-2.3); Non-African American GFR(CKD) 89 (>60 ml/min/1.73 sqM); Potassium 4.7 mmol/L (3.5-5.1); Sodium 137 mmol/L (137-145); Total Bilirubin 0.8 mg/dL (0.2-1.3); Total Protein 6.7 g/dL (6.3-8.2)
[2024-11-11 12:55] LABS: Partial Thromboplastin Time 23.7 sec (22.0-30.0); Prothrombin Time 11.3 sec (10.0-12.5)
[2024-11-11] MEDS ORDERED: IPRATROPIUM-ALBUTEROL 3 ML NEB INHALATION PRN (12:55)
[2024-11-11] MEDS ORDERED: PNEUMONIA PROTOCOL UTILIZED 1 EACH MISC PO PRN (12:55)
[2024-11-11 13:12] LABS: Influenza A Not Detected (Not Detectd); Influenza B Not Detected (Not Detectd); RSV Not Detected (Not Detectd)
--- NOTE | 2024-11-11 13:21 | ED ---
General Adult HPI - General Source: patient, family, EMS, RN notes reviewed, old records reviewed Mode of arrival: EMS Limitations: altered mental status <Pino Wadsworth - Last Filed: 11/11/24 15:27> <Megan Sher - Last Filed: 11/11/24 17:26> - General Chief complaint: Nausea/Vomiting/Diarrhea Stated complaint: Flu like symptom Time Seen by Provider: 11/11/24 11:55 - History of Present Illness Initial comments: Patient is a 74-year-old female who presents emergency department complaining of nausea, vomiting, diarrhea, weakness. Patient has a history of dementia. Has flulike symptoms for a few days. Presents from nursing facility where her friend has similar complaints. She is normally pleasantly confused however has had decreased talking today. Seems to be off her baseline. Denies any pain. Presents for further evaluation. (Pino Wadsworth) - Related Data Home Medications Medication Instructions Recorded Confirmed Metoprolol Succinate [Toprol XL] 25 mg PO DAILY@79902/16/20 11/11/24 ALPRAZolam [Xanax] 0.5 mg PO BID PRN 09/27/24 11/11/24 Acetaminophen Tab [Tylenol] 650 mg PO Q4H PRN 09/27/24 11/11/24 Acetaminophen [Tylenol Arthritis] 650 mg PO BID@799,199909/27/24 11/11/24 Donepezil [Aricept] 10 mg PO DAILY@0800 09/27/24 11/11/24 Ergocalciferol [Vitamin D2 (1250 1,250 mcg PO MO@79909/27/24 11/11/24 Mcg = 99971 Iu)] Escitalopram [Lexapro] 20 mg PO DAILY@0800 09/27/24 11/11/24 Loperamide HCl [Loperamide] 2 mg PO QID PRN 09/27/24 11/11/24 Loperamide [Imodium] 4 mg PO DAILY@79909/27/24 11/11/24 Melatonin 5 mg PO HS@199909/27/24 11/11/24 Memantine [Namenda] 5 mg PO BID@0800,199909/27/24 11/11/24 Multivitamins, Thera [Multivitamin 1 tab PO DAILY@0809/27/2425 (formulary)] Oxybutynin Xl [Ditropan XL] 5 mg PO HS@199909/27/24 11/11/24 Sennosides/Docusate Sodium [Senna 2 tab PO HS@199909/27/24 11/11/24 Plus 8.6-50 mg Tablet] Tolnaftate [Tolnaftate 1%] 1 applic TOPICAL BID PRN 09/27/24 11/11/24 Allergies Allergy/AdvReac Type Severity Reaction Status Date / Time Penicillins Allergy Unknown Verified 11/11/24 14:10 Sulfa (Sulfonamide Allergy Rash/Hives Verified 11/11/24 14:10 Antibiotics) Review of Systems ROS Other: All systems not noted in ROS Statement are negative. <Pino Wadsworth - Last Filed: 11/11/24 15:27> ROS Other: All systems not noted in ROS Statement are negative. <Megan Sher - Last Filed: 11/11/24 17:26> ROS Statement: Those systems with pertinent positive or pertinent negative responses have been documented in the HPI. Review of Systems: CONST: Denies fever EYES: Denies blurry vision ENT: Denies nasal congestion C/V: Denies Chest pain RESP: Denies shortness of breath GI: Denies abdominal pain : Denies dysuria SKIN: Denies rash. MSK: Denies joint pain. NEURO: Denies headache (Pino Wadsworth) Past Medical History Past Medical History: Atrial Fibrillation Additional Past Medical History / Comment(s): Shingles 10/2016 History of Any Multi-Drug Resistant Organisms: None Reported Past Surgical History: Cardiac Valve Replacement, Joint Replacement Additional Past Surgical History / Comment(s): Left hip replacement. Past Psychological History: No Psychological Hx Reported Smoking Status: Never smoker Past Alcohol Use History: None Reported Past Drug Use History: None Reported <Pino Wadsworth - Last Filed: 11/11/24 15:27> General Exam Limitations: altered mental status <Pino Wadsworth - Last Filed: 11/11/24 15:27> - General Exam Comments Initial Comments: General: Appears in no acute distress. HEAD: Normal with no signs of head trauma. EYES: PERRLA, EOMI, conjunctiva normal, no discharge. ENT: Hearing grossly intact, normal oropharynx. Dry mucous membranes RESPIRATORY: Clear breath sounds bilaterally. No wheezes, rales, or rhonchi. C/V: Regular rate and rhythm. S1 and S2 auscultated, no edema, peripheral pulses 2+ and intact throughout ABD: Abd is soft, nontender, nondistended EXT: Normal range of motion, no obvious deformity SKIN: No rashes or lesions observed on exposed skin. NEURO: Alert and oriented x 1-2 which appears to be may be close to the baseline for the patient however slightly below. No focal deficits appreciated. (Pino Wadsworth) Course Vital Signs 11/11/24 11/11/24 11/11/24 11:55 12:30 13:00 Temperature 98.2 F Pulse Rate 69 66 68 Respiratory 14 24 16 Rate Blood Pressure 121/58 121/58 117/63 O2 Sat by Pulse 98 97 97 Oximetry 11/11/24 11/11/24 11/11/24 13:30 14:00 14:30 Temperature Pulse Rate 89 70 73 Respiratory 19 20 18 Rate Blood Pressure 98/61 118/68 117/69 O2 Sat by Pulse 99 96 Oximetry Medical Decision Making - Lab Data Result diagrams: 11/11/24 12:19 11/11/24 12:19 - EKG Data -: EKG Interpreted by Wi <Pino Wadsworth - Last Filed: 11/11/24 15:27> - Lab Data Result diagrams: 11/11/24 12:19 11/11/24 12:19 <Megan Sher - Last Filed: 11/11/24 17:26> - Medical Decision Making Was pt. sent in by a medical professional or institution (, PA, ROASTMASTER, urgent care, hospital, or usp...) When possible be specific @ -Sent by nursing facility over concern for infection Did you speak to anyone other than the patient for history (EMS, parent, family, police, friend...)? What history was obtained from this source @ -Spoke with patient's power of immigration attorney, Maria Teresa Redmond who consented to care as well as was in agreement with plan for admission. Did you review nursing and triage notes (agree or disagree)? Why? @ -I reviewed and agree with nursing and triage notes Were old charts reviewed (outside hosp., previous admission, EMS record, old EKG, old radiological studies, urgent care reports/EKG's, usp records)? Report findings @ -No old charts were reviewed Differential Diagnosis (chest pain, altered mental status, abdominal pain women, abdominal pain men, vaginal bleeding, weakness, fever, dyspnea, syncope, headache, dizziness, GI bleed, back pain, seizure, CVA, palpatations, mental health, musculoskeletal)? @ -Differential Weakness: Hypoglycemia, shock, sepsis, hyponatremia, anemia, infection, MS, ETOH, adverse medicine reaction, overdose, stroke, this is not meant to be an all-inclusive list. EKG interpreted by me (3pts min.). @ -As above X-rays interpreted by me (1pt min.). @ -Chest x-ray shows right middle airspace opacities concerning for pneumonia CT interpreted by me (1pt min.). @ -Pending U/S interpreted by me (1pt. min.). @ -None done What testing was considered but not performed or refused? (CT, X-rays, U/S, labs)? Why? @ -None What meds were considered but not given or refused? Why? @ -None Did you discuss the management of the patient with other professionals (professionals i.e. , PA, ROASTMASTER, lab, RT, psych nurse, director social, rest room attendant, teacher, county health officer, foster care case manager)? Give summary @ -No Was smoking cessation discussed for >3mins.? @ -No Was critical care preformed (if so, how long)? @ -No Were there social determinants of health that impacted care today? How? (Homelessness, low income, unemployed, alcoholism, drug addiction, t ransportation, low edu. Level, literacy, decrease access to med. care, group home, rehab)? @ -No Was there de-escalation of care discussed even if they declined (Discuss DNR or withdrawal of care, Hospice)? DNR status @ -Confirmed DNR status with patient's power of immigration attorney, Maria Teresa. What co-morbidities impacted this encounter? (DM, HTN, Smoking, COPD, CAD, Cancer, CVA, ARF, Chemo, Hep., AIDS, mental health diagnosis, sleep apnea, morbid obesity)? @ -Dementia, atrial fibrillation Was patient admitted / discharged? Hospital course, mention meds given and route, prescriptions, significant lab abnormalities, going to OR and other pertinent info. @ -Presents with nausea, vomiting, diarrhea. Sick contacts at her usp as well. More confused and weak than baseline. We will obtain generalized infectious workup. Patient agreement this plan. Vital signs within acceptable limits. She is given IV fluids. Laboratory studies are within acceptable limits except for slight leukocytosis of 11.0. Viral swabs negative. Urinalysis pending. Chest x-ray does show right-sided pneumonia patient was started on azithromycin and Rocephin. Blood cultures obtained and sent. Patient's CT brain as well as CT abdomen pelvis are pending at this time. Patient signed out to Dr. Sher pending results of CT imaging. Patient will be admitted following CT imaging. Discussed with patient's power of immigration attorney, Maria Teresa who was in agreement with the plan. Undiagnosed new problem with uncertain prognosis? @ -No Drug Therapy requiring intensive monitoring for toxicity (Heparin, Nitro, Insulin, Cardizem)? @ -No Were any procedures done? @ -No Diagnosis/symptom? @ -Weakness, pneumonia Acute, or Chronic, or Acute on Chronic? @ -Acute Uncomplicated (without systemic symptoms) or Complicated (systemic symptoms)? @ -Complicated Side effects of treatment? @ -No Exacerbation, Progression, or Severe Exacerbation? @ -No Poses a threat to life or bodily function? How? (Chest pain, USA, MS, pneumonia, PE, COPD, DKA, ARF, appy, cholecystitis, CVA, Diverticulitis, Homicidal, Suicidal, threat to staff... and all critical care pts) @ -Yes (Pino Wadsworth) Was patient admitted / discharged? Hospital course, mention meds given and route, prescriptions, significant lab abnormalities, going to OR and other pertinent info. @ -Patient signed out to me from Dr. Wadsworth awaiting CT reads. CT abdomen and pelvis are negative. CT brain is negative. Patient does have pneumonia on chest x-ray. Awaiting urine. Patient was bladder scanned. Dr. Wadsworth already ordered antibiotics. She will be admitted. Spoke with Dr. Fischer for admission Undiagnosed new problem with uncertain prognosis? @ -No Drug Therapy requiring intensive monitoring for toxicity (Heparin, Nitro, Insulin, Cardizem)? @ -No Were any procedures done? @ -No Diagnosis/symptom? @ -Acute encephalopathy, acute nausea, vomiting, diarrhea, pneumonia Acute, or Chronic, or Acute on Chronic? @ -Acute Uncomplicated (without systemic symptoms) or Complicated (systemic symptoms)? @ -Complicated Side effects of treatment? @ -No Exacerbation, Progression, or Severe Exacerbation? @ -No Poses a threat to life or bodily function? How? (Chest pain, USA, MS, pneumonia, PE, COPD, DKA, ARF, appy, cholecystitis, CVA, Diverticulitis, Homicidal, Suicidal, threat to staff... and all critical care pts) @ -No (Megan Sher) - Lab Data Lab Results 11/11/24 11/11/24 11/11/24 Range/Units 12:19 12:19 12:19 WBC 11.0 H (3.8-10.6) k/uL RBC 4.72 (3.80-5.40) m/uL Hgb 14.7 (11.4-16.0) gm/dL Hct 43.8 (34.0-46.0) % MCV 92.9 (80.0-100.0) fL MCH 31.2 (25.0-35.0) pg MCHC 33.6 (31.0-37.0) g/dL RDW 13.7 (11.5-15.5) % Plt Count 176 (150-450) k/uL MPV 8.3 Neutrophils % 94 % Lymphocytes % 1 % Monocytes % 4 % Eosinophils % 0 % Basophils % 0 % Neutrophils # 10.3 H (1.3-7.7) k/uL Lymphocytes # 0.1 L (1.0-4.8) k/uL Monocytes # 0.5 (0-1.0) k/uL Eosinophils # 0.0 (0-0.7) k/uL Basophils # 0.0 (0-0.2) k/uL PT 11.3 (10.0-12.5) sec INR 1.0 (<1.2) APTT 23.7 (22.0-30.0) sec Sodium 137 (137-145) mmol/L Potassium 4.7 (3.5-5.1) mmol/L Chloride 105 (98-107) mmol/L Carbon Dioxide 24 (22-30) mmol/L Anion Gap 8 mmol/L BUN 29 H (7-17) mg/dL Creatinine 0.64 (0.52-1.04) mg/dL Est GFR (CKD-EPI)AfAm >90 (>60 ml/min/1.73 sqM) Est GFR (CKD-EPI)NonAf 89 (>60 ml/min/1.73 sqM) Glucose 129 H (74-99) mg/dL Plasma Lactic Acid Karel (0.7-2.0) mmol/L Calcium 9.1 (8.4-10.2) mg/dL Magnesium 1.8 (1.6-2.3) mg/dL Total Bilirubin 0.8 (0.2-1.3) mg/dL AST 20 (14-36) U/L ALT 12 (4-34) U/L Alkaline Phosphatase 49 (38-126) U/L Total Protein 6.7 (6.3-8.2) g/dL Albumin 4.4 (3.5-5.0) g/dL Influenza Type A (PCR) (Not Detectd) Influenza Type B (PCR) (Not Detectd) RSV (PCR) (Not Detectd) SARS-CoV-2 (PCR) (Not Detectd) 11/11/24 11/11/24 Range/Units 12:19 12:19 WBC (3.8-10.6) k/uL RBC (3.80-5.40) m/uL Hgb (11.4-16.0) gm/dL Hct (34.0-46.0) % MCV (80.0-100.0) fL MCH (25.0-35.0) pg MCHC (31.0-37.0) g/dL RDW (11.5-15.5) % Plt Count (150-450) k/uL MPV Neutrophils % % Lymphocytes % % Monocytes % % Eosinophils % % Basophils % % Neutrophils # (1.3-7.7) k/uL Lymphocytes # (1.0-4.8) k/uL Monocytes # (0-1.0) k/uL Eosinophils # (0-0.7) k/uL Basophils # (0-0.2) k/uL PT (10.0-12.5) sec INR (<1.2) APTT (22.0-30.0) sec Sodium (137-145) mmol/L Potassium (3.5-5.1) mmol/L Chloride (98-107) mmol/L Carbon Dioxide (22-30) mmol/L Anion Gap mmol/L BUN (7-17) mg/dL Creatinine (0.52-1.04) mg/dL Est GFR (CKD-EPI)AfAm (>60 ml/min/1.73 sqM) Est GFR (CKD-EPI)NonAf (>60 ml/min/1.73 sqM) Glucose (74-99) mg/dL Plasma Lactic Acid Karel 1.4 (0.7-2.0) mmol/L Calcium (8.4-10.2) mg/dL Magnesium (1.6-2.3) mg/dL Total Bilirubin (0.2-1.3) mg/dL AST (14-36) U/L ALT (4-34) U/L Alkaline Phosphatase (38-126) U/L Total Protein (6.3-8.2) g/dL Albumin (3.5-5.0) g/dL Influenza Type A (PCR) Not Detected (Not Detectd) Influenza Type B (PCR) Not Detected (Not Detectd) RSV (PCR) Not Detected (Not Detectd) SARS-CoV-2 (PCR) Not Detected (Not Detectd) - EKG Data EKG Comments: 12-lead Electrocardiogram Interpretation Note EKG was reviewed and interpreted by myself. 12-lead ECG performed at 1213 is interpreted by me as revealing normal sinus rhythm at a rate of 69 beats per minute. Left axis deviation. NE interval is 115 ms, QRS duration is 138 ms, QTc is 477 ms. There were no ST or T wave abnormalities to suggest myocardial ischemia or injury. R wave progression across the precordium was satisfactory. By my interpretation this EKG is non-diagnostic for acute ischemia. (Pino Wadsworth) Disposition <Pino Wadsworth - Last Filed: 11/11/24 15:27> Is patient prescribed a controlled substance at d/c from ED?: No Time of Disposition: 17:13 Decision to Admit Reason: Admit from EC Decision Date: 11/11/24 Decision Time: 17:13 <Megan Sher - Last Filed: 11/11/24 17:26> Clinical Impression: Weakness, Pneumonia Disposition: ADMITTED IP TO THIS HOSP Condition: Stable Referrals: Mario Torre MD [Primary Care Provider] - 1-2 days
[2024-11-11] MEDS: AZITHROMYCIN 500 MG in SODIUM CHLORIDE 0.9% 250 ML IVPB STA (15:37)
--- NOTE | 2024-11-11 15:54 | CT ---
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 PT UNAB LE TO LAY STILL CT DLP: 2748.6 mGycm Automated exposure control for dose reduction was used. Findings: The ventricles, basal cisterns and sulci over the convexities are mildly enlarged consistent mild gen eralized age-appropriate atrophy. There is no mass effect or shift of the midline structures. There is no acute intra or extra-axial hemorrhage. The posterior fossa including the brainstem, fourth ventricle and cerebellar pontine angles appear no rmal. Intraorbital contents appear normal and symmetric. Visualized paranasal sinuses and mastoid air cells are well aerated. The calvarium is intact. IMPRESSION: 1. No acute bleed or mass effect. 2. Mild age-appropriate atrophy. [facility], , 11/11/2024 3:52 PM
--- NOTE | 2024-11-11 16:01 | CT ---
EXAMINATION TYPE: CT abdomen pelvis w con DATE OF EXAM: 11/11/2024 COMPARISON: 08/07/2017 CLINICAL INDICATION: Female, 74 years old with history of n/v/d; PHH, N,V,D AND AMS. TECHNIQUE: Performed without Oral Contrast and with IV Contrast, patient injected with 80ml mL of Isovue 300. CT DLP: [address] CTDI: mGy Automated exposure control for dose reduction was used. FINDINGS: There are small primarily interstitial densities in the lung bases which could represent interstitial scarring or atelectasis. There is a small left pleural effusion. The heart size is prominent. The gallbladder is normal without distention, wall thickening, pericholecystic fluid or gallstones. S table intra and extra hepatic biliary ductal dilatation. There is no focal mass within the liver pancreas or spleen but there is hepatomegaly. The liver is 20 cm in craniocaudal length. There is no solid renal mass or hydronephrosis and there is homogeneous contrast enhancement of the r enal parenchyma. The caliber the abdominal aorta is normal is no retroperitoneal adenopathy or hemorr pablo. The bowel loops are normal in caliber and there is no evidence of dilatation or obstruction. No infla mmatory changes are identified in the bowel wall or mesentery. There is no free intraperitoneal air or fluid. No pelvic mass, free fluid, abscess or adenopathy. There is a left hip prosthesis. There is marked S-shaped scoliosis of the thoracolumbar spine. IMPRESSION: 1. No acute changes within the abdomen or pelvis. 2. Hepatomegaly and stable mild intrahepatic and extra hepatic biliary ductal dilatation. 3. Marked S-shaped scoliosis of the thoracolumbar spine and left hip prosthesis. 4. No definite acute changes within the abdomen or pelvis. [facility], , 11/11/2024 3:59 PM
[2024-11-11] MEDS ORDERED: NALOXONE 0.4 MG/ML 1 ML VIAL IV PRN (17:13)
[2024-11-11] MEDS ORDERED: ACETAMINOPHEN TAB 325 MG TAB PO PRN (17:13)
--- NOTE | 2024-11-11 20:45 | P.HPIM ---
History of Present Illness H&P Date: 11/11/24 Chief Complaint: Nausea vomiting diarrhea 74-year-old patient, follows with visiting physicians Dr. Watson. Medical history includes atrial fibrillation, osteoarthritis, urinary incontinence, some dementia depression. Patient is assisted living [facility]. Patient is very lethargic not really able to give any history. Keeps dozing off. As per the EMS report patient was seen by the PCP for having nausea vomiting diarrhea the whole day. Patient normally talkative and communicates. Very lethargic today. Hence sent down to the ER. Patient tested negative for influenza, COVID, RSV. Started in the ER for IV ceftriaxone for possible infiltrate on x-ray. Review of systems: Unable to obtain patient very lethargic Social history: No reported history of smoking alcohol. Resident of [facility] Physical examination: VITAL SIGNS: 98.2, 69, 14, 121 x 58, 98% room air GENERAL: BMI 20.8, laying in bed, lethargic arousable but dozes off. EYES: Pupils equal. Conjunctiva aron l. HEENT: External appearance of nose and ears normal, oral cavity dry mucous membrane. NECK: JVD unable to assess; masses not palpable. HEART: First and second heart sounds are normal; no edema. LUNGS: Respiratory rate increased l; decreased breath sounds. ABDOMEN: Soft, nontender, liver spleen not palpable, no masses palpable. PSYCH: Lethargic not really answering questions l. MUSCULOSKELETAL:No Clubbing/cyanosis;muscles-grossly intact. OA in many joints NEUROLOGICAL: Cranial nerves grossly intact; no facial asymmetry, power and sensation grossly intact. LYMPHATICS: No lymph nodes palpable in the axilla and neck INVESTIGATIONS, reviewed in the clinical context: November 11, 2024: White count 11 hemoglobin 14.7 platelets 176 sodium 137 potassium 4.7 BUN 29 creatinine 0.64 Influenza type A, type B, RSV, COVID-19: Not detected Chest x-ray film personally reviewed by me-right basilar infiltrate EKG tracing personally reviewed by me-sinus rhythm. Nonspecific ST-T wave changes CT scan brain without contrast: Age-related changes CT abdomen pelvis: Hepatomegaly. Mild S-shaped scoliosis of thoracolumbar spine left hip prosthesis. Assessment plan: -Acute metabolic encephalopathy resulting from possibly a viral infection. Patient over 24 hours been having nausea vomiting diarrhea. At the baseline patient normally talkative and converses. -Right basal pneumonia suspect gram-negative organism IV ceftriaxone -Acute viral syndrome causing nausea vomiting diarrhea, possibly viral gastroenteritis Symptomatic treatment with IV fluids -Cognitive impairment Patient takes Namenda and Aricept -Depression Lexapro 20 mg a day -Primary osteoarthritis Tylenol as needed -Chronic insomnia Melatonin 5 mg nightly -Chronic urinary incontinence Ditropan XL 5 mg nightly -DNR Patient significantly encephalopathic from a baseline. Not able to communicate. Given the complexity and severity of patient's condition expect the patient to be in the hospital at least for 2 overnights Past Medical History Past Medical History: Atrial Fibrillation Additional Past Medical History / Comment(s): Nas 10/2016 History of Any Multi-Drug Resistant Organisms: None Reported Past Surgical History: Cardiac Valve Replacement, Joint Replacement Additional Past Surgical History / Comment(s): Left hip replacement. Past Psychological History: No Psychological Hx Reported Smoking Status: Never smoker Past Alcohol Use History: None Reported Past Drug Use History: None Reported Medications and Allergies Home Medications Medication Instructions Recorded Confirmed Type Metoprolol Succinate [Toprol XL] 25 mg PO DAILY@0802/16/20 11/11/24 History ALPRAZolam [Xanax] 0.5 mg PO BID PRN 09/27/24 11/11/24 History Acetaminophen Tab [Tylenol] 650 mg PO Q4H PRN 09/27/24 11/11/24 History Acetaminophen [Tylenol Arthritis] 650 mg PO BID@799,199909/27/24 11/11/24 History Donepezil [Aricept] 10 mg PO DAILY@79909/27/24 11/11/24 History Ergocalciferol [Vitamin D2 (1250 1,250 mcg PO MO@79909/27/24 11/11/24 History Mcg = 76272 Iu)] Escitalopram [Lexapro] 20 mg PO DAILY@0800 09/27/24 11/11/24 History Loperamide HCl [Loperamide] 2 mg PO QID PRN 09/27/24 11/11/24 History Loperamide [Imodium] 4 mg PO DAILY@0800 09/27/24 11/11/24 History Melatonin 5 mg PO HS@199909/27/24 11/11/24 History Memantine [Namenda] 5 mg PO BID@08,199909/27/24 11/11/24 History Multivitamins, Thera [Multivitamin 1 tab PO DAILY@0800 09/27/24 11/11/24 History (formulary)] Oxybutynin Xl [Ditropan XL] 5 mg PO HS@199909/27/24 11/11/24 History Sennosides/Docusate Sodium [Senna 2 tab PO HS@199909/27/24 11/11/24 History Plus 8.6-50 mg Tablet] Tolnaftate [Tolnaftate 1%] 1 applic TOPICAL BID PRN 09/27/24 11/11/24 History Allergies Allergy/AdvReac Type Severity Reaction Status Date / Time Penicillins Allergy Unknown Verified 11/11/24 14:10 Sulfa (Sulfonamide Allergy Rash/Hives Verified 11/11/24 14:10 Antibiotics) Physical Exam Vitals: Vital Signs Temp Pulse Resp BP Pulse Ox 11/11/24 18:45 79 16 137/76 93 L 11/11/24 15:00 81 16 112/70 93 L 11/11/24 14:30 73 18 117/69 11/11/24 14:00 70 20 118/68 96 11/11/24 13:30 89 19 98/61 99 11/11/24 13:00 68 16 117/63 97 11/11/24 12:30 66 24 121/58 97 11/11/24 11:55 98.2 F 69 14 121/58 98 Intake and Output 11/11/24 11/11/24 11/11/24 06:59 14:59 22:59 Other: Weight 49.895 kg Results CBC & Chem 7: 11/11/24 12:19 11/11/24 12:19 Labs: Abnormal Lab Results - Last 24 Hours (Table) 11/11/24 11/11/24 Range/Units 12:19 12:19 WBC 11.0 H (3.8-10.6) k/uL Neutrophils # 10.3 H (1.3-7.7) k/uL Lymphocytes # 0.1 L (1.0-4.8) k/uL BUN 29 H (7-17) mg/dL Glucose 129 H (74-99) mg/dL
[2024-11-11] MEDS: LACTATED RINGERS 1,000 ML IV SCH (23:37)
[2024-11-11] MEDS: ENOXAPARIN 40 MG/0.4 ML SYRINGE SQ SCH (23:37)
--- NOTE | 2024-11-12 07:58 | XR ---
EXAMINATION TYPE: XR chest 1V portable DATE OF EXAM: 11/12/2024 6:55 AM COMPARISON: Chest radiograph from one day prior. CLINICAL INDICATION: Female, 74 years old with history of pneumonia; [facility] TECHNIQUE: XR chest 1V portable Frontal view of the chest. FINDINGS: Less rotation on today's exam. Lungs/Pleura: There may remain Increased airspace opacities in the right middle lobe. There is no marko dence of pleural effusion, focal consolidation, or pneumothorax. Pulmonary vascularity: Unremarkable. Heart/mediastinum: Cardiomediastinal silhouette is enlarged and stable. Atherosclerotic calcificatio ns are seen in the aorta. Left atrial appendage occlusion device is present. Musculoskeletal: No acute osseous pathology. Midline sternotomy wires are noted. IMPRESSION: Less rotated exam, there may still be right middle lobe airspace opacities may be present correlate f ore pneumonia [facility], , 11/12/2024 7:55 AM
[2024-11-12] MEDS: ACETAMINOPHEN TAB 325 MG TAB PO SCH (09:18)
[2024-11-12] MEDS: MEMANTINE 5 MG TAB PO SCH (09:18)
[2024-11-12] MEDS: MULTIVITAMINS, THERA 1 EACH TAB PO SCH (09:19)
[2024-11-12] MEDS: ESCITALOPRAM 20 MG TAB PO SCH (09:19)
[2024-11-12] MEDS: METOPROLOL SUCCINATE (ER) 25 MG TAB.ER.24H PO SCH (09:19)
[2024-11-12] MEDS: DONEPEZIL 10 MG TAB PO SCH (09:19)
[2024-11-12] MEDS: AZITHROMYCIN 500 MG TAB PO SCH (10:12)
[2024-11-12 10:18] LABS: Basophils # (A) 0.02 X 10*3/uL (0.00-0.10); Basophils % (A) 0.3 %; Eosinophils # (A) 0.01 X 10*3/uL (0.04-0.35); Eosinophils % (A) 0.1 %; HCT 40.2 % (37.2-46.3); Lymphocytes # (A) 0.35 X 10*3/uL (0.90-5.00); Lymphocytes % (A) 5.1 %; MCH 29.9 pg (27.0-32.0); MCHC 32.3 g/dL (32.0-37.0); MCV 92.4 FL (80.0-97.0); Mean Platelet Volume 11.4 FL (9.5-12.2); Monocytes # (A) 0.98 X 10*3/uL (0.20-1.00); Monocytes % (A) 14.2 %; NRBC Per 100 WBC 0 X 10*3/uL (0.00-0.01); Neutrophils # (A) 5.52 X 10*3/uL (1.80-7.70); Neutrophils % (A) 80.2 %; Platelet Count 160 X 10*3/uL (140-440); RBC 4.35 X 10*6/uL (4.10-5.20); RDW 13.5 % (11.5-14.5); WBC 6.89 X 10*3/uL (4.50-10.00)
[2024-11-12 10:39] LABS: BUN/Creat Ratio 26.33 Ratio (12.00-20.00); Blood Urea Nitrogen 15.8 mg/dL (9.0-27.0); Calcium 8.4 mg/dL (8.7-10.3); Carbon Dioxide 20.2 mmol/L (21.6-31.8); Chloride 107 mmol/L (96-109); Glucose 98 mg/dL (70-110); Potassium 4.3 mmol/L (3.5-5.5); Sodium 140 mmol/L (135-145)
--- NOTE | 2024-11-12 16:22 | P.PN ---
Progress Note - Text Progress Note Date: 11/12/24 Chief Complaint: Nausea vomiting diarrhea 74-year-old patient, follows with visiting physicians Dr. Watson. Medical history includes atrial fibrillation, osteoarthritis, urinary incontinence, some dementia depression. Patient is assisted living [facility]. Patient is very lethargic not really able to give any history. Keeps dozing off. As per the EMS report patient was seen by the PCP for having nausea vomiting diarrhea the whole day. Patient normally talkative and communicates. Very lethargic today. Hence sent down to the ER. Patient tested negative for influenza, COVID, RSV. Started in the ER for IV ceftriaxone for possible infiltrate on x-ray. November 12: Admitted with acute metabolic encephalopathy from underlying viral infection. Also right basal pneumonia. Viral syndrome causing acute gastroenteritis. Today s sitting in bed. Awake. Answering questions. Does get confused. I was able to feed the patient about 4 teaspoons of her lunch. On IV ceftriaxone and Zithromax. Active Medications Acetaminophen (Acetaminophen Tab 325 Mg Tab) 650 mg PO Q6HR PRN PRN Reason: Mild Pain or Fever > 100.5 Acetaminophen (Acetaminophen Tab 325 Mg Tab) 650 mg PO BID@0800,1999 [facility] Last Admin: 11/12/24 09:18 Dose: 650 mg Albuterol/Ipratropium (Ipratropium-Albuterol 3 Ml Neb) 3 ml INHALATION RT-Q4H PRN PRN Reason: shortness of breath Alprazolam (Alprazolam 0.5 Mg Tab) 0.5 mg PO BID PRN PRN Reason: Anxiety Azithromycin (Azithromycin 500 Mg Tab) 500 mg PO DAILY [facility]; Protocol Stop: 11/13/24 09:01 Last Admin: 11/12/24 10:12 Dose: 500 mg Donepezil HCl (Donepezil 10 Mg Tab) 10 mg PO DAILY@0800 [facility] Last Admin: 11/12/24 09:19 Dose: 10 mg Enoxaparin Sodium (Enoxaparin 40 Mg/0.4 Ml Syringe) 40 mg SQ HS [facility] Last Admin: 11/11/24 23:37 Dose: 40 mg Escitalopram Oxalate (Escitalopram 20 Mg Tab) 20 mg PO DAILY@0800 [facility] Last Admin: 11/12/24 09:19 Dose: 20 mg Ceftriaxone Sodium 2 gm/ (Sodium Chloride) 50 mls @ 100 mls/hr IVPB Q24HR [facility]; Protocol Stop: 11/15/24 09:29 Last Admin: 11/12/24 09:21 Dose: 100 mls/hr Lactated Ringer's (Lactated Ringers) 1,000 mls @ 125 mls/hr IV .Q8H [facility] Last Admin: 11/12/24 14:39 Dose: Not Given Memantine (Memantine 5 Mg Tab) 5 mg PO BID@08,1999 [facility] Last Admin: 11/12/24 09:18 Dose: 5 mg Metoprolol Succinate (Metoprolol Succinate (Er) 25 Mg Tab.Er.24h) 25 mg PO DAILY@0800 [facility] Last Admin: 11/12/24 09:19 Dose: 25 mg Miscellaneous Information (Pneumonia Protocol Utilized 1 Each Misc) 1 each PO ONCE PRN PRN Reason: Per Protocol Multivitamins (Multivitamins, Thera 1 Each Tab) 1 each PO DAILY@0800 [facility] Last Admin: 11/12/24 09:19 Dose: 1 each Naloxone HCl (Naloxone 0.4 Mg/Ml 1 Ml Vial) 0.2 mg IV Q2M PRN PRN Reason: Opioid Reversal Oxybutynin Chloride (Oxybutynin Xl 5 Mg Tab.Er.24) 5 mg PO HS@1999 [facility] Social history: No reported history of smoking alcohol. Resident of [facility] living Physical examination: VITAL SIGNS: 98.3, 82, 17, 146 twice daily, 97% room air GENERAL: BMI 20.8, weight, reclining in bed, a bit tired EYES: Pupils equal. Conjunctiva aron l. HEENT: External appearance of nose and ears normal, oral cavity dry mucous membrane. NECK: JVD unable to assess; masses not palpable. HEART: First and second heart sounds are normal; no edema. LUNGS: Respiratory rate increased l; decreased breath sounds. ABDOMEN: Soft, nontender, liver spleen not palpable, no masses palpable. PSYCH: Answering simple questions MUSCULOSKELETAL:No Clubbing/cyanosis;muscles-grossly intact. OA in many joints NEUROLOGICAL: Cranial nerves grossly intact; no facial asymmetry, moving all 4 limbs INVESTIGATIONS, reviewed in the clinical context: November 12: White count 6.8 hemoglobin 13 potassium 4.3 creatinine 0.6 November 11, 2024: White count 11 hemoglobin 14.7 platelets 176 sodium 137 potassium 4.7 BUN 29 creatinine 0.64 Influenza type A, type B, RSV, COVID-19: Not detected Chest x-ray film personally reviewed by me-right basilar infiltrate EKG tracing personally reviewed by me-sinus rhythm. Nonspecific ST-T wave changes CT scan brain without contrast: Age-related changes CT abdomen pelvis: Hepatomegaly. Mild S-shaped scoliosis of thoracolumbar spine left hip prosthesis. Assessment plan: -Acute metabolic encephalopathy resulting from possibly a viral infection. Patient over 24 hours been having nausea vomiting diarrhea. At the baseline patient normally talkative and converses.: Better -Right basal pneumonia suspect gram-negative organism: Better IV ceftriaxone -Acute viral syndrome causing nausea vomiting diarrhea, possibly viral gastroenteritis: Improving Symptomatic treatment with IV fluids -Cognitive impairment Patient takes Namenda and Aricept -Depression Lexapro 20 mg a day -Primary osteoarthritis Tylenol as needed -Chronic insomnia Melatonin 5 mg nightly -Chronic urinary incontinence Ditropan XL 5 mg nightly -DNR For another 24 hours. Increase activity. Up in a chair. Encourage oral intake. Past Medical History Past Medical History: Atrial Fibrillation Additional Past Medical History / Comment(s): Nas 10/2016 History of Any Multi-Drug Resistant Organisms: None Reported Past Surgical History: Cardiac Valve Replacement, Joint Replacement Additional Past Surgical History / Comment(s): Left hip replacement. Past Psychological History: No Psychological Hx Reported Smoking Status: Never smoker Past Alcohol Use History: None Reported Past Drug Use History: None Reported
[2024-11-12 18:09] LABS: Appearance,Urine Clear (Clear); Bilirubin,Urine Negative (Negative); Blood,Urine Trace (Negative); Color,Urine Colorless; Glucose,Urine (UA) Negative (Negative); Ketones,Urine 1+ (Negative); Leukocyte Esterase,Urine Negative (Negative); Mucus,Urine Rare /hpf; Nitrite,Urine Negative (Negative); Protein,Urine Negative (Negative); RBC,Urine 1 /hpf (0-5); Specific Gravity,Urine 1.011 (1.001-1.035); Urobilinogen,Urine <2.0 mg/dL (<2.0); WBC,Urine 1 /hpf (0-5)
[2024-11-12] MEDS: OXYBUTYNIN XL 5 MG TAB.ER.24 PO SCH (23:34)
[2024-11-12] MEDS: ALPRAZolam 0.5 MG TAB PO PRN (23:35)
[2024-11-13 14:04] VITALS: BP 167/84; PULSE 71; RESP 17; TEMP 97.6
--- NOTE | 2024-11-13 21:13 | P.DS ---
Providers Date of admission: 11/11/24 17:15 Expected date of discharge: 11/13/24 Attending physician: Karl Fischer Primary care physician: [facility] Course: Chief Complaint: Nausea vomiting diarrhea 74-year-old patient, follows with visiting physicians Dr. Watson. Medical history includes atrial fibrillation, osteoarthritis, urinary incontinence, some dementia depression. Patient is assisted living [facility]. Patient is very lethargic not really able to give any history. Keeps dozing off. As per the EMS report patient was seen by the PCP for having nausea vomiting diarrhea the whole day. Patient normally talkative and communicates. Very lethargic today. Hence sent down to the ER. Patient tested negative for influenza, COVID, RSV. Started in the ER for IV ceftriaxone for possible infiltrate on x-ray. November 12: Admitted with acute metabolic encephalopathy from underlying viral infection. Also right basal pneumonia. Viral syndrome causing acute gastroenteritis. Today s sitting in bed. Awake. Answering questions. Does get confused. I was able to feed the patient about 4 teaspoons of her lunch. On IV ceftriaxone and Zithromax. November 13: Patient doing well. Comfortable. No fever. Recent percent room air. Will discharge back to assisted living with 3 days of Ceftin. Social history: No reported history of smoking alcohol. Resident of [facility] Physical examination: VITAL SIGNS: 97.6, 71, 17, 167 x 84, 97% room air GENERAL: BMI 20.8, weight, laying in bed, comfortable EYES: Pupils equal. Conjunctiva aron l. HEENT: External appearance of nose and ears normal, oral cavity dry mucous membrane. NECK: JVD unable to assess; masses not palpable. HEART: First and second heart sounds are normal; no edema. LUNGS: Respiratory rate increased l; decreased breath sounds. ABDOMEN: Soft, nontender, liver spleen not palpable, no masses palpable. PSYCH: Answering simple questions MUSCULOSKELETAL:No Clubbing/cyanosis;muscles-grossly intact. OA in many joints NEUROLOGICAL: Cranial nerves grossly intact; no facial asymmetry, moving all 4 limbs INVESTIGATIONS, reviewed in the clinical context: November 12: White count 6.8 hemoglobin 13 potassium 4.3 creatinine 0.6 November 11, 2024: White count 11 hemoglobin 14.7 platelets 176 sodium 137 potassium 4.7 BUN 29 creatinine 0.64 Influenza type A, type B, RSV, COVID-19: Not detected Chest x-ray film personally reviewed by me-right basilar infiltrate EKG tracing personally reviewed by me-sinus rhythm. Nonspecific ST-T wave changes CT scan brain without contrast: Age-related changes CT abdomen pelvis: Hepatomegaly. Mild S-shaped scoliosis of thoracolumbar spine left hip prosthesis. Assessment plan: -Acute metabolic encephalopathy resulting from possibly a viral infection. Patient over 24 hours been having nausea vomiting diarrhea. At the baseline patient normally talkative and converses.: Improved -Right basal pneumonia suspect gram-negative organism: Better IV ceftriaxone Discharged with Ceftin 500 twice daily for 3 days -Acute viral syndrome causing nausea vomiting diarrhea, possibly viral gastroenteritis: Improved Symptomatic treatment with IV fluids -Cognitive impairment Namenda and Aricept -Depression Lexapro 20 mg a day -Primary osteoarthritis Tylenol as needed -Chronic insomnia Melatonin 5 mg nightly -Chronic urinary incontinence Ditropan XL 5 mg nightly -DNR Disposition: Assisted living, [facility] Past Medical History Past Medical History: Atrial Fibrillation Additional Past Medical History / Comment(s): Nas 10/2016 History of Any Multi-Drug Resistant Organisms: None Reported Past Surgical History: Cardiac Valve Replacement, Joint Replacement Additional Past Surgical History / Comment(s): Left hip replacement. Past Psychological History: No Psychological Hx Reported Smoking Status: Never smoker Past Alcohol Use History: None Reported Past Drug Use History: None Reported Plan - Discharge Summary Discharge Rx Participant: Yes New Discharge Prescriptions: New cefuroxime axetiL [Ceftin] 500 mg PO BID #6 tab Continue Metoprolol Succinate [Toprol XL] 25 mg PO DAILY@0800 Loperamide HCl [Loperamide] 2 mg PO QID PRN PRN Reason: Diarrhea ALPRAZolam [Xanax] 0.5 mg PO BID PRN PRN Reason: Anxiety Oxybutynin Xl [Ditropan XL] 5 mg PO HS@2000 Memantine [Namenda] 5 mg PO BID@0800,1999 Melatonin 5 mg PO HS@2000 Loperamide [Imodium] 4 mg PO DAILY@0800 Donepezil [Aricept] 10 mg PO DAILY@0800 Acetaminophen [Tylenol Arthritis] 650 mg PO BID@0800,1999 Tolnaftate [Tolnaftate 1%] 1 applic TOPICAL BID PRN PRN Reason: antifungal Acetaminophen Tab [Tylenol] 650 mg PO Q4H PRN PRN Reason: Fever Ergocalciferol [Vitamin D2 (1250 Mcg = 89357 Iu)] 1,250 mcg PO MO@0800 Multivitamins, Thera [Multivitamin (formulary)] 1 tab PO DAILY@0800 Escitalopram [Lexapro] 20 mg PO DAILY@0800 Changed Sennosides/Docusate Sodium [Senna Plus 8.6-50 mg Tablet] 2 tab PO HS@1999 PRN #0 PRN Reason: Constipation Discharge Medication List Metoprolol Succinate [Toprol XL] 25 mg PO DAILY@0800 02/16/20 [History] ALPRAZolam [Xanax] 0.5 mg PO BID PRN 09/27/24 [History] Acetaminophen Tab [Tylenol] 650 mg PO Q4H PRN 09/27/24 [History] Acetaminophen [Tylenol Arthritis] 650 mg PO BID@799,199909/27/24 [History] Donepezil [Aricept] 10 mg PO DAILY@79909/27/24 [History] Ergocalciferol [Vitamin D2 (1250 Mcg = 99663 Iu)] 1,250 mcg PO MO@0809/27/24 [History] Escitalopram [Lexapro] 20 mg PO DAILY@0809/27/24 [History] Loperamide HCl [Loperamide] 2 mg PO QID PRN 09/27/24 [History] Loperamide [Imodium] 4 mg PO DAILY@0809/27/24 [History] Melatonin 5 mg PO HS@199909/27/24 [History] Memantine [Namenda] 5 mg PO BID@799,199909/27/24 [History] Multivitamins, Thera [Multivitamin (formulary)] 1 tab PO DAILY@79909/27/24 [History] Oxybutynin Xl [Ditropan XL] 5 mg PO HS@199909/27/24 [History] Tolnaftate [Tolnaftate 1%] 1 applic TOPICAL BID PRN 09/27/24 [History] Sennosides/Docusate Sodium [Senna Plus 8.6-50 mg Tablet] 2 tab PO HS@1999 PRN #0 11/13/24 [Rx] cefuroxime axetiL [Ceftin] 500 mg PO BID #6 tab 11/13/24 [Rx] Follow up Appointment(s)/Referral(s): Kirill Watson MD [REFERRING] - 1 Week (Office closed at time of discharge. Please call Friday morning to schedule an appointment.) Patient Instructions/Handouts: Viral Pneumonia (DC), Weakness (DC) Discharge Disposition: HOME SELF-CARE
== END 2024-11-13 14:51 | disposition home or self-care (01) ==
LOC: EC 11:52 → 1SOBS 17:14 → OBSVTOIN 17:15 → INTOOBSV 17:15 → 4SSUR 17:24
PROVIDERS: ADMIT Hospitalist; ATTEND Hospitalist
DX: B34.9 Viral infection, unspecified (principal); G93.41 Metabolic encephalopathy; J18.9 Pneumonia, unspecified organism; I48.91 Unspecified atrial fibrillation; F03.90 Unspecified dementia, unspecified severity, without behavioral disturbance, psychotic disturbance, mood disturbance, and anxiety; F32.A Depression, unspecified; M19.91 Primary osteoarthritis, unspecified site; F51.04 Psychophysiologic insomnia; R32 Unspecified urinary incontinence; Z66 Do not resuscitate; Z79.899 Other long term (current) drug therapy; Z88.0 Allergy status to penicillin; Z88.2 Allergy status to sulfonamides
CPT/HCPCS: 96366 ×2; 96372 ×2; 96361; 96365; 96367; 96375; 99285; 51798; 36415; 93005; 80053; 80048; 87449; 83605; 83735; 85025 ×2; 85610; 85730; 81001; 87040; 87636; 71045 ×2; 70450; 74177; G0378 ×3; J2405; J0456; J0696 ×3; J1650 ×2; Q9967

== ENCOUNTER 2024-11-23 18:12 | Inpatient (IN) | payer MEDICARE ==
--- NOTE | 2024-11-23 18:53 | ED ---
General Adult HPI - General Chief complaint: Recheck/Abnormal Lab/Rx Stated complaint: Lethargy Time Seen by Provider: 11/23/24 18:14 Source: patient, EMS, RN notes reviewed Mode of arrival: EMS Limitations: altered mental status - History of Present Illness Initial comments: Patient is a 74-year-old female presenting to the emergency department from [facility]. Patient reportedly has been acting lethargic. Patient states she feels fine and has no complaints. Patient is arousable to voice and then drifts back to sleep. - Related Data Home Medications Medication Instructions Recorded Confirmed Metoprolol Succinate [Toprol XL] 25 mg PO DAILY@79902/16/20 11/23/24 ALPRAZolam [Xanax] 0.5 mg PO BID PRN 09/27/24 11/23/24 Acetaminophen Tab [Tylenol] 650 mg PO Q4H PRN 09/27/24 11/23/24 Acetaminophen [Tylenol Arthritis] 650 mg PO BID@799,199909/27/24 11/23/24 Donepezil [Aricept] 10 mg PO DAILY@79909/27/24 11/23/24 Ergocalciferol [Vitamin D2 (1250 1,250 mcg PO MO@79909/27/24 11/23/24 Mcg = 65913 Iu)] Escitalopram [Lexapro] 20 mg PO DAILY@0800 09/27/24 11/23/24 Loperamide HCl [Loperamide] 2 mg PO QID PRN 09/27/24 11/23/24 Loperamide [Imodium] 4 mg PO DAILY@79909/27/24 11/23/24 Melatonin 5 mg PO HS@199909/27/24 11/23/24 Memantine [Namenda] 5 mg PO BID@08,199909/27/24 11/23/24 Multivitamins, Thera [Multivitamin 1 tab PO DAILY@00 09/27/24 11/23/24 (formulary)] Oxybutynin Xl [Ditropan XL] 5 mg PO HS@199909/27/24 11/23/24 Tolnaftate [Tolnaftate 1%] 1 applic TOPICAL BID PRN 09/27/24 11/23/24 Sennosides/Docusate Sodium [Senna 2 tab PO HS@2000 11/23/24 11/23/24 Plus 8.6-50 mg Tablet] Allergies Allergy/AdvReac Type Severity Reaction Status Date / Time Penicillins Allergy Unknown Verified 11/23/24 20:10 Sulfa (Sulfonamide Allergy Rash/Hives Verified 11/23/24 20:10 Antibiotics) Review of Systems ROS Statement: Those systems with pertinent positive or pertinent negative responses have been documented in the HPI. ROS Other: All systems not noted in ROS Statement are negative. Limitations: ROS unobtainable due to patients medical condition Past Medical History Past Medical History: Atrial Fibrillation Additional Past Medical History / Comment(s): Shingles 10/2016 History of Any Multi-Drug Resistant Organisms: None Reported Past Surgical History: Cardiac Valve Replacement, Joint Replacement Additional Past Surgical History / Comment(s): Left hip replacement. Past Psychological History: No Psychological Hx Reported Smoking Status: Never smoker Past Alcohol Use History: None Reported Past Drug Use History: None Reported General Exam Limitations: altered mental status General appearance: lethargic Head exam: Present: other (Ecchymosis right eyebrow region) Eye exam: Present: normal appearance ENT exam: Present: normal oropharynx Neck exam: Present: normal inspection. Absent: tenderness Respiratory exam: Present: normal lung sounds bilaterally Cardiovascular Exam: Present: regular rate, normal rhythm GI/Abdominal exam: Present: soft. Absent: tenderness Extremities exam: Present: normal inspection, full ROM. Absent: tenderness Neurological exam: Present: alert. Absent: motor sensory deficit Expanded Neurological exam: Present: protecting the airway Motor strength exam: RUE: 5, LUE: 5, RLE: 5, LLE: 5 Eye Response: (3) open to voice Motor Response: (5) localizes to pain Verbal Response: (4) confused conversation Skin exam: Present: normal color Course Vital Signs 11/23/24 11/23/24 11/23/24 18:17 20:08 21:01 Temperature 102.3 F H 101.5 F H 101.2 F H Pulse Rate 92 91 76 Respiratory 18 17 18 Rate Blood Pressure 124/69 141/73 127/68 O2 Sat by Pulse 96 95 93 L Oximetry EKG Findings - EKG Results: EKG: interpreted by ERMD (Left axis. LVH criteria. Q wave V2.), sinus rhythm Medical Decision Making - Medical Decision Making Was pt. sent in by a medical professional or institution (, PA, CHEMIST INSTRUMENTATION, urgent care, hospital, or assisted...) When possible be specific @ -Patient was sent by nursing facility Did you speak to anyone other than the patient for history (EMS, parent, family, police, friend...)? What history was obtained from this source @ -No Did you review nursing and triage notes (agree or disagree)? Why? @ -I reviewed and agree with nursing and triage notes Were old charts reviewed (outside hosp., previous admission, EMS record, old EKG, old radiological studies, urgent care reports/EKG's, assisted records)? Report findings @ -No old charts were reviewed Differential Diagnosis (chest pain, altered mental status, abdominal pain women, abdominal pain men, vaginal bleeding, weakness, fever, dyspnea, syncope, headache, dizziness, GI bleed, back pain, seizure, CVA, palpatations, mental health, musculoskeletal)? @ -Differential Altered Mental Status: Hypoglycemia, DKA, hypercapnia, ETOH, overdose, CO poisoning, trauma, myxedema coma, HTN encephalopathy, infection, encephalitis, psychosis, intercranial hemorrhage, hepatic encephalopathy, meningitis, CVA, this is not meant to be an all-inclusive list Differential Fever: Pneumonia, viral URI, endocarditis, myocarditis, pericarditis, otitis, sinusitis, peritonsillar Abscess, retropharyngeal Abscess, epiglottitis, perit onitis, appendicitis, Khadijah cystitis, diverticulitis, hepatitis, colitis, UTI, PID, TOA, pyelonephritis, prostatitis, epididymitis, meningitis, encephalitis, pulmonary embolism, CVA, thyroid storm, pancreatitis, adrenal crisis, cavernous sinus thrombosis, this is not meant to be an all-inclusive list. EKG interpreted by me (3pts min.). @ -As above X-rays interpreted by me (1pt min.). @ -Chest x-ray shows borderline cardiomegaly and question CHF. No definite infiltrate CT interpreted by me (1pt min.). @ -CT brain and cervical spine without acute abnormality U/S interpreted by me (1pt. min.). @ -None done What testing was considered but not performed or refused? (CT, X-rays, U/S, labs)? Why? @ -None What meds were considered but not given or refused? Why? @ -None Did you discuss the management of the patient with other professionals (professionals i.e. , PA, CHEMIST INSTRUMENTATION, lab, RT, psych nurse, vp digital marketing social media and crm, color print inspector, teacher, loss prevention officer, case supervisor)? Give summary @ -Case was discussed with Dr. Larry who will admit covering Dr. Cullen Was smoking cessation discussed for >3mins.? @ -No Was critical care preformed (if so, how long)? @ -31 minutes critical care time Were there social determinants of health that impacted care today? How? (Homelessness, low income, unemployed, alcoholism, drug addiction, transportation, low edu. Level, literacy, decrease access to med. care, penitentiary, rehab)? @ -No Was there de-escalation of care discussed even if they declined (Discuss DNR or withdrawal of care, Hospice)? DNR status @ -No What co-morbidities impacted this encounter? (DM, HTN, Smoking, COPD, CAD, Cancer, CVA, ARF, Chemo, Hep., AIDS, mental health diagnosis, sleep apnea, mo rbid obesity)? @ -None Was patient admitted / discharged? Hospital course, mention meds given and r oute, prescriptions, significant lab abnormalities, going to OR and other pertinent info. @ -Patient presents with drowsiness and fever. Etiology of fever unclear at this time. There is concern for sepsis diagnosed at 10:20 PM. Blood culture and lactic acid and IV antibiotics have all been ordered. Patient has been unable to provide urine sample. Patient was catheterized for urine however un able to obtain enough for sample. Admission orders written. Patient reevaluated. Undiagnosed new problem with uncertain prognosis? @ -No Drug Therapy requiring intensive monitoring for toxicity (Heparin, Nitro, Insulin, Cardizem)? @ -No Were any procedures done? @ -No Diagnosis/symptom? @ -Sepsis Acute, or Chronic, or Acute on Chronic? @ -Acute Uncomplicated (without systemic symptoms) or Complicated (systemic symptoms)? @ -Default Side effects of treatment? @ -No Exacerbation, Progression, or Severe Exacerbation? @ -No Poses a threat to life or bodily function? How? (Chest pain, USA, NC, pneumonia, PE, COPD, DKA, ARF, appy, cholecystitis, CVA, Diverticulitis, Homicidal, Suicidal, threat to staff... and all critical care pts) @ -Threat to multiple organs - Lab Data Result diagrams: 11/23/24 19:15 11/23/24 19:15 Lab Results 11/23/24 11/23/24 11/23/24 Range/Units 19:15 19:15 19:15 WBC 12.7 H (3.8-10.6) k/uL RBC 4.35 (3.80-5.40) m/uL Hgb 12.9 (11.4-16.0) gm/dL Hct 40.2 (34.0-46.0) % MCV 92.4 (80.0-100.0) fL MCH 29.5 (25.0-35.0) pg MCHC 32.0 (31.0-37.0) g/dL RDW 13.8 (11.5-15.5) % Plt Count 220 (150-450) k/uL MPV 8.2 Neutrophils % 88 % Lymphocytes % 3 % Monocytes % 7 % Eosinophils % 0 % Basophils % 0 % Neutrophils # 11.2 H (1.3-7.7) k/uL Lymphocytes # 0.4 L (1.0-4.8) k/uL Monocytes # 0.9 (0-1.0) k/uL Eosinophils # 0.1 (0-0.7) k/uL Basophils # 0.0 (0-0.2) k/uL PT 11.0 (10.0-12.5) sec INR 1.0 (<1.2) APTT 26.2 (22.0-30.0) sec Sodium 141 (137-145) mmol/L Potassium 4.2 (3.5-5.1) mmol/L Chloride 107 (98-107) mmol/L Carbon Dioxide 26 (22-30) mmol/L Anion Gap 8 mmol/L BUN 22 H (7-17) mg/dL Creatinine 0.68 (0.52-1.04) mg/dL Est GFR (CKD-EPI)AfAm >90 (>60 ml/min/1.73 sqM) Est GFR (CKD-EPI)NonAf 87 (>60 ml/min/1.73 sqM) Glucose 97 (74-99) mg/dL Plasma Lactic Acid Karel (0.7-2.0) mmol/L Calcium 9.2 (8.4-10.2) mg/dL Total Bilirubin 0.7 (0.2-1.3) mg/dL AST 17 (14-36) U/L ALT 11 (4-34) U/L Alkaline Phosphatase 52 (38-126) U/L Total Protein 6.3 (6.3-8.2) g/dL Albumin 4.0 (3.5-5.0) g/dL Influenza Type A (PCR) (Not Detectd) Influenza Type B (PCR) (Not Detectd) RSV (PCR) (Not Detectd) SARS-CoV-2 (PCR) (Not Detectd) 11/23/24 11/23/24 Range/Units 19:15 19:15 WBC (3.8-10.6) k/uL RBC (3.80-5.40) m/uL Hgb (11.4-16.0) gm/dL Hct (34.0-46.0) % MCV (80.0-100.0) fL MCH (25.0-35.0) pg MCHC (31.0-37.0) g/dL RDW (11.5-15.5) % Plt Count (150-450) k/uL MPV Neutrophils % % Lymphocytes % % Monocytes % % Eosinophils % % Basophils % % Neutrophils # (1.3-7.7) k/uL Lymphocytes # (1.0-4.8) k/uL Monocytes # (0-1.0) k/uL Eosinophils # (0-0.7) k/uL Basophils # (0-0.2) k/uL PT (10.0-12.5) sec INR (<1.2) APTT (22.0-30.0) sec Sodium (137-145) mmol/L Potassium (3.5-5.1) mmol/L Chloride (98-107) mmol/L Carbon Dioxide (22-30) mmol/L Anion Gap mmol/L BUN (7-17) mg/dL Creatinine (0.52-1.04) mg/dL Est GFR (CKD-EPI)AfAm (>60 ml/min/1.73 sqM) Est GFR (CKD-EPI)NonAf (>60 ml/min/1.73 sqM) Glucose (74-99) mg/dL Plasma Lactic Acid Karel 1.2 (0.7-2.0) mmol/L Calcium (8.4-10.2) mg/dL Total Bilirubin (0.2-1.3) mg/dL AST (14-36) U/L ALT (4-34) U/L Alkaline Phosphatase (38-126) U/L Total Protein (6.3-8.2) g/dL Albumin (3.5-5.0) g/dL Influenza Type A (PCR) Not Detected (Not Detectd) Influenza Type B (PCR) Not Detected (Not Detectd) RSV (PCR) Not Detected (Not Detectd) SARS-CoV-2 (PCR) Not Detected (Not Detectd) Disposition Clinical Impression: Sepsis Disposition: ADMITTED IP TO THIS HOSP Is patient prescribed a controlled substance at d/c from ED?: No Referrals: Mario Torre MD [Primary Care Provider] - 1-2 days Time of Disposition: 22:33
[2024-11-23] MEDS: LACTATED RINGERS 1,000 ML IV SCH (18:59)
[2024-11-23 19:27] LABS: Basophils % (A) 0 %; Eosinophils # (A) 0.1 k/uL (0-0.7); Eosinophils % (A) 0 %; HCT 40.2 % (34.0-46.0); HGB 12.9 gm/dL (11.4-16.0); Lymphocytes # (A) 0.4 k/uL (1.0-4.8); Lymphocytes % (A) 3 %; MCH 29.5 pg (25.0-35.0); MCV 92.4 fL (80.0-100.0); Mean Platelet Volume 8.2; Monocytes # (A) 0.9 k/uL (0-1.0); Monocytes % (A) 7 %; Neutrophils # (A) 11.2 k/uL (1.3-7.7); Neutrophils % (A) 88 %; Platelet Count 220 k/uL (150-450); RBC 4.35 m/uL (3.80-5.40); RDW 13.8 % (11.5-15.5); WBC 12.7 k/uL (3.8-10.6)
[2024-11-23 19:37] LABS: Partial Thromboplastin Time 26.2 sec (22.0-30.0)
[2024-11-23 19:43] LABS: ALT 11 U/L (4-34); AST 17 U/L (14-36); African American GFR (CKD) >90 (>60 ml/min/1.73 sqM); Alkaline Phosphatase 52 U/L (38-126); Anion Gap 8 mmol/L; Blood Urea Nitrogen 22 mg/dL (7-17); Calcium 9.2 mg/dL (8.4-10.2); Carbon Dioxide 26 mmol/L (22-30); Chloride 107 mmol/L (98-107); Glucose 97 mg/dL (74-99); Non-African American GFR(CKD) 87 (>60 ml/min/1.73 sqM); Potassium 4.2 mmol/L (3.5-5.1); Sodium 141 mmol/L (137-145); Total Bilirubin 0.7 mg/dL (0.2-1.3); Total Protein 6.3 g/dL (6.3-8.2)
[2024-11-23 20:04] LABS: Influenza A Not Detected (Not Detectd); Influenza B Not Detected (Not Detectd); RSV Not Detected (Not Detectd)
[2024-11-23] MEDS: ACETAMINOPHEN IV (For NPO) 650 MG in EMPTY BAG 1 BAG IVPB ONE (20:08)
--- NOTE | 2024-11-23 20:29 | XR ---
EXAMINATION TYPE: XR chest 2V DATE OF EXAM: 11/23/2024 8:22 PM COMPARISON: Chest radiographs from 11/12/2024 TECHNIQUE: XR chest 2V Frontal and lateral views of the chest. CLINICAL INDICATION:Female, 74 years old with history of Fever; FINDINGS: Lungs/Pleura: Trace bilateral pleural effusions. No focal consolidation. No pneumothorax. Chronic sen escent parenchymal change. Pulmonary vascularity: Pulmonary vascular congestion. Heart/mediastinum: Cardiomediastinal silhouette is enlarged and stable. Postsurgical changes of the cardiac valve. Left atrial appendage occlusion devices present. Musculoskeletal: Multiple level degenerative disc disease changes seen throughout the spine. Increase d thoracic kyphosis. Midline sternotomy wires are noted and stable. IMPRESSION: Cardiomegaly, pulmonary vascular congestion and trace bilateral pleural effusions. Correlate with BNP for congestive heart failure. [facility], , 11/23/2024 8:27 PM
--- NOTE | 2024-11-23 21:06 | CT ---
EXAMINATION TYPE: CT brain cspine wo con CT DLP: 1333.6 mGycm, Automated exposure control for dose reduction was used. DATE OF EXAM: 11/23/2024 8:49 PM COMPARISON: CT brain 11/11/2024, 09/27/2024. CLINICAL INDICATION:Female, 74 years old with history of ams; AMS, pain TECHNIQUE: Brain: Multiple axial CT images of the brain were obtained without IV contrast. Cspine: Axial CT images from the skull base to the inferior aspect of T2 we obtained without intraven ous contrast. Coronal and sagittal reformatted images were also reviewed. FINDINGS: Brain: Extra-axial spaces: No abnormal extra-axial fluid collections. Ventricular system: Within normal limits Cerebral parenchyma: Mild age-appropriate cerebral volume loss. No acute intraparenchymal hemorrhage or mass effect. The lozano-white junction is well differentiated. Cerebellum: Unremarkable. Mass effect: No evidence of midline shift. Intracranial vasculature: Atherosclerotic calcifications of the intracranial vessels. Soft tissues: Normal. Calvarium/osseous structures: No depressed skull fracture. Paranasal sinuses and mastoid air cells: Mild scattered mucosal thickening. Visualized orbits: Orbital contents are intact. Cervical spine: Fracture: None. Osseous structures: Multilevel degenerative disc disease changes with endplate spurring and disc oste ophyte complex's. Median sternotomy wires. Multilevel facet arthropathy. Vertebral alignment: Degenerative grade 1 anterolisthesis of C5 on C6. Spinal canal/Neural Foramina: Disc osteophyte complexes at C6-C7. No significant central canal stenos is identified at any cervical level. Facet joint uncovertebral joint arthropathy scattered throughout the cervical spine with varying degrees of neural foraminal stenosis. Neck soft tissues: Prevertebral soft tissues are within normal limits. Other: The airway is patent. Partial visualization of left pleural effusion IMPRESSION: 1. No acute intracranial process. 2. No evidence of cervical spine fracture. 3. Mild multilevel degenerative disc disease. [facility], , 11/23/2024 9:03 PM
[2024-11-23] MEDS: SODIUM CHLORIDE 0.9% 500 ML 500 ML IV STA (21:40)
[2024-11-23] MEDS ORDERED: ACETAMINOPHEN TAB 325 MG TAB PO PRN (22:33)
[2024-11-23] MEDS ORDERED: NALOXONE 0.4 MG/ML 1 ML VIAL IV PRN (22:33)
--- NOTE | 2024-11-24 03:25 | P.HPIM ---
History of Present Illness H&P Date: 11/23/24 History of present illness; Patient is 74-year-old female with history of A-fib (not on anticoagulation, unclear etiology), Parkinson's, dementia, depression, constipation who presents for altered mental status. Patient presents from [facility]. Patient poor historian. Per ER note, she has been reportedly lethargic compared to baseline. While speaking to the patient she states she feels well and has no complaints. She denies shortness of breath, abdominal pain, constipation, and dysuria. Spoke with the ER physician, patient admission was accepted by internal medicine service for treatment. REVIEW OF SYSTEMS: Pertinent positives and negatives noted in HPI, although limi melissa due to patient's mental status. PHYSICAL EXAMINATION: Vitals reviewed, temperature 102.3, pulse 92 GENERAL: EYES: PERRL, no scleral injection or icterus. No vision loss HENT: Normocephalic, atraumatic, hearing acuity intact, dry mucous membranes NECK: No tracheal deviation, full range of motion. CARDIOVASCULAR: S1 and S2 present. No murmurs, rubs, or gallops. PULMONARY: Chest is clear to auscultation, no wheezing, rhonchi, or crackles. ABDOMEN: Soft, nontender, nondistended. No palpable organomegaly. MUSCULOSKELETAL: No apparent joint swelling and deformities. EXTREMITIES: No apparent cyanosis, clubbing. No pedal edema. NEUROLOGICAL: Lethargic and oriented x 1 to person. Gross neurological examination with no apparent focal deficits. SKIN: No apparent rashes. ER FINDINGS: Labs significant for WBC 12.7, BUN 22, negative viral respiratory panel EKG independently interpreted showed sinus rhythm heart rate of 85, left axis deviation, no ST segment elevation or depression seen, no T-wave inversions seen. Chest x-ray done independently interpreted showed vascular congestion CT head independently interpreted showed no acute intracranial process. Urinary catheterization without output. Assessment and Plan: In summary, patient is 74-year-old female with history of A-fib, Parkinson's, dementia, depression, constipation who presents for altered mental status. #Sepsis, unclear etiology, possibly secondary to UTI #Metabolic encephalopathy, likely due to sepsis Initial WBC 12.7, temperature 102.3, pulse 92 Begin ceftriaxone 1 g IV daily Blood culture ordered UA ordered Abdominal x-ray to assess stool burden pending proBNP 4980 Continue IV LR at 130 cc/h. Judicious use due to possible fluid overload on CXR w/ elevated BNP - Obtain Echo #Anuria, likely due to dehydration Continue IV fluids as above -UA and abdominal x-ray pending Chronic Medical Conditions #A-fib - Resume home Metoprolol #Anxiety/Depression- Resume home Lexapro, Xanax #Dementiaresume home memantine #Parkinson'sresume home donepezil #Overactive bladderhold home oxybutynin DVT ppx: Subq Lovenox 40 meq daily Code status: Full code F: IV LR 130 cc/h E: Replete as needed N: Heart healthy diet Anticipated discharge place: Pending clinical course Anticipated discharge time: Pending clinical course Dictation was produced using [employer] dictation software. Please excuse any grammatical, word or spelling errors. Past Medical History Past Medical History: Atrial Fibrillation Additional Past Medical History / Comment(s): Nas 10/2016 History of Any Multi-Drug Resistant Organisms: None Reported Past Surgical History: Cardiac Valve Replacement, Joint Replacement Additional Past Surgical History / Comment(s): Left hip replacement. Past Psychological History: No Psychological Hx Reported Smoking Status: Never smoker Past Alcohol Use History: None Reported Past Drug Use History: None Reported Medications and Allergies Home Medications Medication Instructions Recorded Confirmed Type Metoprolol Succinate [Toprol XL] 25 mg PO DAILY@79902/16/20 11/23/24 History ALPRAZolam [Xanax] 0.5 mg PO BID PRN 09/27/24 11/23/24 History Acetaminophen Tab [Tylenol] 650 mg PO Q4H PRN 09/27/24 11/23/24 History Acetaminophen [Tylenol Arthritis] 650 mg PO BID@799,199909/27/24 11/23/24 History Donepezil [Aricept] 10 mg PO DAILY@79909/27/24 11/23/24 History Ergocalciferol [Vitamin D2 (1250 1,250 mcg PO MO@79909/27/24 11/23/24 History Mcg = 38235 Iu)] Escitalopram [Lexapro] 20 mg PO DAILY@0800 09/27/24 11/23/24 History Loperamide HCl [Loperamide] 2 mg PO QID PRN 09/27/24 11/23/24 History Loperamide [Imodium] 4 mg PO DAILY@0800 09/27/24 11/23/24 History Melatonin 5 mg PO HS@199909/27/24 11/23/24 History Memantine [Namenda] 5 mg PO BID@08,199909/27/24 11/23/24 History Multivitamins, Thera [Multivitamin 1 tab PO DAILY@0800 09/27/24 11/23/24 History (formulary)] Oxybutynin Xl [Ditropan XL] 5 mg PO HS@199909/27/24 11/23/24 History Tolnaftate [Tolnaftate 1%] 1 applic TOPICAL BID PRN 09/27/24 11/23/24 History Sennosides/Docusate Sodium [Senna 2 tab PO HS@199911/23/24 11/23/24 History Plus 8.6-50 mg Tablet] Allergies Allergy/AdvReac Type Severity Reaction Status Date / Time Penicillins Allergy Unknown Verified 11/23/24 20:10 Sulfa (Sulfonamide Allergy Rash/Hives Verified 11/23/24 20:10 Antibiotics) Physical Exam Vitals: Vital Signs Temp Pulse Resp BP Pulse Ox 11/23/24 21:01 101.2 F H 76 18 127/68 93 L 11/23/24 20:08 101.5 F H 91 17 141/73 95 11/23/24 18:17 102.3 F H 92 18 124/69 96 Intake and Output 11/23/24 11/23/24 11/23/24 06:59 14:59 22:59 Other: Weight 49.895 kg Results CBC & Chem 7: 11/23/24 19:15 11/23/24 19:15 Labs: Abnormal Lab Results - Last 24 Hours (Table) 11/23/24 11/23/24 Range/Units 19:15 19:15 WBC 12.7 H (3.8-10.6) k/uL Neutrophils # 11.2 H (1.3-7.7) k/uL Lymphocytes # 0.4 L (1.0-4.8) k/uL BUN 22 H (7-17) mg/dL
[2024-11-24 04:41] LABS: ALT 9 U/L (4-34); AST 19 U/L (14-36); African American GFR (CKD) >90 (>60 ml/min/1.73 sqM); Albumin 3.3 g/dL (3.5-5.0); Alkaline Phosphatase 42 U/L (38-126); Anion Gap 11 mmol/L; Blood Urea Nitrogen 19 mg/dL (7-17); Calcium 8.9 mg/dL (8.4-10.2); Carbon Dioxide 21 mmol/L (22-30); Chloride 107 mmol/L (98-107); Glucose 79 mg/dL (74-99); Non-African American GFR(CKD) >90 (>60 ml/min/1.73 sqM); Potassium 3.7 mmol/L (3.5-5.1); Sodium 139 mmol/L (137-145); Total Bilirubin 0.7 mg/dL (0.2-1.3); Total Protein 5.6 g/dL (6.3-8.2)
--- NOTE | 2024-11-24 07:00 | XR ---
EXAMINATION TYPE: XR abdomen 1V DATE OF EXAM: 11/24/2024 6:42 AM COMPARISON: None. CLINICAL INDICATION: Female, 74 years old with history of fever, TECHNIQUE: XR abdomen 1V view(s) obtained. FINDINGS: There is a normal colonic bowel gas pattern. Psoas margins are normal. No organomegaly is present. Left hip prosthesis is present. Small right pleural effusion may be present. IMPRESSION: 1. No suspicious acute changes to account for patient symptoms. [facility], , 11/24/2024 6:58 AM
[2024-11-24 07:11] LABS: Basophils % (A) 0 %; Eosinophils % (A) 0 %; HCT 40.3 % (34.0-46.0); HGB 12.3 gm/dL (11.4-16.0); Hypochromasia Slight; Lymphocytes # (A) 0.5 k/uL (1.0-4.8); Lymphocytes % (A) 4 %; MCH 28.8 pg (25.0-35.0); MCHC 30.5 g/dL (31.0-37.0); MCV 94.3 fL (80.0-100.0); Mean Platelet Volume 7.8; Monocytes % (A) 9 %; Neutrophils # (A) 9.5 k/uL (1.3-7.7); Neutrophils % (A) 84 %; Platelet Count 216 k/uL (150-450); RBC 4.27 m/uL (3.80-5.40); RDW 13.5 % (11.5-15.5); WBC 11.3 k/uL (3.8-10.6)
[2024-11-24 07:41] LABS: Amorphous Sediment,Urine Rare /hpf; Appearance,Urine Cloudy (Clear); Bacteria,Urine Occasional /hpf; Bilirubin,Urine Negative (Negative); Blood,Urine Large (Negative); Budding Yeast,Urine Rare /hpf; Color,Urine Yellow; Glucose,Urine (UA) Negative (Negative); Ketones,Urine Trace (Negative); Leukocyte Esterase,Urine Large (Negative); Nitrite,Urine Negative (Negative); PH, Urine 6.5 (5.0-8.0); Protein,Urine Trace (Negative); RBC,Urine 31 /hpf (0-5); Specific Gravity,Urine 1.026 (1.001-1.035); Urobilinogen,Urine <2.0 mg/dL (<2.0); WBC,Urine 14 /hpf (0-5)
[2024-11-24] MEDS: LOPERAMIDE 2 MG CAP PO SCH (09:46)
[2024-11-24] MEDS: ESCITALOPRAM 20 MG TAB PO SCH (09:46)
[2024-11-24] MEDS: DONEPEZIL 10 MG TAB PO SCH (09:46)
[2024-11-24] MEDS: MEMANTINE 5 MG TAB PO SCH (09:46)
[2024-11-24] MEDS: ENOXAPARIN 40 MG/0.4 ML SYRINGE SQ SCH (09:47)
[2024-11-24] MEDS: METOPROLOL SUCCINATE (ER) 25 MG TAB.ER.24H PO SCH (09:47)
[2024-11-24] MEDS: MULTIVITAMINS, THERA 1 EACH TAB PO SCH (09:47)
--- NOTE | 2024-11-24 15:52 | P.PN ---
Subjective Progress Note Date: 11/24/24 Hospital Course: A 74-year-old female with history of HFpEF, urinary incontinence, dementia, de pression, residing at the living facility [facility]. Patient poor historian. Per ER note, she has been reportedly lethargic compared to baseline. While speaking to the patient she states she feels well and has no complaints. She denies shortness of breath, abdominal pain, constipation, and dysuria. ER FINDINGS: Labs significant for WBC 12.7, BUN 22, negative viral respiratory panel EKG independently interpreted showed sinus rhythm heart rate of 85, left axis deviation, no ST segment elevation or depression seen, no T-wave inversions seen. Chest x-ray done independently interpreted showed vascular congestion CT head independently interpreted showed no acute intracranial process. UA showed cloudy urine with positive leukocyte esterase, WBC 14, bacteriuria, was obtained after antibiotics Recently discharged on 11/13/2024 after being treated for acute encephalopathy secondary to pneumonia, gastroenteritis. She was also admitted for voluntary hospitalization to evaluate show for e valuation of new onset dementia, was started on Namenda and Aricept, his history of visual hallucinations. Attempted to contact patient's DPOA, no response. Per chart review, at baseline patient is normally talkative and converses. She is now alert, awake, and oriented to self only, denied any complaints Pertinent Imaging: Abdominal x-ray showed no acute pathology Subjective: Seen and examined at bedside, she is only alert and oriented to self, she is resting comfortably, she denies any complaints Pertinent positives and negatives as discussed above, a complete review of systems was performed and all other systems are negative. Vitals Signs Reviewed. General: [nontoxic], [no distress], [appears at stated age] Derm: [warm], [dry] Head: [atraumatic], [normocephalic], [symmetric] Eyes: [EOMI], [no lid lag], [anicteric sclera] Mouth: [no lip lesion], [mucus membranes moist] Cardiovascular: [S1S2 reg], [no murmur] Lungs: [CTA bilateral], [no rhonchi, no rales] , [no accessory muscle use] Abdominal: [soft], [ nontender to palpation], [no guarding], [no appreciable organomegaly] Ext: [no gross muscle atrophy], [no edema], [no contractures] Neuro: [ CN II-XI grossly intact], [no focal neuro deficits] Psych: [Alert], [oriented], [self-limiting Data Reviewed Today: Pertinent Labs: CBC with improving leukocytosis 11.3, normal and stable hemoglobin, platelet count, UA as above, normal creatinine, sodium, potassium Assessment and Plan: sepsis secondary to a UTI, present on admission Acute metabolic encephalopathy secondary to above -Urine cultures ordered and pending, blood cultures ordered and pending -Continue ceftriaxone SOT 11/23 -TTE ordered and pending -Continue IV fluids, blood pressure improved -called DPOA 11/24 , no response -afebrile since 11/23 9PM -Depression Lexapro 20 mg a day -Primary osteoarthritis Tylenol as needed -Chronic insomnia Melatonin 5 mg nightly -Chronic urinary incontinence Ditropan XL 5 mg nightly Chronic Medical Conditions A-fib - Resume home Metoprolol used to follow-up with PCP regarding anticoagulation management. Is unclear why patient is not anticoagulated in the setting Anxiety/Depression- Resume home Lexapro, Xanax Dementiaresume home memantine Parkinson'sresume home donepezil Overactive bladderhold home oxybutynin DVT ppx: Subq Lovenox 40 meq daily Code status: Full code N: Heart healthy diet Anticipated discharge place: Pending clinical course Anticipated discharge time: Pending clinical course Objective - Vital Signs Vital signs: Vital Signs Temp 98.8 F 11/24/24 08:00 Pulse 82 11/24/24 08:00 Resp 16 11/24/24 08:00 BP 132/72 11/24/24 08:00 Pulse Ox 97 11/24/24 08:00 FiO2 Intake & Output 11/23/24 11/24/24 11/24/24 18:59 06:59 18:59 Weight 49.895 kg Other: Voiding Method Incontinent - Labs CBC & Chem 7: 11/24/24 06:44 11/24/24 03:38 Labs: Abnormal Lab Results - Last 24 Hours (Table) 11/23/24 11/23/24 11/24/24 Range/Units 19:15 19:15 03:38 WBC 12.7 H (3.8-10.6) k/uL MCHC (31.0-37.0) g/dL Neutrophils # 11.2 H (1.3-7.7) k/uL Lymphocytes # 0.4 L (1.0-4.8) k/uL Carbon Dioxide 21 L (22-30) mmol/L BUN 22 H 19 H (7-17) mg/dL Total Protein 5.6 L (6.3-8.2) g/dL Albumin 3.3 L (3.5-5.0) g/dL Urine Appearance (Clear) Urine Protein (Negative) Urine Ketones (Negative) Urine Blood (Negative) Ur Leukocyte Esterase (Negative) Urine RBC (0-5) /hpf Urine WBC (0-5) /hpf Amorphous Sediment (None) /hpf Urine Bacteria (None) /hpf Urine Yeast (Budding) (None) /hpf 11/24/24 11/24/24 Range/Units 06:28 06:44 WBC 11.3 H (3.8-10.6) k/uL MCHC 30.5 L (31.0-37.0) g/dL Neutrophils # 9.5 H (1.3-7.7) k/uL Lymphocytes # 0.5 L (1.0-4.8) k/uL Carbon Dioxide (22-30) mmol/L BUN (7-17) mg/dL Total Protein (6.3-8.2) g/dL Albumin (3.5-5.0) g/dL Urine Appearance Cloudy H (Clear) Urine Protein Trace H (Negative) Urine Ketones Trace H (Negative) Urine Blood Large H (Negative) Ur Leukocyte Esterase Large H (Negative) Urine RBC 31 H (0-5) /hpf Urine WBC 14 H (0-5) /hpf Amorphous Sediment Rare H (None) /hpf Urine Bacteria Occasional H (None) /hpf Urine Yeast (Budding) Rare H (None) /hpf
[2024-11-24] MEDS: ALPRAZolam 0.5 MG TAB PO PRN (16:27)
[2024-11-24] MEDS: LOPERAMIDE 2 MG CAP PO PRN (16:27)
[2024-11-25] MEDS: SENNOSIDES-DOCUSATE SODIUM 1 EACH TAB PO SCH (00:43)
[2024-11-25] MEDS: MELATONIN 5 MG TABLET PO SCH (00:43)
--- NOTE | 2024-11-25 10:24 | CA ---
Transthoracic Echo Report Name: Susanna Krishnamurthy Age: 74 Gender: F : 1950 Exam Date: 11/24/2024 10:46 Exam Location: [facility] Ht (in): 60 Wt (lb): 110 Ordering Physician: Mateo Cano MD Attending/Referring Phys: Clearance Diver Amy Uribe RDCS Procedure CPT: Indications: elevated pro BNP Cardiac Hx: Technical Quality: Fair, pt uncooperative Contrast 1: Total Dose (mL): Contrast 2: Total Dose (mL): MEASUREMENTS (Male / Female) Normal Values 2D ECHO LV Diastolic Diameter PLAX 5.6 cm 4.2 - 5.9 / 3.9 - 5.3 cm LV Systolic Diameter PLAX 4.4 cm IVS Diastolic Thickness 1.2 cm 0.6 - 1.0 / 0.6 - 0.9 cm LVPW Diastolic Thickness 1.1 cm 0.6 - 1.0 / 0.6 - 0.9 cm LV Relative Wall Thickness 0.4 RV Internal Dim ED PLAX 2.6 cm LA Systolic Diameter LX 6.5 cm 3.0 - 4.0 / 2.7 - 3.8 cm LV Diastolic Volume MOD BP 48.7 cm??? 67 - 155 / 56 - 104 cm??? LV Systolic Volume MOD BP 36.7 cm??? 22 - 58 / 19 - 49 cm??? LV Ejection Fraction MOD BP 24.6 % >= 55 % LV Cardiac Index MOD BP 880.6 cm???/min???m??? LV Diastolic Volume MOD 4C 67.0 cm??? LV Systolic Volume MOD 4C 46.7 cm??? LV Ejection Fraction MOD 4C 30.3 % LV Cardiac Index MOD 4C 1490.2 cm???/min???m??? LV Diastolic Length 4C 6.1 cm LV Systolic Length 4C 5.5 cm LV Diastolic Volume MOD 2C 37.9 cm??? LV Systolic Volume MOD 2C 28.2 cm??? LV Ejection Fraction MOD 2C 25.6 % LV Cardiac Index MOD 2C 711.2 cm???/min???m??? LV Diastolic Length 2C 5.8 cm LV Systolic Length 2C 5.3 cm LA Volume 173.3 cm??? 18 - 58 / 22 - 52 cm??? LA Volume Index 118.9 cm???/m??? 16 - 28 cm???/m??? M-MODE Aortic Root Diameter MM 3.0 cm LA Systolic Diameter MM 6.4 cm LA Ao Ratio MM 2.1 AV Cusp Separation MM 1.9 cm DOPPLER AV Peak Velocity 158.9 cm/s AV Peak Gradient 10.1 mmHg AI Peak Velocity 399.2 cm/s AI Peak Gradient 63.8 mmHg AI Pressure Half Time 411.6 ms MV Peak Velocity 138.9 cm/s MV Peak Gradient 7.7 mmHg MV Mean Velocity 83.5 cm/s MV Mean Gradient 6.8 mmHg MV Velocity Time Integral 31.0 cm MV Area PHT 3.0 cm??? MR Peak Velocity 619.2 cm/s MR Peak Gradient 153.3 mmHg Mitral E Point Velocity 173.7 cm/s Mitral A Point Velocity 151.4 cm/s Mitral E to A Ratio 1.1 MV Deceleration Time 251.4 ms TV Peak Velocity 142.6 cm/s TR Peak Velocity 273.9 cm/s TR Peak Gradient 30.0 mmHg Right Atrial Pressure 8.0 mmHg Pulmonary Artery Systolic Pressu 38.0 mmHg Right Ventricular Systolic Press 38.0 mmHg FINDINGS Left Ventricle Left ventricular ejection fraction is estimated at 30-35%. Mildly increased septal wall thickness. Mildly increased posterior wall thickness. Mildly increased left ventricular diastolic diameter. Moderately reduced global left ventricular systolic function. Right Ventricle Mild right ventricular dilatation. Mild pulmonary hypertension. Right Atrium Mild right atrial dilatation. Left Atrium Severely increased left atrial diameter. Severely increased left atrial volume. Mitral Valve MV repair seen, MV mean PG 6.82. Severe mitral regurgitation. Aortic Valve Trileaflet aortic valve. No aortic stenosis. Mild aortic regurgitation. Tricuspid Valve Tricuspid valve not well visualized. Mild tricuspid regurgitation. No tricuspid stenosis. Pulmonic Valve Structurally normal pulmonic valve. Moderate pulmonic regurgitation. No pulmonic stenosis. Pericardium No pericardial or pleural effusion. Aorta Normal size aortic root and proximal ascending aorta. CONCLUSIONS LVEF 35% Moderately reduced global left ventricular systolic function. Severe left atrial dilatation with signs of elevated LA filling pressures Mild RV dilatation with RVSP of 38 mmHg Status post mitral valve repair with mild mitral stenosis and severe mitral regurgitation Mild aortic regurgitation. Previewed by: Dr Scott Castrejon (Electronically Signed) Final Date: 24 November 2024 12:26
[2024-11-25 10:33] LABS: Basophils # (A) 0.04 X 10*3/uL (0.00-0.10); Basophils % (A) 0.6 %; Eosinophils % (A) 1.5 %; HCT 40.6 % (37.2-46.3); HGB 13.2 g/dL (12.0-15.0); Lymphocytes # (A) 0.51 X 10*3/uL (0.90-5.00); Lymphocytes % (A) 7.6 %; MCH 30.1 pg (27.0-32.0); MCHC 32.5 g/dL (32.0-37.0); MCV 92.5 FL (80.0-97.0); Mean Platelet Volume 11.1 FL (9.5-12.2); Monocytes # (A) 0.86 X 10*3/uL (0.20-1.00); Monocytes % (A) 12.8 %; NRBC Per 100 WBC 0 X 10*3/uL (0.00-0.01); Neutrophils # (A) 5.19 X 10*3/uL (1.80-7.70); Neutrophils % (A) 77.1 %; Platelet Count 197 X 10*3/uL (140-440); RBC 4.39 X 10*6/uL (4.10-5.20); RDW 13.2 % (11.5-14.5); WBC 6.73 X 10*3/uL (4.50-10.00)
[2024-11-25 11:23] LABS: BUN/Creat Ratio 16.33 Ratio (12.00-20.00); Blood Urea Nitrogen 9.8 mg/dL (9.0-27.0); Calcium 8.7 mg/dL (8.7-10.3); Carbon Dioxide 22.1 mmol/L (21.6-31.8); Chloride 106 mmol/L (96-109); Glucose 83 mg/dL (70-110); Potassium 3.5 mmol/L (3.5-5.5); Sodium 142 mmol/L (135-145)
[2024-11-25] MEDS ORDERED: ZINC OXIDE PASTE (Z-GUARD) 1 APPLIC TOPICAL PRN (11:28)
--- NOTE | 2024-11-25 16:04 | P.PN ---
Subjective Progress Note Date: 11/25/24 Hospital Course: A 74-year-old female with history of HFpEF, urinary incontinence, dementia, de pression, residing at the living facility [facility]. Patient poor historian. Per ER note, she has been reportedly lethargic compared to baseline. While speaking to the patient she states she feels well and has no complaints. She denies shortness of breath, abdominal pain, constipation, and dysuria. ER FINDINGS: Labs significant for WBC 12.7, BUN 22, negative viral respiratory panel EKG independently interpreted showed sinus rhythm heart rate of 85, left axis deviation, no ST segment elevation or depression seen, no T-wave inversions seen. Chest x-ray done independently interpreted showed vascular congestion CT head independently interpreted showed no acute intracranial process. UA showed cloudy urine with positive leukocyte esterase, WBC 14, bacteriuria, was obtained after antibiotics Recently discharged on 11/13/2024 after being treated for acute encephalopathy secondary to pneumonia, gastroenteritis. She was also admitted for voluntary hospitalization to evaluate show for e valuation of new onset dementia, was started on Namenda and Aricept, his history of visual hallucinations. TTE showed EF of 35%, severe left atrial dilation with signs of elevated LA filling pressure, mild RV dilation, RVSP 38, status post mitral valve repair with mitral stenosis and severe mitral regurg, Discussed TTE findings with patient's POA, she stated that she does not believe that patient needs to have any intervention done for her heart failure at the moment, she declined cardiology consultation, she believes that patient dementia is going downhill. She also agreed to get a referral for outpatient cardiology evaluation should she change her mind. Currently no signs of exacerbation Subjective: Seen and examined at bedside, she is only alert and oriented to self, she is resting comfortably, she denies any complaints Pertinent positives and negatives as discussed above, a complete review of systems was performed and all other systems are negative. Vitals Signs Reviewed. General: [nontoxic], [no distress], [appears at stated age] Derm: [warm], [dry] Head: [atraumatic], [normocephalic], [symmetric] Eyes: [EOMI], [no lid lag], [anicteric sclera] Mouth: [no lip lesion], [mucus membranes moist] Cardiovascular: [S1S2 reg], [no murmur] Lungs: [CTA bilateral], [no rhonchi, no rales] , [no accessory muscle use] Abdominal: [soft], [ nontender to palpation], [no guarding], [no appreciable organomegaly] Ext: [no gross muscle atrophy], [no edema], [no contractures] Neuro: [ CN II-XI grossly intact], [no focal neuro deficits] Psych: [Alert], [oriented], [self-limiting Data Reviewed Today: Pertinent Labs: CBC with improving leukocytosis 11.3, normal and stable hemoglobin, platelet count, UA as above, normal creatinine, sodium, potassium Assessment and Plan: sepsis secondary to a UTI, present on admission Acute metabolic encephalopathy secondary to above -Urine cultures ordered and pending, blood cultures ordered and pending-but preliminary negative -Continue ceftriaxone SOT 11/23 -afebrile since 11/23 9PM -Anticipate discharge 11/26, patient is afebrile, leukocytosis resolved, blood cultures preliminary negative, urine cultures preliminary negative HFrEF 35% not in exacerbation severe left atrial dilation with signs of elevated LA filling pressure mild RV dilation RVSP 38 status post mitral valve repair with mitral stenosis and severe mitral regurg -Discussed TTE findings with patient's POA, she stated that she does not believe that patient needs to have any intervention done for her heart failure at the moment, she declined cardiology consultation, she believes that patient dementia is going downhill. She also agreed to get a referral for outpatient cardiology evaluation should she change her mind -Patient will be continued on metoprolol -Patient is not anticoagulation per POA -Patient to follow-up with PCP and cardiology -Depression Lexapro 20 mg a day -Primary osteoarthritis Tylenol as needed -Chronic insomnia Melatonin 5 mg nightly -Chronic urinary incontinence Ditropan XL 5 mg nightly Chronic Medical Conditions A-fib - Resume home Metoprolol used to follow-up with PCP regarding anticoagulation management. Is unclear why patient is not anticoagulated in the setting Anxiety/Depression- Resume home Lexapro, Xanax Dementiaresume home memantine Parkinson'sresume home donepezil Overactive bladderhold home oxybutynin DVT ppx: Subq Lovenox 40 meq daily Code status: Full code N: Heart healthy diet Anticipated discharge place: Back to her senior facility Anticipated discharge time: 11/26 Objective - Vital Signs Vital signs: Vital Signs Temp 99.3 F 11/25/24 13:09 Pulse 104 H 11/25/24 13:09 Resp 17 11/25/24 13:09 BP 163/88 11/25/24 13:09 Pulse Ox 93 L 11/25/24 13:09 FiO2 Intake & Output 11/24/24 11/25/24 11/25/24 18:59 06:59 18:59 Intake Total 240 Output Total 200 Balance -200 240 Weight 49.895 kg Intake: Oral 240 Output: Urine 200 Other: Voiding Method Incontinent Diaper Diaper Incontinent Incontinent # Bowel Movements 1 - Labs CBC & Chem 7: 11/25/24 06:45 11/25/24 06:45 Labs: Abnormal Lab Results - Last 24 Hours (Table) 11/25/24 11/25/24 Range/Units 06:45 06:45 Lymphocytes # 0.51 L (0.90-5.00) X 10*3/uL Anion Gap 13.90 H (4.00-12.00) mmol/L Microbiology - Last 24 Hours (Table) 11/24/24 06:28 Urine Culture - Preliminary Urine,Voided 11/23/24 19:15 Blood Culture - Preliminary Blood
[2024-11-26 08:38] LABS: Basophils # (A) 0.03 X 10*3/uL (0.00-0.10); Basophils % (A) 0.6 %; Eosinophils # (A) 0.11 X 10*3/uL (0.04-0.35); Eosinophils % (A) 2.2 %; HCT 38.2 % (37.2-46.3); HGB 12.9 g/dL (12.0-15.0); Lymphocytes # (A) 0.57 X 10*3/uL (0.90-5.00); Lymphocytes % (A) 11.5 %; MCH 30.1 pg (27.0-32.0); MCHC 33.8 g/dL (32.0-37.0); Mean Platelet Volume 10.9 FL (9.5-12.2); Monocytes # (A) 0.92 X 10*3/uL (0.20-1.00); Monocytes % (A) 18.5 %; NRBC Per 100 WBC 0 X 10*3/uL (0.00-0.01); Neutrophils # (A) 3.31 X 10*3/uL (1.80-7.70); Neutrophils % (A) 66.8 %; Platelet Count 214 X 10*3/uL (140-440); RBC 4.29 X 10*6/uL (4.10-5.20); RDW 13.2 % (11.5-14.5); WBC 4.96 X 10*3/uL (4.50-10.00)
[2024-11-26 08:47] LABS: BUN/Creat Ratio 7.86 Ratio (12.00-20.00); Blood Urea Nitrogen 5.5 mg/dL (9.0-27.0); Calcium 8.6 mg/dL (8.7-10.3); Carbon Dioxide 23.9 mmol/L (21.6-31.8); Chloride 105 mmol/L (96-109); Glucose 97 mg/dL (70-110); Potassium 3.3 mmol/L (3.5-5.5); Sodium 142 mmol/L (135-145)
[2024-11-26] MEDS: POTASSIUM CHLORIDE ER 20 MEQ TAB.ER PO STA (10:59)
[2024-11-26 12:18] VITALS: BP 149/75; PULSE 62; RESP 17; TEMP 98.3
--- NOTE | 2024-11-26 12:51 | P.DS ---
Providers Date of admission: 11/23/24 22:34 Attending physician: Monica Larry MD Primary care physician: Mario Torre Hospital Course: Discharge Diagnosis: sepsis secondary to a UTI, present on admission HFrEF 35% not in exacerbation severe left atrial dilation with signs of elevated LA filling pressure mild RV dilation RVSP 38 status post mitral valve repair with mitral stenosis and severe mitral regurg Primary osteoarthritis Chronic insomnia Chronic urinary incontinence Paroxysmal A-fib not on anticoagulation Anxiety/depression Dementia Parkinson's Overactive bladder Hospital Course: A 74-year-old female with history of HFpEF, urinary incontinence, dementia, depression, residing at the living facility [facility]. Patient poor historian. Per ER note, she has been reportedly lethargic compared to baseline. While speaking to the patient she states she feels well and has no complaints. She denies shortness of breath, abdominal pain, constipation, and dysuria. ER FINDINGS: Labs significant for WBC 12.7, BUN 22, negative viral respiratory panel EKG independently interpreted showed sinus rhythm heart rate of 85, left axis deviation, no ST segment elevation or depression seen, no T-wave inversions seen. Chest x-ray done independently interpreted showed vascular congestion CT head independently interpreted showed no acute intracranial process. UA showed cloudy urine with positive leukocyte esterase, WBC 14, bacteriuria, was obtained after antibiotics Recently discharged on 11/13/2024 after being treated for acute encephalopathy secondary to pneumonia, gastroenteritis. She was also admitted for voluntary hospitalization to evaluate show for evaluation of new onset dementia, was started on Namenda and Aricept, his history of visual hallucinations. TTE showed EF of 35%, severe left atrial dilation with signs of elevated LA filling pressure, mild RV dilation, RVSP 38, status post mitral valve repair with mitral stenosis and severe mitral regurg, Discussed TTE findings with patient's POA, she stated that she does not believe that patient needs to have any intervention done for her heart failure at the moment, she declined cardiology consultation, she believes that patient dementia is going downhill. She also agreed to get a referral for outpatient cardiology evaluation should she change her mind. Currently no signs of exacerbation Patient will be discharged on Keflex to complete total 7 days of treatment Patient seen and examined at bedside.[] Vital signs reviewed and stable. General: [nontoxic], [no distress], [appears at stated age] Derm: [warm], [dry] Head: [atraumatic], [normocephalic], [symmetric] Eyes: [EOMI], [no lid lag], [anicteric sclera] Mouth: [no lip lesion], [mucus membranes moist] Cardiovascular: [S1S2 reg], murmur] Lungs: [CTA bilateral], [no rhonchi, no rales] , [no accessory muscle use] Abdominal: [soft], [ nontender to palpation], [no guarding], [no appreciable organomegaly] Ext: [no gross muscle atrophy], [no edema], [no contractures] Neuro: [ CN II-XI grossly intact], [no focal neuro deficits] Psych: [Alert], [oriented] to self A total of 40minutes of time were spent preparing this complex discharge summary. Patient was discharged on [11/26]. Plan - Discharge Summary New Discharge Prescriptions: New Cephalexin [Keflex] 500 mg PO BID #7 cap Continue Metoprolol Succinate [Toprol XL] 25 mg PO DAILY@0800 Loperamide HCl [Loperamide] 2 mg PO QID PRN PRN Reason: Diarrhea ALPRAZolam [Xanax] 0.5 mg PO BID PRN PRN Reason: Anxiety Oxybutynin Xl [Ditropan XL] 5 mg PO HS@2000 Memantine [Namenda] 5 mg PO BID@0800,1999 Melatonin 5 mg PO HS@2000 Loperamide [Imodium] 4 mg PO DAILY@0800 Donepezil [Aricept] 10 mg PO DAILY@0800 Acetaminophen [Tylenol Arthritis] 650 mg PO BID@0800,1999 Tolnaftate [Tolnaftate 1%] 1 applic TOPICAL BID PRN PRN Reason: antifungal Acetaminophen Tab [Tylenol] 650 mg PO Q4H PRN PRN Reason: Fever Ergocalciferol [Vitamin D2 (1250 Mcg = 01509 Iu)] 1,250 mcg PO MO@0800 Multivitamins, Thera [Multivitamin (formulary)] 1 tab PO DAILY@0800 Escitalopram [Lexapro] 20 mg PO DAILY@0800 Sennosides/Docusate Sodium [Senna Plus 8.6-50 mg Tablet] 2 tab PO HS@2000 Discharge Medication List Metoprolol Succinate [Toprol XL] 25 mg PO DAILY@0800 02/16/20 [History] ALPRAZolam [Xanax] 0.5 mg PO BID PRN 09/27/24 [History] Acetaminophen Tab [Tylenol] 650 mg PO Q4H PRN 09/27/24 [History] Acetaminophen [Tylenol Arthritis] 650 mg PO BID@799,199909/27/24 [History] Donepezil [Aricept] 10 mg PO DAILY@79909/27/24 [History] Ergocalciferol [Vitamin D2 (1250 Mcg = 37911 Iu)] 1,250 mcg PO MO@79909/27/24 [History] Escitalopram [Lexapro] 20 mg PO DAILY@79909/27/24 [History] Loperamide HCl [Loperamide] 2 mg PO QID PRN 09/27/24 [History] Loperamide [Imodium] 4 mg PO DAILY@79909/27/24 [History] Melatonin 5 mg PO HS@199909/27/24 [History] Memantine [Namenda] 5 mg PO BID@799,199909/27/24 [History] Multivitamins, Thera [Multivitamin (formulary)] 1 tab PO DAILY@79909/27/24 [History] Oxybutynin Xl [Ditropan XL] 5 mg PO HS@199909/27/24 [History] Tolnaftate [Tolnaftate 1%] 1 applic TOPICAL BID PRN 09/27/24 [History] Sennosides/Docusate Sodium [Senna Plus 8.6-50 mg Tablet] 2 tab PO HS@199911/23/24 [History] Cephalexin [Keflex] 500 mg PO BID #7 cap 11/26/24 [Rx] Follow up Appointment(s)/Referral(s): León Snow DO [STAFF PHYSICIAN] - 1 Week Mario Torre MD [Primary Care Provider] - 1-2 days Activity/Diet/Wound Care/Special Instructions: At discharge POA is requesting to be contacted, wishes to transport patient by cab, not ambulance as discussed with POA, should you choose to precede with more heart work up, you can contact firewall security engineer. follow up with PCP Discharge Disposition: HOME SELF-CARE
[2024-11-26] MEDS: CEPHALEXIN 500 MG CAP PO SCH (14:26)
[2024-11-29] MEDS ORDERED: ERGOCALCIFEROL 1,250 MCG (50,000 IU) CAPSULE PO SCH (08:00)
== END 2024-11-26 17:40 | disposition home or self-care (01) | DRG 871 ==
LOC: EC 18:12 → OBSVTOIN 22:34 → 5NMEDONC 22:34
PROVIDERS: ADMIT Internal Medicine; ATTEND Internal Medicine
DX: A41.9 Sepsis, unspecified organism (principal); G93.41 Metabolic encephalopathy; I50.22 Chronic systolic (congestive) heart failure; G20.A1 Parkinson's disease without dyskinesia, without mention of fluctuations; E86.0 Dehydration; F32.A Depression, unspecified; I48.0 Paroxysmal atrial fibrillation; F02.80 Dementia in other diseases classified elsewhere, unspecified severity, without behavioral disturbance, psychotic disturbance, mood disturbance, and anxiety; Z95.2 Presence of prosthetic heart valve; N39.0 Urinary tract infection, site not specified; R65.20 Severe sepsis without septic shock; F41.9 Anxiety disorder, unspecified; Z11.52 Encounter for screening for COVID-19; R32 Unspecified urinary incontinence; M19.91 Primary osteoarthritis, unspecified site; F51.04 Psychophysiologic insomnia; Z96.642 Presence of left artificial hip joint; Z79.899 Other long term (current) drug therapy; N32.81 Overactive bladder
CPT/HCPCS: 36415; 70450; 71046; 72125; 74018; 80048; 80053; 81001; 83605; 83880; 85025; 85610; 85730; 87040; 87077; 87086; 87186; 87636; 93005; 93306; 96361; 96365; 96366; 96367; 96372; 99291

== ENCOUNTER 2024-12-16 02:09 | Emergency (ER) | payer MEDICARE ==
[2024-12-16 02:18] VITALS: BP 123/82; PULSE 67; RESP 16; TEMP 98.7
--- NOTE | 2024-12-16 03:13 | CT ---
EXAM: CT Head Without Intravenous Contrast CLINICAL HISTORY: ITS.REASON CT Reason: fall injury TECHNIQUE: Axial computed tomography images of the head/brain without intravenous contrast. CTDI is 45.3 mGy and DLP is 1122 mGy-cm. This CT exam was performed using one or more of the following dose reduction techniques: automated exposure control, adjustment of the mA and/or kV according to patient size, and/or use of iterative reconstruction technique. COMPARISON: No relevant prior studies available. FINDINGS: Brain: No hemorrhage or mass effect. Ventricles: No hydrocephalus. Bones/joints: Unremarkable. Soft tissues: Unremarkable. Sinuses: No air fluid level. Mastoid air cells: Clear. IMPRESSION: No acute hemorrhage, hydrocephalus, or mass effect. EXAM: CT Cervical Spine Without Intravenous Contrast CLINICAL HISTORY: ITS.REASON CT Reason: fall injury TECHNIQUE: Axial computed tomography images of the cervical spine without intravenous contrast. CTDI is 7.7 mGy and DLP is 228.2 mGy-cm. This CT exam was performed using one or more of the following dose reduction techniques: automated exposure control, adjustment of the mA and/or kV according to patient size, and/or use of iterative reconstruction technique. COMPARISON: No relevant prior studies available. FINDINGS: Vertebrae: No acute fracture. Discs/spinal canal/neural foramina: degenerative changes. Soft tissues: No prevertebral swelling. IMPRESSION: No acute fracture or subluxation.
--- NOTE | 2024-12-16 03:38 | ED ---
Fall HPI - General Chief Complaint: Fall Stated Complaint: Fall Time Seen by Provider: 12/16/24 02:25 Source: patient Mode of arrival: EMS Limitations: altered mental status (History of dementia) - History of Present Illness Initial Comments: This patient is 74-year-old woman sent from long-term care facility to have evaluation after she fell. The patient was found on the ground adjacent to bed. Patient reportedly has moderately severe dementia and is only oriented to person. The patient is not able to give me any history. MD Complaint: fall -: unknown Fall From: out of bed When Fall Occurred: unsure Fall Witnessed: no Place Fall Occurred: custodial/SNF Loss of Consciousness: none Prolonged Down Time?: no Location: head Context: history of frequent falls - Related Data Home Medications Medication Instructions Recorded Confirmed Metoprolol Succinate [Toprol XL] 25 mg PO DAILY@0800 02/16/20 11/23/24 ALPRAZolam [Xanax] 0.5 mg PO BID PRN 09/27/24 11/23/24 Acetaminophen Tab [Tylenol] 650 mg PO Q4H PRN 09/27/24 11/23/24 Acetaminophen [Tylenol Arthritis] 650 mg PO BID@08,199909/27/24 11/23/24 Donepezil [Aricept] 10 mg PO DAILY@00 09/27/24 11/23/24 Ergocalciferol [Vitamin D2 (1250 1,250 mcg PO MO@79909/27/24 11/23/24 Mcg = 06070 Iu)] Escitalopram [Lexapro] 20 mg PO DAILY@0800 09/27/24 11/23/24 Loperamide HCl [Loperamide] 2 mg PO QID PRN 09/27/24 11/23/24 Loperamide [Imodium] 4 mg PO DAILY@00 09/27/24 11/23/24 Melatonin 5 mg PO HS@199909/27/24 11/23/24 Memantine [Namenda] 5 mg PO BID@0800,199909/27/24 11/23/24 Multivitamins, Thera [Multivitamin 1 tab PO DAILY@0800 09/27/24 11/23/24 (formulary)] Oxybutynin Xl [Ditropan XL] 5 mg PO HS@199909/27/24 11/23/24 Tolnaftate [Tolnaftate 1%] 1 applic TOPICAL BID PRN 09/27/24 11/23/24 Sennosides/Docusate Sodium [Senna 2 tab PO HS@199911/23/24 11/23/24 Plus 8.6-50 mg Tablet] Previous Rx's Medication Instructions Recorded Cephalexin [Keflex] 500 mg PO BID #7 cap 11/26/24 Allergies Allergy/AdvReac Type Severity Reaction Status Date / Time Penicillins Allergy Unknown Verified 11/23/24 20:10 Sulfa (Sulfonamide Allergy Rash/Hives Verified 11/23/24 20:10 Antibiotics) Review of Systems ROS Statement: Those systems with pertinent positive or pertinent negative responses have been documented in the HPI. ROS Other: All systems not noted in ROS Statement are negative. Limitations: ROS unobtainable due to patients medical condition Past Medical History Past Medical History: Atrial Fibrillation, Dementia Additional Past Medical History / Comment(s): Shingles 10/2016 History of Any Multi-Drug Resistant Organisms: VRE Date of last positivie culture/infection: 11/24/24 MDRO Source:: urine Past Surgical History: Cardiac Valve Replacement, Joint Replacement Additional Past Surgical History / Comment(s): Left hip replacement. Past Psychological History: No Psychological Hx Reported Smoking Status: Unknown if ever smoked General Exam General appearance: alert, in no apparent distress Head exam: Present: normocephalic, other (Abrasion and minor laceration. There is contusion. Patient does not manifest tenderness. No obvious deformity.) Eye exam: Present: normal appearance, PERRL, EOMI. Absent: scleral icterus, conjunctival injection Neck exam: Present: normal inspection, other (Arrives in cervical collar). Abs ent: tenderness Respiratory exam: Present: normal lung sounds bilaterally. Absent: respiratory distress, wheezes, rales, rhonchi, stridor, chest wall tenderness, accessory mu scle use Cardiovascular Exam: Present: regular rate, normal rhythm, normal heart sounds. Absent: systolic murmur, diastolic murmur, rubs, gallop GI/Abdominal exam: Present: soft. Absent: distended, tenderness, guarding, rigid, mass Extremities exam: Present: normal inspection, normal capillary refill Back exam: Absent: vertebral tenderness Neurological exam: Present: alert Skin exam: Present: warm, dry, normal color, abrasion. Absent: rash Course Vital Signs 12/16/24 02:14 Temperature 98.7 F Pulse Rate 67 Respiratory 16 Rate Blood Pressure 123/82 O2 Sat by Pulse 96 Oximetry Medical Decision Making - Medical Decision Making The patient had CT scan of the brain and C-spine that I interpreted as negative for acute bony injury, negative for acute intracranial hemorrhage, mass effect or midline shift. Was pt. sent in by a medical professional or institution (, [facility], [facility], urgent care, hospital, or custodial...) When possible be specific @ -[No] Did you speak to anyone other than the patient for history (EMS, parent, family, police, friend...)? What history was obtained from this source @ -[No] Did you review nursing and triage notes (agree or disagree)? Why? @ -[I reviewed and agree with nursing and triage notes] Were old charts reviewed (outside hosp., previous admission, EMS record, old EKG, old radiological studies, urgent care reports/EKG's, custodial records)? Report findings @ -[No old charts were reviewed] Differential Diagnosis (chest pain, altered mental status, abdominal pain women, abdominal pain men, vaginal bleeding, weakness, fever, dyspnea, syncope, headache, dizziness, GI bleed, back pain, seizure, CVA, palpatations, mental health, musculoskeletal)? @ -[Differential Musculoskeletal Muscular strain, contusion, ligament sprain, fracture, arthritis, septic arthritis, bursitis, cellulitis, muscle spasm, nerve compression, DVT, arterial occlusion, herpes zoster, electrolyte abnormality, tumor.... This is not meant to be in all inclusive list EKG interpreted by me (3pts min.). @ -[As above] X-rays interpreted by me (1pt min.). @ -[None done] CT interpreted by me (1pt min.). @ -[I interpreted as above U/S interpreted by me (1pt. min.). @ -[None done] What testing was considered but not performed or refused? (CT, X-rays, U/S, labs)? Why? @ -[None] What meds were considered but not given or refused? Why? @ -[None] Did you discuss the management of the patient with other professionals (professionals i.e. , [facility], [facility], lab, RT, psych nurse, psychiatric social worker, basketball player, teacher, traffic control officer, binder caser)? Give summary @ -[No] Was smoking cessation discussed for >3mins.? @ -[No] Was critical care preformed (if so, how long)? @ -[No] Were there social determinants of health that impacted care today? How? (Homelessness, low income, unemployed, alcoholism, drug addiction, transportation, low edu. Level, literacy, decrease access to med. care, [place] [facility], rehab)? @ -[No] Was there de-escalation of care discussed even if they declined (Discuss DNR or withdrawal of care, Hospice)? DNR status @ -[No] What co-morbidities impacted this encounter? (DM, HTN, Smoking, COPD, CAD, Cancer, CVA, ARF, Chemo, Hep., AIDS, mental health diagnosis, sleep apnea, morbid obesity)? @ -[None] Was patient admitted / discharged? Hospital course, mention meds given and route, prescriptions, significant lab abnormalities, going to OR and other pertinent info. @ -[Patient is 74-year-old woman here to have evaluation after fall. The patient's study is negative. On reevaluation, the patient does appear to be at the patient's described baseline. The lacerations mentioned in the nursing notes are superficial and well-approximated not requiring repair. Undiagnosed new problem with uncertain prognosis? @ -[No] Drug Therapy requiring intensive monitoring for toxicity (Heparin, Nitro, Insulin, Cardizem)? @ -[No] Were any procedures done? @ -[No] Diagnosis/symptom? @ -[Acute fall injury Acute closed head injury Acute, or Chronic, or Acute on Chronic? @ -[Acute Uncomplicated (without systemic symptoms) or Complicated (systemic symptoms)? @ -[Uncomplicated Side effects of treatment? @ -[No] Exacerbation, Progression, or Severe Exacerbation? @ -[No] Poses a threat to life or bodily function? How? (Chest pain, [place], [place], pneumonia, PE, COPD, DKA, ARF, appy, cholecystitis, CVA, Diverticulitis, Homicidal, Suicidal, threat to staff... and all critical care pts) @ -[No] Disposition Clinical Impression: Fall, Head injury Disposition: HOME SELF-CARE Condition: Good Instructions (If sedation given, give patient instructions): Fall Prevention for Older Adults (ED), Head Injury (ED) Is patient prescribed a controlled substance at d/c from ED?: No Referrals: Mario Torre MD [Primary Care Provider] - 1-2 days
== END 2024-12-16 04:07 | disposition home or self-care (01) ==
LOC: EC 02:09
DX: S01.81XA Laceration without foreign body of other part of head, initial encounter (principal); Z88.0 Allergy status to penicillin; Z88.2 Allergy status to sulfonamides; W19.XXXA Unspecified fall, initial encounter; Y92.129 Unspecified place in nursing home as the place of occurrence of the external cause
CPT/HCPCS: 70450; 72125; 99284